=== PATIENT | male | born 1960 | race Caucasian/White ===

== ENCOUNTER 2016-12-09 19:07 | Emergency (ER) | payer MEDICARE, MEDICAID ==
[2016-12-09] MEDS ORDERED: Sodium Chloride 0.9% 10 ML Syringe FLUSH PRN (19:30)
[2016-12-09] MEDS ORDERED: Sodium Chloride 0.9% 500 ML IV SCH (19:30)
[2016-12-09] MEDS ORDERED: Sodium Chloride 0.9% 2.5 ML Syringe FLUSH PRN (19:30)
[2016-12-09] MEDS ORDERED: Ibuprofen 800 MG Tab PO ONE (19:30)
[2016-12-09] MEDS ORDERED: Albuterol/Ipratropium 3.0-0.5 MG/3 ML Neb Soln NEB ONE (19:33)
--- NOTE | 2016-12-09 19:33 | EDM.PDOC ---
ED HISTORY OF PRESENT ILLNESS - General Chief Complaint: Respiratory Problem Stated Complaint: COUGH Time Seen by Provider: 12/09/16 19:24 - History of Present Illness INITIAL COMMENTS - FREE TEXT/NARRATIVE: HISTORY AND PHYSICAL: History of present illness: The patient is a 56 y/o male with a history of diabetes using both oral and insulin and presents with a five-day history of dry hacking cough nonproductive of any phlegm. Patient follows at [facility] but did not see his provider for these issues but he did get his influenza shot this year. The patient denies any cardiac or pulmonary history and has been eating and drinking normally. According to the patient and at bedside he coughs more at night and sometimes will cough so hard that he can throw up. He does not throw up when he is not coughing and has no abdominal complaints. The patient denies any chest pain and only feels short of breath when he is coughing. Patient denies any leg pain or swelling and has no CHF history. Patient states compliance with his medications. He has not used any [id number] medications. He is noted to have a fever here in triage but denies that he feels hot. His palpitations. Review of systems: As per history of present illness and below otherwise all systems reviewed and negative. Past medical history: As per history of present illness and as reviewed below otherwise noncontributory. Surgical history: As per history of present illness and as reviewed below otherwise noncontributory. Social history: No reported history of drug or alcohol abuse. Family history: As per history of present illness and as reviewed below otherwise noncontributory. Physical exam: General: Well-developed well-nourished man speaking clearly and easily without breathlessness and vital signs of the note by me. HEENT: Atraumatic, normocephalic, pupils reactive, negative for conjunctival pallor or scleral icterus, mucous membranes moist, throat clear, neck supple, nontender, trachea midline. No cervical adenopathy or nuchal rigidity Lungs: Clear to auscultation, breath sounds equal bilaterally, chest nontender. No work or breathing or sensory muscle use no wheezing stridor Heart: S1S2, regular rhythm and slightly tachycardic rate of my evaluation, negative for clicks, rubs, or JVD. Abdomen: Soft, nondistended, nontender. Negative for masses or hepatosplenomegaly. Negative for costovertebral tenderness. Pelvis: Stable nontender. Genitourinary: Deferred. Rectal: Deferred. Extremities: Atraumatic, negative for cords or calf pain. Neurovascular unremarkable. No pedal edema or leg asymmetry Neuro: Awake, alert, oriented. Cranial nerves II through XII unremarkable. Cerebellum unremarkable. Motor and sensory unremarkable throughout. Exam nonfocal. Diagnostics: EKG chest x-ray CBC CMP lactic acid influenza swab BNP blood culture x2 Therapeutics: Gentle IV fluids duo neb Rocephin I discussed with the patient and at bedside the testing results and care plan to drop to blood cultures and give Rocephin in the ER and antibiotics for home. I will also give him a spacer and albuterol as he feels that that did help open up his airways and help with the cough. I will advise hydration and close followup with family DrDulce Maria at [facility], . I have advised on reasons to return Impression: Persistent cough, early right lower lobe pneumonia Definitive disposition and diagnosis as appropriate pending reevaluation and review of above. - Related Data Allergies/ADRs: Allergies Allergy/AdvReac Type Severity Reaction Status Date / Time acetaminophen [From Tylenol] Allergy Facial Verified 12/09/16 19:17 Swelling Penicillins Allergy Facial Verified 12/09/16 19:17 Swelling Home Meds: Home Meds Hydrochlorothiazide 25 mg PO DAILY 12/09/16 [History] Insulin Aspart [Novolog] 60 unit SQ BID 12/09/16 [History] metFORMIN [Glucophage] 500 mg PO QID 12/09/16 [History] Past Medical History HEENT History: Reports: None Cardiovascular History: Reports: Hypertension Respiratory History: Reports: None Gastrointestinal History: Reports: None Genitourinary History: Reports: None Psychiatric History: Reports: None Endocrine/Metabolic History: Reports: Diabetes, type II Oncologic (Cancer) History: Reports: None - Infectious Disease History Infectious Disease History: Reports: Chicken pox Social & Family History - Family History Family Medical History: Noncontributory - Tobacco Use Smoking Status *Q: Never Smoker - Recreational Drug Use Recreational Drug Use: No ED ROS GENERAL - Review of Systems Review Of Systems: ROS reveals no pertinent complaints other than HPI. ED EXAM, GENERAL - Physical Exam Exam: See Below (See dictation) Course - Vital Signs Last Recorded V/S: Last Vital Signs Temp 38.2 C H 12/09/16 19:20 Pulse 114 H 12/09/16 19:20 Resp 18 12/09/16 19:20 BP 152/91 H 12/09/16 19:20 Pulse Ox 95 12/09/16 19:20 - Orders/Labs/Meds Orders: Active Orders 24 hr Category Date Time Status EKG Documentation Completion [RC] STAT Care 12/09/16 19:28 Active RT Aerosol Therapy [RC] ASDIRECTED Care 12/09/16 19:33 Active Chest 2V [CR] Stat Exams 12/09/16 19:29 Taken CULTURE BLOOD [BC] Stat Lab 12/09/16 20:45 Ordered CULTURE BLOOD [BC] Stat Lab 12/09/16 20:45 Ordered Sodium Chloride 0.9% [Normal Saline] 500 ml Med 12/09/16 19:30 Active IV STAT Sodium Chloride 0.9% [Saline Flush] Med 12/09/16 19:30 Active 10 ml FLUSH ASDIRECTED PRN Sodium Chloride 0.9% [Saline Flush] Med 12/09/16 19:30 Active 2.5 ml FLUSH ASDIRECTED PRN cefTRIAXone [Rocephin in Dextrose,Iso-Osm 1 GM/50 ML] 1 Med 12/09/16 20:45 Ordered gm Premix Bag 1 bag IV ONETIME Blood Culture x2 Reflex Set [OM.PC] Stat Oth 12/09/16 20:45 Ordered Saline Lock Insert [OM.PC] Stat Oth 12/09/16 19:29 Ordered Medication Orders Sodium Chloride (Normal Saline) 500 mls @ 999 mls/hr IV STAT [facility] Last Admin: 12/09/16 20:01 Dose: 999 mls/hr Ceftriaxone Sodium/Dextrose 1 (gm/ Premix) 50 mls @ 100 mls/hr IV ONETIME ONE Stop: 12/09/16 21:14 Sodium Chloride (Saline Flush) 10 ml FLUSH ASDIRECTED PRN PRN Reason: Keep Vein Open Sodium Chloride (Saline Flush) 2.5 ml FLUSH ASDIRECTED PRN PRN Reason: Keep Vein Open Labs: Laboratory Tests 12/09/16 12/09/16 12/09/16 Range/Units 19:45 19:45 19:45 WBC 5.60 (4.0-11.0) K/uL RBC 4.58 (4.50-5.90) M/uL Hgb 13.6 (13.0-17.0) g/dL Hct 42.1 (38.0-50.0) % MCV 91.9 (80.0-98.0) fL MCH 29.7 (27.0-32.0) pg MCHC 32.3 (31.0-37.0) g/dL RDW Std Deviation 45.9 (28.0-62.0) fl RDW Coeff of Mariangel 14 (11.0-15.0) % Plt Count 148 L (150-400) K/uL MPV 11.40 (7.40-12.00) fL Add Manual Diff YES Neutrophils % (Manual) 55 (48.0-80.0) % Band Neutrophils % 3 % Lymphocytes % (Manual) 22 (16.0-40.0) % Monocytes % (Manual) 16 H (0.0-15.0) % Eosinophils % (Manual) 4 (0.0-7.0) % Nucleated RBC % 0.0 /100WBC Absolute Seg Neuts 3.1 Band Neutrophils # 0.2 Lymphocytes # (Manual) 1.2 Monocytes # (Manual) 0.9 Eosinophils # (Manual) 0.2 Nucleated RBCs # 0 K/uL Lactate 2.1 H (0.20-2.00) mmol/L Sodium 138 (136-146) mmol/L Potassium 4.7 (3.5-5.1) mmol/L Chloride 102 (98-110) mmol/L Carbon Dioxide 25 (21-31) mmol/L BUN 12 (6.0-23.0) mg/dL Creatinine 0.9 (0.6-1.5) mg/dL Est Cr Clr Drug Dosing 100.59 mL/min Estimated GFR (MDRD) > 60.0 ml/min Glucose 157 H (60-110) mg/dL Calcium 9.3 (8.8-10.8) mg/dL Total Bilirubin 0.7 (0.1-1.5) mg/dL AST 32 (5-40) IU/L ALT 36 (8-54) IU/L Alkaline Phosphatase 56 (40-150) B-Natriuretic Peptide (<100) PG/ML Total Protein 8.3 H (6.0-8.0) g/dL Albumin 4.0 (3.5-5.0) g/dL Globulin 4.3 H (2.0-3.5) g/dL Albumin/Globulin Ratio 0.9 L (1.3-2.8) 12/09/16 Range/Units 19:45 WBC (4.0-11.0) K/uL RBC (4.50-5.90) M/uL Hgb (13.0-17.0) g/dL Hct (38.0-50.0) % MCV (80.0-98.0) fL MCH (27.0-32.0) pg MCHC (31.0-37.0) g/dL RDW Std Deviation (28.0-62.0) fl RDW Coeff of Mariangel (11.0-15.0) % Plt Count (150-400) K/uL MPV (7.40-12.00) fL Add Manual Diff Neutrophils % (Manual) (48.0-80.0) % Band Neutrophils % % Lymphocytes % (Manual) (16.0-40.0) % Monocytes % (Manual) (0.0-15.0) % Eosinophils % (Manual) (0.0-7.0) % Nucleated RBC % /100WBC Absolute Seg Neuts Band Neutrophils # Lymphocytes # (Manual) Monocytes # (Manual) Eosinophils # (Manual) Nucleated RBCs # K/uL Lactate (0.20-2.00) mmol/L Sodium (136-146) mmol/L Potassium (3.5-5.1) mmol/L Chloride (98-110) mmol/L Carbon Dioxide (21-31) mmol/L BUN (6.0-23.0) mg/dL Creatinine (0.6-1.5) mg/dL Est Cr Clr Drug Dosing mL/min Estimated GFR (MDRD) ml/min Glucose (60-110) mg/dL Calcium (8.8-10.8) mg/dL Total Bilirubin (0.1-1.5) mg/dL AST (5-40) IU/L ALT (8-54) IU/L Alkaline Phosphatase (40-150) B-Natriuretic Peptide < 15 (<100) PG/ML Total Protein (6.0-8.0) g/dL Albumin (3.5-5.0) g/dL Globulin (2.0-3.5) g/dL Albumin/Globulin Ratio (1.3-2.8) Meds: Medications Generic Name Dose Route Start Last Admin Trade Name Freq PRN Reason Stop Dose Admin Sodium Chloride 500 mls @ 999 mls/hr 12/09/16 19:30 12/09/16 20:01 Normal Saline IV 999 mls/hr STAT TATYANA Administration Ceftriaxone Sodium/Dextrose 1 50 mls @ 100 mls/hr 12/09/16 20:45 gm/ Premix IV 12/09/16 21:14 ONETIME ONE Sodium Chloride 10 ml 12/09/16 19:30 Saline Flush FLUSH ASDIRECTED PRN Keep Vein Open Sodium Chloride 2.5 ml 12/09/16 19:30 Saline Flush FLUSH ASDIRECTED PRN Keep Vein Open Discontinued Medications Generic Name Dose Route Start Last Admin Trade Name Freq PRN Reason Stop Dose Admin Albuterol/Ipratropium 3 ml 12/09/16 19:33 12/09/16 19:41 Duoneb 3.0-0.5 Mg/3 Ml NEB 12/09/16 19:34 3 ml ONETIME ONE Administration Ibuprofen 800 mg 12/09/16 19:30 12/09/16 20:00 Motrin PO 12/09/16 19:31 800 mg ONETIME ONE Administration Departure - Departure Time of Disposition: 20:48 Disposition: Home, Self-Care 01 Condition: good Clinical Impression: Pneumonia Qualifiers: Pneumonia type: due to unspecified organism Laterality: right Lung location: lower lobe of lung Qualified Code(s): J18.1 - Lobar pneumonia, unspecified organism Forms: ED Department Discharge Additional Instructions: The following information is given to patients seen in the emergency department who are being discharged to home. This information is to outline your options for follow-up care. We provide all patients seen in our emergency department with a follow-up referral. The need for follow-up, as well as the timing and circumstances, are variable depending upon the specifics of your emergency department visit. If you don't have a primary care physician on staff, we will provide you with a referral. We always advise you to contact your personal physician following an emergency department visit to inform them of the circumstance of the visit and for follow-up with them and/or the need for any referrals to a consulting specialist. The emergency department will also refer you to a specialist when appropriate. This referral assures that you have the opportunity for followup care with a specialist. All of these measure are taken in an effort to provide you with optimal care, which includes your followup. Under all circumstances we always encourage you to contact your private physician who remains a resource for coordinating your care. When calling for followup care, please make the office aware that this follow-up is from your recent emergency room visit. If for any reason you are refused follow-up, please contact the [facility] emergency department at and ask to speak to the emergency department charge nurse. [facility] Primary care- Internal Medicine and Family [facility] [address] [place] [id number] [place] [address] Please call and schedule a followup appointment early next week with or one of our providers at the clinic. Push hydration rest and use over-the- counter Tylenol or ibuprofen for fevers. Take antibiotics until they are finished. Use the inhaler you have been prescribed today with a spacer as needed every 6 hours for cough or trouble with your breathing. Return to ER as needed and as discussed - My Orders Last 24 Hours: My Active Orders 12/09/16 19:28 EKG Documentation Completion [RC] STAT 12/09/16 19:29 Chest 2V [CR] Stat Saline Lock Insert [OM.PC] Stat 12/09/16 19:30 Sodium Chloride 0.9% [Normal Saline] 500 ml IV STAT Sodium Chloride 0.9% [Saline Flush] 10 ml FLUSH ASDIRECTED PRN Sodium Chloride 0.9% [Saline Flush] 2.5 ml FLUSH ASDIRECTED PRN 12/09/16 19:33 RT Aerosol Therapy [RC] ASDIRECTED 12/09/16 20:45 CULTURE BLOOD [BC] Stat CULTURE BLOOD [BC] Stat cefTRIAXone [Rocephin in Dextrose,Iso-Osm 1 GM/50 ML] 1 gm Premix Bag 1 bag IV ONETIME Blood Culture x2 Reflex Set [OM.PC] Stat - Assessment/Plan Last 24 Hours: My Active Orders 12/09/16 19:28 EKG Documentation Completion [RC] STAT 12/09/16 19:29 Chest 2V [CR] Stat Saline Lock Insert [OM.PC] Stat 12/09/16 19:30 Sodium Chloride 0.9% [Normal Saline] 500 ml IV STAT Sodium Chloride 0.9% [Saline Flush] 10 ml FLUSH ASDIRECTED PRN Sodium Chloride 0.9% [Saline Flush] 2.5 ml FLUSH ASDIRECTED PRN 12/09/16 19:33 RT Aerosol Therapy [RC] ASDIRECTED 12/09/16 20:45 CULTURE BLOOD [BC] Stat CULTURE BLOOD [BC] Stat cefTRIAXone [Rocephin in Dextrose,Iso-Osm 1 GM/50 ML] 1 gm Premix Bag 1 bag IV ONETIME Blood Culture x2 Reflex Set [OM.PC] Stat
[2016-12-09 20:34] LABS: CHLORIDE,CL 102 mmol/L (98-110); SODIUM,NA 138 mmol/L (136-146)
[2016-12-09] MEDS ORDERED: cefTRIAXone 1 GM in Premix Bag 1 BAG IV ONE (20:45)
[2016-12-10 03:11] VITALS: BP 140/81
--- NOTE | 2016-12-12 13:22 | CR ---
EXAM DATE: 12/09/16 PATIENT'S AGE: 56 Patient: KELSI DIAZ Facility: [place], [place] Site . Site : [id number] Study: XRay Chest [id number]/17/2017 8:20:38 PM Ordering Physician: Shaina Benitez Final Report: INDICATION: Cough for 5 days. COMPARISON: 06/10/2014. FINDINGS/IMPRESSION: Question of subtle new minimal infiltrate at the right lung base, possibly representing pneumonia. Lungs otherwise appear clear. Upper normal heart size, stable. Unremarkable pulmonary vasculature. No pleural effusions. Spinal degenerative changes, healed left rib fractures, and healed left clavicle fracture. Dictated by Rylan Manzano MD @ 12/09/2016 8:37:13 PM Dictated by: Rylan Manzano MD @ 12/09/2016 20:38:39 (Electronic Signature) Report Signed by Proxy and Original Signed Document filed in the Medical Record. [email or web address]
== END 2016-12-09 22:01 | disposition home or self-care (01) ==
LOC: MW.ED 19:07
DX: J18.1 Lobar pneumonia, unspecified organism (principal); I10 Essential (primary) hypertension; E11.9 Type 2 diabetes mellitus without complications; Z88.6 Allergy status to analgesic agent; Z88.0 Allergy status to penicillin; Z79.899 Other long term (current) drug therapy
CPT/HCPCS: 36415; 71020; 80053; 83605; 83880; 85025; 87040; 93005; 94664; 96361; 96365; 99284; A9270; J0696; J7040

== ENCOUNTER 2019-03-09 11:57 | Inpatient (IN) | payer MEDICARE, MEDICAID ==
[2019-03-09] MEDS ORDERED: Sodium Chloride 0.9% 10 ML Syringe FLUSH PRN (11:59)
[2019-03-09] MEDS ORDERED: Sodium Chloride 0.9% 2.5 ML Syringe FLUSH PRN (11:59)
[2019-03-09] MEDS ORDERED: Sodium Chloride 0.9% 1,000 ML IV ONE (11:59)
--- NOTE | 2019-03-09 12:05 | EDM.PDOC ---
ED HPI GENERAL MEDICAL PROBLEM - General Chief Complaint: Neurological Problem Stated Complaint: AMB Time Seen by Provider: 03/09/19 11:58 Source of Information: Reports: EMS History Limitations: Reports: No Limitations - History of Present Illness INITIAL COMMENTS - FREE TEXT/NARRATIVE: History of present illness: []Patient was driving erratically and police was notified and followed him home. He is confused unable to give any history. Patient has been admitted here for similar confusion in the past. [facility] so[facility] his [facility] and abrasion on his face and left hand. He is able to say his name and denies any pain. Patient's family requested a dementia workup. She had a similar episode in January this year and was admitted to this hospital and eloped undressed but was stopped in the parking lot by EMS as they were coming in. Review of systems: As per history of present illness and below otherwise all systems reviewed and negative. Past medical history: As per history of present illness and as reviewed below otherwise noncontributory. Surgical history: As per history of present illness and as reviewed below otherwise noncontributory. Social history: No reported history of drug or alcohol abuse. Family history: As per history of present illness and as reviewed below otherwise noncontributory. Physical exam: General: Well developed, well nourished in NAD HEENT: Abrasion right cheek,, normocephalic, pupils reactive, negative for conjunctival pallor or scleral icterus, mucous membranes moist, throat clear, neck supple, nontender, trachea midline. Lungs: Clear to auscultation, breath sounds equal bilaterally, chest nontender. Heart: S1S2, regular, negative for clicks, rubs, or JVD. Abdomen: NABS, Soft, nondistended, nontender. Negative for masses or hepatosplenomegaly. Negative for costovertebral tenderness. Pelvis: Stable nontender. Genitourinary: Deferred. Rectal: Deferred. Extremities:Abrasion left dorsal hand, negative for cords or calf pain. Neurovascular unremarkable. Neuro: Awake, alert, oriented 2 Cranial nerves II through XII unremarkable. Cerebellum unremarkable. Motor and sensory unremarkable throughout. Exam nonfocal. Skin:warm and dry Diagnostics: CT head, C-spine, CBC, chemistry, UA, EKG Therapeutics: IV hydration ED Course: Stable Impression: Altered mental status, abrasion on face and left hand Prescriptions: None Plan: Admit to Dr. Monsalve Definitive disposition and diagnosis as appropriate pending reevaluation and review of above. - Related Data Allergies Allergy/AdvReac Type Severity Reaction Status Date / Time acetaminophen [From Tylenol] Allergy Facial Verified 03/09/19 12:03 Swelling Penicillins Allergy Facial Verified 03/09/19 12:03 Swelling Home Meds: Home Meds Hydrochlorothiazide 25 mg PO DAILY 12/09/16 [History] Insulin Aspart [Novolog] 60 unit SQ BID 12/09/16 [History] metFORMIN [Glucophage] 500 mg PO QID 12/09/16 [History] Past Medical History HEENT History: Reports: None Cardiovascular History: Reports: Hypertension Respiratory History: Reports: None Gastrointestinal History: Reports: None Genitourinary History: Reports: None Psychiatric History: Reports: None Endocrine/Metabolic History: Reports: Diabetes, Type II Oncologic (Cancer) History: Reports: None - Infectious Disease History Infectious Disease History: Reports: Chicken Pox Social & Family History - Family History Family Medical History: Noncontributory ED ROS GENERAL - Review of Systems Review Of Systems: ROS reveals no pertinent complaints other than HPI. ED EXAM, GENERAL - Physical Exam Exam: See Below (History of present illness) Course - Vital Signs Last Recorded V/S: Last Vital Signs Temp 97.6 F 03/09/19 12:04 Pulse 117 H 03/09/19 12:04 Resp 18 03/09/19 12:04 BP 188/117 H 03/09/19 12:04 Pulse Ox 98 03/09/19 12:04 - Orders/Labs/Meds Orders: Active Orders 24 hr Category Date Time Status Patient Status [ADT] Stat ADT 03/09/19 13:32 Active EKG Documentation Completion [RC] STAT Care 03/09/19 11:58 Active Cervical Spine wo Cont [CT] Stat Exams 03/09/19 11:59 Taken Head wo Cont [CT] Stat Exams 03/09/19 11:58 Taken CULTURE URINE [RM] Routine Lab 03/09/19 13:25 Received Levofloxacin/Dextrose 5%-Water [Levaquin in D5W 500 MG/ Med 03/09/19 13:33 Active 100 ML] 500 mg Premix Bag 1 bag IV ONETIME Sodium Chloride 0.9% [Saline Flush] Med 03/09/19 11:59 Active 10 ml FLUSH ASDIRECTED PRN Sodium Chloride 0.9% [Saline Flush] Med 03/09/19 11:59 Active 2.5 ml FLUSH ASDIRECTED PRN Saline Lock Insert [OM.PC] Stat Oth 03/09/19 11:58 Ordered Medication Orders Docusate Sodium (Colace) 100 mg PO BID PRN PRN Reason: Constipation Heparin Sodium (Porcine) (Heparin Sodium) 5,000 units SUBCUT Q8H [facility] Levofloxacin/Dextrose 500 mg/ (Premix) 100 mls @ 100 mls/hr IV ONETIME ONE Stop: 03/09/19 14:32 Last Admin: 03/09/19 13:47 Dose: 100 mls/hr Sodium Chloride (Normal Saline) 1,000 mls @ 75 mls/hr IV ASDIRECTED [facility] Ibuprofen (Motrin) 400 mg PO Q6H PRN PRN Reason: Pain (mild 1-3) Insulin Aspart (Novolog) 0 unit SUBCUT ACBREAKFASTANDBED TATYANA; Protocol Ondansetron HCl (Zofran Odt) 4 mg PO Q6H PRN PRN Reason: nausea, able to take PO Oxycodone HCl (Oxycodone) 5 mg PO Q4H PRN PRN Reason: Pain (moderate 4-6) Sodium Chloride (Saline Flush) 10 ml FLUSH ASDIRECTED PRN PRN Reason: Keep Vein Open Last Admin: 03/09/19 12:12 Dose: 10 ml Sodium Chloride (Saline Flush) 2.5 ml FLUSH ASDIRECTED PRN PRN Reason: Keep Vein Open Last Admin: 03/09/19 12:12 Dose: 2.5 ml Temazepam (Restoril) 15 mg PO BEDTIME PRN PRN Reason: Sleep Labs: Laboratory Tests 03/09/19 03/09/19 03/09/19 Range/Units 12:05 12:05 13:20 WBC 10.01 (4.0-11.0) K/uL RBC 4.45 L (4.50-5.90) M/uL Hgb 13.6 (13.0-17.0) g/dL Hct 40.7 (38.0-50.0) % MCV 91.5 (80.0-98.0) fL MCH 30.6 (27.0-32.0) pg MCHC 33.4 (31.0-37.0) g/dL RDW Std Deviation 45.1 (28.0-62.0) fl RDW Coeff of Mariangel 14 (11.0-15.0) % Plt Count 194 (150-400) K/uL MPV 10.50 (7.40-12.00) fL Neut % (Auto) 77.9 (48.0-80.0) % Lymph % (Auto) 14.0 L (16.0-40.0) % [place] % (Auto) 6.8 (0.0-15.0) % Eos % (Auto) 1.0 (0.0-7.0) % Baso % (Auto) 0.3 (0.0-1.5) % Neut # (Auto) 7.8 H (1.4-5.7) K/uL Lymph # (Auto) 1.4 (0.6-2.4) K/uL [place] # (Auto) 0.7 (0.0-0.8) K/uL Eos # (Auto) 0.1 (0.0-0.7) K/uL Baso # (Auto) 0.0 (0.0-0.1) K/uL Nucleated RBC % 0.0 /100WBC Nucleated RBCs # 0 K/uL Sodium 135 L (136-148) mmol/L Potassium 3.4 L (3.5-5.1) mmol/L Chloride 100 (98-107) mmol/L Carbon Dioxide 25.9 (21.0-32.0) mmol/L BUN 16 (7.0-18.0) mg/dL Creatinine 0.9 (0.8-1.3) mg/dL Est Cr Clr Drug Dosing 83.65 mL/min Estimated GFR (MDRD) > 60.0 ml/min Glucose 239 H (74-106) mg/dL Calcium 8.9 (8.5-10.1) mg/dL Total Bilirubin 0.7 (0.2-1.0) mg/dL AST 33 (15-37) IU/L ALT 53 (14-63) IU/L Alkaline Phosphatase 63 (46-116) U/L Total Protein 7.7 (6.4-8.2) g/dL Albumin 3.6 (3.4-5.0) g/dL Globulin 4.1 H (2.6-4.0) g/dL Albumin/Globulin Ratio 0.9 (0.9-1.6) Urine Color YELLOW Urine Appearance HAZY Urine pH 6.0 (5.0-8.0) Ur Specific [place] 1.015 (1.001-1.035) Urine Protein NEGATIVE (NEGATIVE) mg/dL Urine Glucose (UA) NEGATIVE (NEGATIVE) mg/dL Urine Ketones NEGATIVE (NEGATIVE) mg/dL Urine Occult Blood MODERATE H (NEGATIVE) Urine Nitrite POSITIVE H (NEGATIVE) Urine Bilirubin NEGATIVE (NEGATIVE) Urine Urobilinogen 0.2 (<2.0) EU/dL Ur Leukocyte Esterase SMALL H (NEGATIVE) Urine RBC 6-8 (0-2/HPF) Urine WBC 10-15 (0-5/HPF) Ur Epithelial Cells RARE (NONE-FEW) Urine Bacteria 2+ H (NEGATIVE) Meds: Medications Generic Name Dose Route Start Last Admin Trade Name Freq PRN Reason Stop Dose Admin Docusate Sodium 100 mg 03/09/19 13:56 Colace PO BID PRN Constipation Heparin Sodium (Porcine) 5,000 units 03/09/19 14:00 Heparin Sodium SUBCUT Q8H [facility] Levofloxacin/Dextrose 500 mg/ 100 mls @ 100 mls/hr 03/09/19 13:33 03/09/19 13 :47 Premix IV 03/09/19 14:32 100 mls/hr ONETIME ONE Administration Sodium Chloride 1,000 mls @ 75 mls/hr 03/09/19 14:00 Normal Saline IV ASDIRECTED [facility] Ibuprofen 400 mg 03/09/19 13:56 Motrin PO Q6H PRN Pain (mild 1-3) Insulin Aspart 0 unit 03/09/19 21:00 Novolog SUBCUT ACBREAKFASTANDBED [facility] Protocol Ondansetron HCl 4 mg 03/09/19 13:56 Zofran Odt PO Q6H PRN nausea, able to take PO Oxycodone HCl 5 mg 03/09/19 13:56 Oxycodone PO Q4H PRN Pain (moderate 4-6) Sodium Chloride 10 ml 03/09/19 11:59 03/09/19 12:12 Saline Flush FLUSH 10 ml ASDIRECTED PRN Administration Keep Vein Open Sodium Chloride 2.5 ml 03/09/19 11:59 03/09/19 12:12 Saline Flush FLUSH 2.5 ml ASDIRECTED PRN Administration Keep Vein Open Temazepam 15 mg 03/09/19 13:56 Restoril PO BEDTIME PRN Sleep Discontinued Medications Generic Name Dose Route Start Last Admin Trade Name Freq PRN Reason Stop Dose Admin Sodium Chloride 1,000 mls @ 999 mls/hr 03/09/19 11:59 03/09/19 12:11 Normal Saline IV 03/09/19 12:59 999 mls/hr .Bolus ONE Administration Departure - Departure Time of Disposition: 14:22 Disposition: Refer to Observation Condition: Good Clinical Impression: Altered mental status Qualifiers: Altered mental status type: unspecified Qualified Code(s): R41.82 - Altered mental status, unspecified - Discharge Information *PRESCRIPTION DRUG MONITORING PROGRAM REVIEWED*: No *COPY OF PRESCRIPTION DRUG MONITORING REPORT IN PATIENT MARTIN: No - My Orders Last 24 Hours: My Active Orders 03/09/19 11:58 EKG Documentation Completion [RC] STAT Head wo Cont [CT] Stat Saline Lock Insert [OM.PC] Stat 03/09/19 11:59 Cervical Spine wo Cont [CT] Stat Sodium Chloride 0.9% [Saline Flush] 10 ml FLUSH ASDIRECTED PRN Sodium Chloride 0.9% [Saline Flush] 2.5 ml FLUSH ASDIRECTED PRN 03/09/19 13:25 CULTURE URINE [RM] Routine 03/09/19 13:32 Patient Status [ADT] Stat 03/09/19 13:33 Levofloxacin/Dextrose 5%-Water [Levaquin in D5W 500 MG/100 ML] 500 mg Premix Bag 1 bag IV ONETIME - Assessment/Plan Last 24 Hours: My Active Orders 03/09/19 11:58 EKG Documentation Completion [RC] STAT Head wo Cont [CT] Stat Saline Lock Insert [OM.PC] Stat 03/09/19 11:59 Cervical Spine wo Cont [CT] Stat Sodium Chloride 0.9% [Saline Flush] 10 ml FLUSH ASDIRECTED PRN Sodium Chloride 0.9% [Saline Flush] 2.5 ml FLUSH ASDIRECTED PRN 03/09/19 13:25 CULTURE URINE [RM] Routine 03/09/19 13:32 Patient Status [ADT] Stat 03/09/19 13:33 Levofloxacin/Dextrose 5%-Water [Levaquin in D5W 500 MG/100 ML] 500 mg Premix Bag 1 bag IV ONETIME
[2019-03-09 12:41] LABS: CHLORIDE,CL 100 mmol/L (98-107); SODIUM,NA 135 mmol/L (136-148)
[2019-03-09] MEDS ORDERED: Levofloxacin/Dextrose 5%-Water 500 MG in Premix Bag 1 BAG IV ONE (13:33)
[2019-03-09] MEDS ORDERED: oxyCODONE 5 MG Tab PO PRN (13:56)
[2019-03-09] MEDS ORDERED: Docusate Sodium 100 MG Cap PO PRN (13:56)
[2019-03-09] MEDS ORDERED: Ibuprofen 400 MG Tab PO PRN (13:56)
[2019-03-09] MEDS ORDERED: Ondansetron 4 MG Tab.DIS PO PRN (13:56)
--- NOTE | 2019-03-09 13:59 | PCM.HP ---
H&P History of Present Illness - General Date of Service: 03/09/19 Admit Problem/Dx: Admission Diagnosis/Problem Admission Diagnosis/Problem Altered mental status Source of Information: Patient, Family, Old Records History Limitations: Reports: Altered Mental Status - History of Present Illness Initial Comments - Free Text/Narative: The patient is a 58-year-old gentleman who had been presented to the emergency department by his family out of concern for his altered mental status, bizarre behavior and not taking any of his medications. The patient was previously admitted in January 2019. The patient does have a history of trying to escape at times from his previous hospitalization. The patient's family says that they cannot take care of him anymore at home. Further, the patient's family says that he has been warding urine in jars under his bed as well as not being able to take care of his medications to adequately take care of himself. The patient himself is alert and mostly oriented although he is somewhat vague in his answers and does not know how he got here. A review of records and indicate the patient had been driving erratically and had been picked up by the police department. The patient has admitted to his family that he would like to go to [facility]. Onset of Symptoms: Reports: Unknown/Unsure Duration of Symptoms: Reports: Week(s): Location: Reports: Generalized Severity: Mild Improves with: Reports: None Worsens with: Reports: None Associated Symptoms: Reports: No Other Symptoms - Related Data Allergies/Adverse Reactions: Allergies Allergy/AdvReac Type Severity Reaction Status Date / Time acetaminophen [From Tylenol] Allergy Facial Verified 03/09/19 12:03 Swelling Penicillins Allergy Facial Verified 03/09/19 12:03 Swelling Home Medications: Home Meds Hydrochlorothiazide 25 mg PO DAILY 12/09/16 [History] Insulin Aspart [Novolog] 60 unit SQ BID 12/09/16 [History] metFORMIN [Glucophage] 500 mg PO QID 12/09/16 [History] Past Medical History HEENT History: Reports: None Cardiovascular History: Reports: Hypertension Respiratory History: Reports: None Gastrointestinal History: Reports: None Genitourinary History: Reports: None Psychiatric History: Reports: None Endocrine/Metabolic History: Reports: Diabetes, Type II Oncologic (Cancer) History: Reports: None - Infectious Disease History Infectious Disease History: Reports: Chicken Pox Social & Family History - Family History Family Medical History: Noncontributory - Tobacco Use Smoking Status *Q: Unknown Ever Smoked - Living Situation & Occupation Living situation: Reports: Single, with Family Occupation: Disabled H&P Review of Systems - Review of Systems: Review Of Systems: Unable To Obtain Exam - Exam Exam: See Below - Vital Signs Vital Signs: Last Vital Signs Temp 36.4 C 03/09/19 12:04 Pulse 117 H 03/09/19 12:04 Resp 18 03/09/19 12:04 BP 188/117 H 03/09/19 12:04 Pulse Ox 98 03/09/19 12:04 Weight: 108.862 kg - Exam Quality Assessment: No: Supplemental Oxygen General: Alert, Cooperative. No: Oriented HEENT: Conjunctiva Clear, EACs Clear, EOMI, Mucosa Moist & [place], PERRLA Neck: Supple, Trachea Midline Lungs: Clear to Auscultation, Normal Respiratory Effort Cardiovascular: Regular Rate, Regular Rhythm GI/Abdominal Exam: Normal Bowel Sounds, Soft, No Distention Back Exam: Normal Inspection, Full Range of Motion Extremities: Normal Inspection, No Pedal Edema Skin: Warm, Dry, Intact Neurological: Cranial Nerves Intact, Normal Gait Neuro Extensive - Mental Status: Alert, Disorientation to Place, Slow Response to Commands. No: Normal Cognition Neuro Extensive - Motor, Sensory, Reflexes: Normal Gait Psychiatric: Alert, Depressed, Agitated - Patient Data Lab Results Last 24 hrs: Laboratory Results - last 24 hr 03/09/19 03/09/19 03/09/19 Range/Units 12:05 12:05 13:20 WBC 10.01 (4.0-11.0) K/uL RBC 4.45 L (4.50-5.90) M/uL Hgb 13.6 (13.0-17.0) g/dL Hct 40.7 (38.0-50.0) % MCV 91.5 (80.0-98.0) fL MCH 30.6 (27.0-32.0) pg MCHC 33.4 (31.0-37.0) g/dL RDW Std Deviation 45.1 (28.0-62.0) fl RDW Coeff of Mariangel 14 (11.0-15.0) % Plt Count 194 (150-400) K/uL MPV 10.50 (7.40-12.00) fL Neut % (Auto) 77.9 (48.0-80.0) % Lymph % (Auto) 14.0 L (16.0-40.0) % [place] % (Auto) 6.8 (0.0-15.0) % Eos % (Auto) 1.0 (0.0-7.0) % Baso % (Auto) 0.3 (0.0-1.5) % Neut # (Auto) 7.8 H (1.4-5.7) K/uL Lymph # (Auto) 1.4 (0.6-2.4) K/uL [place] # (Auto) 0.7 (0.0-0.8) K/uL Eos # (Auto) 0.1 (0.0-0.7) K/uL Baso # (Auto) 0.0 (0.0-0.1) K/uL Nucleated RBC % 0.0 /100WBC Nucleated RBCs # 0 K/uL Sodium 135 L (136-148) mmol/L Potassium 3.4 L (3.5-5.1) mmol/L Chloride 100 (98-107) mmol/L Carbon Dioxide 25.9 (21.0-32.0) mmol/L BUN 16 (7.0-18.0) mg/dL Creatinine 0.9 (0.8-1.3) mg/dL Est Cr Clr Drug Dosing 83.65 mL/min Estimated GFR (MDRD) > 60.0 ml/min Glucose 239 H (74-106) mg/dL Calcium 8.9 (8.5-10.1) mg/dL Total Bilirubin 0.7 (0.2-1.0) mg/dL AST 33 (15-37) IU/L ALT 53 (14-63) IU/L Alkaline Phosphatase 63 (46-116) U/L Total Protein 7.7 (6.4-8.2) g/dL Albumin 3.6 (3.4-5.0) g/dL Globulin 4.1 H (2.6-4.0) g/dL Albumin/Globulin Ratio 0.9 (0.9-1.6) Urine Color YELLOW Urine Appearance HAZY Urine pH 6.0 (5.0-8.0) Ur Specific [place] 1.015 (1.001-1.035) Urine Protein NEGATIVE (NEGATIVE) mg/dL Urine Glucose (UA) NEGATIVE (NEGATIVE) mg/dL Urine Ketones NEGATIVE (NEGATIVE) mg/dL Urine Occult Blood MODERATE H (NEGATIVE) Urine Nitrite POSITIVE H (NEGATIVE) Urine Bilirubin NEGATIVE (NEGATIVE) Urine Urobilinogen 0.2 (<2.0) EU/dL Ur Leukocyte Esterase SMALL H (NEGATIVE) Urine RBC 6-8 (0-2/HPF) Urine WBC 10-15 (0-5/HPF) Ur Epithelial Cells RARE (NONE-FEW) Urine Bacteria 2+ H (NEGATIVE) Result Diagrams: 03/09/19 12:05 03/09/19 12:05 - Problem List (1) Altered mental status SNOMED Code(s): 060355585 ICD Code: R41.82 - ALTERED MENTAL STATUS, UNSPECIFIED Status: Acute Priority: High Current Visit: Yes Qualifiers: Altered mental status type: unspecified Qualified Code(s): R41.82 - Altered mental status, unspecified (2) Delayed emotional development SNOMED Code(s): 559463421 ICD Code: F88 - OTHER DISORDERS OF PSYCHOLOGICAL DEVELOPMENT Status: Chronic Priority: High Current Visit: Yes (3) Diabetes mellitus type 2 in obese SNOMED Code(s): 24541050 ICD Code: E11.69 - TYPE 2 DIABETES MELLITUS WITH OTHER SPECIFIED COMPLICATION ; E66.9 - OBESITY, UNSPECIFIED Status: Chronic Priority: High Current Visit: Yes (4) Noncompliance SNOMED Code(s): 5223128 ICD Code: Z91.19 - PATIENT'S NONCOMPLIANCE W OTH MEDICAL TREATMENT AND REGIMEN Status: Chronic Priority: Medium Current Visit: Yes (5) Total self-care deficit SNOMED Code(s): 04055079 ICD Code: R41.89 - OTH SYMPTOMS AND SIGNS W COGNITIVE FUNCTIONS AND AWARENESS Status: Chronic Priority: High Current Visit: Yes Problem List Initiated/Reviewed/Updated: Yes Orders Last 24hrs: Active Orders 24 hr Category Date Time Status Patient Status [ADT] Stat ADT 03/09/19 13:32 Active Diabetes Education [RC] Click to Edit Care 03/09/19 13:57 Active EKG Documentation Completion [RC] STAT Care 03/09/19 11:58 Active Oxygen Therapy [RC] PRN Care 03/09/19 13:56 Active Up With Assistance [RC] ASDIRECTED Care 03/09/19 13:56 Active VTE/DVT Education [RC] PER UNIT ROUTINE Care 03/09/19 13:56 Active Vital Signs [RC] Q4H Care 03/09/19 13:56 Active [place] [employer] Diet [DIET] Diet 03/09/19 Dinner Active Cervical Spine wo Cont [CT] Stat Exams 03/09/19 11:59 Taken Head wo Cont [CT] Stat Exams 03/09/19 11:58 Taken CULTURE URINE [RM] Routine Lab 03/09/19 13:25 Received Docusate Sodium [Colace] Med 03/09/19 13:56 Active 100 mg PO BID PRN Heparin Sodium Med 03/09/19 14:00 Active 5,000 units SUBCUT Q8H Ibuprofen [Motrin] Med 03/09/19 13:56 Active 400 mg PO Q6H PRN Insulin Aspart [NovoLOG] Med 03/09/19 21:00 Active See Protocol SUBCUT ACBREAKFASTANDBED Levofloxacin/Dextrose 5%-Water [Levaquin in D5W 500 MG/ Med 03/09/19 13:33 Active 100 ML] 500 mg Premix Bag 1 bag IV ONETIME Ondansetron [Zofran ODT] Med 03/09/19 13:56 Active 4 mg PO Q6H PRN Sodium Chloride 0.9% [Normal Saline] 1,000 ml Med 03/09/19 14:00 Active IV ASDIRECTED Sodium Chloride 0.9% [Saline Flush] Med 03/09/19 11:59 Active 10 ml FLUSH ASDIRECTED PRN Sodium Chloride 0.9% [Saline Flush] Med 03/09/19 11:59 Active 2.5 ml FLUSH ASDIRECTED PRN Temazepam [Restoril] Med 03/09/19 13:56 Active 15 mg PO BEDTIME PRN oxyCODONE Med 03/09/19 13:56 Active 5 mg PO Q4H PRN Glucose Management Sub Q Reflex [OM.PC] Click To Edit Oth 03/09/19 13:56 Ordered Saline Lock Insert [OM.PC] Stat Oth 03/09/19 11:58 Ordered Resuscitation Status Routine Resus Stat 03/09/19 13:56 Ordered Medication Orders Docusate Sodium (Colace) 100 mg PO BID PRN PRN Reason: Constipation Heparin Sodium (Porcine) (Heparin Sodium) 5,000 units SUBCUT Q8H [facility] Levofloxacin/Dextrose 500 mg/ (Premix) 100 mls @ 100 mls/hr IV ONETIME ONE Stop: 03/09/19 14:32 Last Admin: 03/09/19 13:47 Dose: 100 mls/hr Sodium Chloride (Normal Saline) 1,000 mls @ 75 mls/hr IV ASDIRECTED [facility]NA Ibuprofen (Motrin) 400 mg PO Q6H PRN PRN Reason: Pain (mild 1-3) Insulin Aspart (Novolog) 0 unit SUBCUT ACBREAKFASTANDBED TATYANA; Protocol Ondansetron HCl (Zofran Odt) 4 mg PO Q6H PRN PRN Reason: nausea, able to take PO Oxycodone HCl (Oxycodone) 5 mg PO Q4H PRN PRN Reason: Pain (moderate 4-6) Sodium Chloride (Saline Flush) 10 ml FLUSH ASDIRECTED PRN PRN Reason: Keep Vein Open Last Admin: 03/09/19 12:12 Dose: 10 ml Sodium Chloride (Saline Flush) 2.5 ml FLUSH ASDIRECTED PRN PRN Reason: Keep Vein Open Last Admin: 03/09/19 12:12 Dose: 2.5 ml Temazepam (Restoril) 15 mg PO BEDTIME PRN PRN Reason: Sleep Assessment/Plan Comment:: the patient is a 58-year-old gentleman who has some developmental delay and has been lately, over the past 6 months, exhibiting rather bizarre symptoms. The patient has not been able to take care of himself according to the family and has been noncompliant with his medications especially with regards to his diabetes. The patient will be admitted to inpatient due to the intensity of service and the fact that the patient may require one-to-one setter secondary to his history of previously trying to escape from hospitalization. The patient apparently hasn't been mean or angry he has just been wanting to escape. The patient will be kept on fluids. Is no evidence of infection although this be monitored by repeat laboratory studies. I've ordered Haldol 5 mg by mouth as necessary for his agitation. The patient will also be kept on appropriate ADA diet. I've also ordered insulin sliding scale area the patient has been noncompliant with his antihypertensive medications and he'll be monitored with regards to his vital signs and his medication will be adjusted as necessary. The patient should be appropriate for discharge to [facility] after formal evaluation.
[2019-03-09] MEDS ORDERED: Haloperidol 5 MG Tab PO ONE (15:03)
[2019-03-09] MEDS: Heparin Sodium 5,000 Units/ML Vial SUBCUT SCH ×2 (15:10→22:04)
--- NOTE | 2019-03-09 15:45 | CT ---
HISTORY: Pain. TECHNIQUE: Noncontrast CT of the cervical spine. COMPARISON: No prior. 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 There is no acute cervical fracture. No cervical malalignment. Degenerative disc and joint disease present within the cervical spine. - At C2-C3, no canal or foraminal stenosis. At C3-C4, no canal or foraminal stenosis. At C4-C5, no canal or foraminal stenosis. At C5-C6, no canal or foraminal stenosis. At C6-C7, no canal or foraminal stenosis. At C7-T1, no canal or foraminal stenosis. IMPRESSION: 1. No acute cervical fracture or cervical malalignment. 2. Degenerative changes. 3. 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 Dictated by Geremias Dutton MD @ 03/09/2019 1:14:12 PM Please note that all CT scans at this facility use dose modulation, iterative reconstruction, and/or weight-based dosing when appropriate to reduce radiation dose to as low as reasonably achievable. Dictated by: Geremias Dutton MD @ 03/09/2019 13:14:15 (Electronically Signed)
--- NOTE | 2019-03-09 15:45 | CT ---
HISTORY: Pain. TECHNIQUE: Noncontrast head CT. COMPARISON: No prior. FINDINGS: There is no acute intracranial hemorrhage or acute ischemic infarct. No mass effect or midline shift. No hydrocephalus. No extra-axial collection or hematoma. No acute loss of giles-white differentiation. The mastoid air cells are clear. Paranasal sinuses are clear. No acute skull fracture. IMPRESSION: No acute intracranial injury or disease. Dictated by Geremias Dutton MD @ 03/09/2019 1:10:24 PM Please note that all CT scans at this facility use dose modulation, iterative reconstruction, and/or weight-based dosing when appropriate to reduce radiation dose to as low as reasonably achievable. Dictated by: Geremias Dutton MD @ 03/09/2019 13:10:30 (Electronically Signed)
[2019-03-09] MEDS: Insulin Aspart 100 Units/ML 3 ML Pen SUBCUT SCH ×2 (15:48→17:57)
[2019-03-09] MEDS ORDERED: Insulin Aspart 100 Units/ML 3 ML Pen SUBCUT SCH (21:00)
[2019-03-10] MEDS: Sodium Chloride 0.9% 1,000 ML IV SCH ×2 (04:08→17:52)
[2019-03-10] MEDS: Heparin Sodium 5,000 Units/ML Vial SUBCUT SCH ×3 (05:17→21:36)
--- NOTE | 2019-03-10 08:54 | PCM.PN ---
<Tristen Godwin - Last Filed: 03/10/19 08:55> - General Info Date of Service: 03/10/19 Subjective Update: 58 y/o with history of developmental delay admitted for AMS and found to have a UTI. Alert and oriented x3. Denies any pain. Received 1 dose of haldol overnight for agitation. - Patient Data Vitals - Most Recent: Last Vital Signs Temp 36.0 C 03/10/19 08:00 Pulse 67 03/10/19 08:00 Resp 16 03/10/19 08:00 BP 136/82 03/10/19 08:00 Pulse Ox 97 03/10/19 08:00 Weight - Most Recent: 108.862 kg I&O - Last 24 Hours: Intake & Output 03/09/19 03/10/19 03/10/19 22:59 06:59 14:59 Intake Total 300 1599 Output Total 150 Balance 150 1599 Lab Results Last 24 Hours: Laboratory Results - last 24 hr 03/09/19 03/09/19 03/09/19 Range/Units 12:05 12:05 13:20 WBC 10.01 (4.0-11.0) K/uL RBC 4.45 L (4.50-5.90) M/uL Hgb 13.6 (13.0-17.0) g/dL Hct 40.7 (38.0-50.0) % MCV 91.5 (80.0-98.0) fL MCH 30.6 (27.0-32.0) pg MCHC 33.4 (31.0-37.0) g/dL RDW Std Deviation 45.1 (28.0-62.0) fl RDW Coeff of Mariangel 14 (11.0-15.0) % Plt Count 194 (150-400) K/uL MPV 10.50 (7.40-12.00) fL Neut % (Auto) 77.9 (48.0-80.0) % Lymph % (Auto) 14.0 L (16.0-40.0) % Colbert % (Auto) 6.8 (0.0-15.0) % Eos % (Auto) 1.0 (0.0-7.0) % Baso % (Auto) 0.3 (0.0-1.5) % Neut # (Auto) 7.8 H (1.4-5.7) K/uL Lymph # (Auto) 1.4 (0.6-2.4) K/uL Colbert # (Auto) 0.7 (0.0-0.8) K/uL Eos # (Auto) 0.1 (0.0-0.7) K/uL Baso # (Auto) 0.0 (0.0-0.1) K/uL Nucleated RBC % 0.0 /100WBC Nucleated RBCs # 0 K/uL Sodium 135 L (136-148) mmol/L Potassium 3.4 L (3.5-5.1) mmol/L Chloride 100 (98-107) mmol/L Carbon Dioxide 25.9 (21.0-32.0) mmol/L BUN 16 (7.0-18.0) mg/dL Creatinine 0.9 (0.8-1.3) mg/dL Est Cr Clr Drug Dosing 83.65 mL/min Estimated GFR (MDRD) > 60.0 ml/min Glucose 239 H (74-106) mg/dL POC Glucose (60-110) mg/dL Calcium 8.9 (8.5-10.1) mg/dL Total Bilirubin 0.7 (0.2-1.0) mg/dL AST 33 (15-37) IU/L ALT 53 (14-63) IU/L Alkaline Phosphatase 63 (46-116) U/L Total Protein 7.7 (6.4-8.2) g/dL Albumin 3.6 (3.4-5.0) g/dL Globulin 4.1 H (2.6-4.0) g/dL Albumin/Globulin Ratio 0.9 (0.9-1.6) Urine Color YELLOW Urine Appearance HAZY Urine pH 6.0 (5.0-8.0) Ur Specific [place] 1.015 (1.001-1.035) Urine Protein NEGATIVE (NEGATIVE) mg/dL Urine Glucose (UA) NEGATIVE (NEGATIVE) mg/dL Urine Ketones NEGATIVE (NEGATIVE) mg/dL Urine Occult Blood MODERATE H (NEGATIVE) Urine Nitrite POSITIVE H (NEGATIVE) Urine Bilirubin NEGATIVE (NEGATIVE) Urine Urobilinogen 0.2 (<2.0) EU/dL Ur Leukocyte Esterase SMALL H (NEGATIVE) Urine RBC 6-8 (0-2/HPF) Urine WBC 10-15 (0-5/HPF) Ur Epithelial Cells RARE (NONE-FEW) Urine Bacteria 2+ H (NEGATIVE) 03/09/19 03/09/19 03/10/19 Range/Units 15:19 22:49 06:30 WBC (4.0-11.0) K/uL RBC (4.50-5.90) M/uL Hgb (13.0-17.0) g/dL Hct (38.0-50.0) % MCV (80.0-98.0) fL MCH (27.0-32.0) pg MCHC (31.0-37.0) g/dL RDW Std Deviation (28.0-62.0) fl RDW Coeff of Mariangel (11.0-15.0) % Plt Count (150-400) K/uL MPV (7.40-12.00) fL Neut % (Auto) (48.0-80.0) % Lymph % (Auto) (16.0-40.0) % Colbert % (Auto) (0.0-15.0) % Eos % (Auto) (0.0-7.0) % Baso % (Auto) (0.0-1.5) % Neut # (Auto) (1.4-5.7) K/uL Lymph # (Auto) (0.6-2.4) K/uL Colbert # (Auto) (0.0-0.8) K/uL Eos # (Auto) (0.0-0.7) K/uL Baso # (Auto) (0.0-0.1) K/uL Nucleated RBC % /100WBC Nucleated RBCs # K/uL Sodium (136-148) mmol/L Potassium (3.5-5.1) mmol/L Chloride (98-107) mmol/L Carbon Dioxide (21.0-32.0) mmol/L BUN (7.0-18.0) mg/dL Creatinine (0.8-1.3) mg/dL Est Cr Clr Drug Dosing mL/min Estimated GFR (MDRD) ml/min Glucose (74-106) mg/dL POC Glucose 302 H 290 H 185 H (60-110) mg/dL Calcium (8.5-10.1) mg/dL Total Bilirubin (0.2-1.0) mg/dL AST (15-37) IU/L ALT (14-63) IU/L Alkaline Phosphatase (46-116) U/L Total Protein (6.4-8.2) g/dL Albumin (3.4-5.0) g/dL Globulin (2.6-4.0) g/dL Albumin/Globulin Ratio (0.9-1.6) Urine Color Urine Appearance Urine pH (5.0-8.0) Ur Specific [place] (1.001-1.035) Urine Protein (NEGATIVE) mg/dL Urine Glucose (UA) (NEGATIVE) mg/dL Urine Ketones (NEGATIVE) mg/dL Urine Occult Blood (NEGATIVE) Urine Nitrite (NEGATIVE) Urine Bilirubin (NEGATIVE) Urine Urobilinogen (<2.0) EU/dL Ur Leukocyte Esterase (NEGATIVE) Urine RBC (0-2/HPF) Urine WBC (0-5/HPF) Ur Epithelial Cells (NONE-FEW) Urine Bacteria (NEGATIVE) 03/10/19 Range/Units 08:35 WBC 5.23 (4.0-11.0) K/uL RBC 3.85 L (4.50-5.90) M/uL Hgb 11.6 L (13.0-17.0) g/dL Hct 36.3 L (38.0-50.0) % MCV 94.3 (80.0-98.0) fL MCH 30.1 (27.0-32.0) pg MCHC 32.0 (31.0-37.0) g/dL RDW Std Deviation 47.8 (28.0-62.0) fl RDW Coeff of Mariangel 14 (11.0-15.0) % Plt Count 163 (150-400) K/uL MPV 10.30 (7.40-12.00) fL Neut % (Auto) 64.7 (48.0-80.0) % Lymph % (Auto) 22.8 (16.0-40.0) % Colbert % (Auto) 9.4 (0.0-15.0) % Eos % (Auto) 2.7 (0.0-7.0) % Baso % (Auto) 0.4 (0.0-1.5) % Neut # (Auto) 3.4 (1.4-5.7) K/uL Lymph # (Auto) 1.2 (0.6-2.4) K/uL Colbert # (Auto) 0.5 (0.0-0.8) K/uL Eos # (Auto) 0.1 (0.0-0.7) K/uL Baso # (Auto) 0.0 (0.0-0.1) K/uL Nucleated RBC % 0.0 /100WBC Nucleated RBCs # 0 K/uL Sodium (136-148) mmol/L Potassium (3.5-5.1) mmol/L Chloride (98-107) mmol/L Carbon Dioxide (21.0-32.0) mmol/L BUN (7.0-18.0) mg/dL Creatinine (0.8-1.3) mg/dL Est Cr Clr Drug Dosing mL/min Estimated GFR (MDRD) ml/min Glucose (74-106) mg/dL POC Glucose (60-110) mg/dL Calcium (8.5-10.1) mg/dL Total Bilirubin (0.2-1.0) mg/dL AST (15-37) IU/L ALT (14-63) IU/L Alkaline Phosphatase (46-116) U/L Total Protein (6.4-8.2) g/dL Albumin (3.4-5.0) g/dL Globulin (2.6-4.0) g/dL Albumin/Globulin Ratio (0.9-1.6) Urine Color Urine Appearance Urine pH (5.0-8.0) Ur Specific [place] (1.001-1.035) Urine Protein (NEGATIVE) mg/dL Urine Glucose (UA) (NEGATIVE) mg/dL Urine Ketones (NEGATIVE) mg/dL Urine Occult Blood (NEGATIVE) Urine Nitrite (NEGATIVE) Urine Bilirubin (NEGATIVE) Urine Urobilinogen (<2.0) EU/dL Ur Leukocyte Esterase (NEGATIVE) Urine RBC (0-2/HPF) Urine WBC (0-5/HPF) Ur Epithelial Cells (NONE-FEW) Urine Bacteria (NEGATIVE) Med Orders - Current: Current Medications Docusate Sodium (Colace) 100 mg PO BID PRN PRN Reason: Constipation Heparin Sodium (Porcine) (Heparin Sodium) 5,000 units SUBCUT Q8H [facility] Last Admin: 03/10/19 05:17 Dose: 5,000 units Sodium Chloride (Normal Saline) 1,000 mls @ 75 mls/hr IV ASDIRECTED [facility] Last Admin: 03/10/19 04:08 Dose: 75 mls/hr Ibuprofen (Motrin) 400 mg PO Q6H PRN PRN Reason: Pain (mild 1-3) Insulin Aspart (Novolog) 0 unit SUBCUT TIDAC [facility]; Protocol Last Admin: 03/09/19 17:57 Dose: Not Given Ondansetron HCl (Zofran Odt) 4 mg PO Q6H PRN PRN Reason: nausea, able to take PO Oxycodone HCl (Oxycodone) 5 mg PO Q4H PRN PRN Reason: Pain (moderate 4-6) Sodium Chloride (Saline Flush) 10 ml FLUSH ASDIRECTED PRN PRN Reason: Keep Vein Open Last Admin: 03/09/19 12:12 Dose: 10 ml Sodium Chloride (Saline Flush) 2.5 ml FLUSH ASDIRECTED PRN PRN Reason: Keep Vein Open Last Admin: 03/09/19 12:12 Dose: 2.5 ml Temazepam (Restoril) 15 mg PO BEDTIME PRN PRN Reason: Sleep Discontinued Medications Haloperidol (Haldol) 5 mg PO ONETIME ONE Stop: 03/09/19 15:04 Last Admin: 03/09/19 15:11 Dose: 5 mg Sodium Chloride (Normal Saline) 1,000 mls @ 999 mls/hr IV .Bolus ONE Stop: 03/09/19 12:59 Last Admin: 03/09/19 12:11 Dose: 999 mls/hr Levofloxacin/Dextrose 500 mg/ (Premix) 100 mls @ 100 mls/hr IV ONETIME ONE Stop: 03/09/19 14:32 Last Admin: 03/09/19 13:47 Dose: 100 mls/hr Insulin Aspart (Novolog) 0 unit SUBCUT ACBREAKFASTANDBED [facility]; Protocol - Exam General: Alert, Oriented, Cooperative, No Acute Distress Lungs: Clear to Auscultation, Normal Respiratory Effort, Wheezing. No: Crackles Cardiovascular: Regular Rate, Regular Rhythm GI/Abdominal Exam: Normal Bowel Sounds, Soft, Non-Tender Extremities: Normal Inspection, No Pedal Edema - Problem List Review Problem List Initiated/Reviewed/Updated: Yes - Plan Plan:: A: 1. UTI 2. self care deficit 3. PMH developmental delay P: 1. UTI- pending urine culture. ordered ceftriaxone daily. 2. Self care deficit- pending placement Dispo: pending placement <Karlos Monsalve - Last Filed: 03/10/19 14:24> - General Info Admission Dx/Problem (Free Text): I have seen and examined to patient independently of medical surgical tech, Tristen Palma MD. I have discussed the case for care of this patient with him. I have reviewed and approve of the plan of care as outlined by medical surgical tech. Please see orders. - Patient Data Vitals - Most Recent: Last Vital Signs Temp 36.3 C 03/10/19 12:00 Pulse 75 03/10/19 12:00 Resp 18 03/10/19 12:00 BP 140/74 03/10/19 12:00 Pulse Ox 96 03/10/19 14:00 I&O - Last 24 Hours: Intake & Output 03/09/19 03/10/19 03/10/19 22:59 06:59 14:59 Intake Total 300 1599 50 Output Total 150 Balance 150 1599 50 Lab Results Last 24 Hours: Laboratory Results - last 24 hr 03/09/19 03/09/19 03/10/19 Range/Units 15:19 22:49 06:30 WBC (4.0-11.0) K/uL RBC (4.50-5.90) M/uL Hgb (13.0-17.0) g/dL Hct (38.0-50.0) % MCV (80.0-98.0) fL MCH (27.0-32.0) pg MCHC (31.0-37.0) g/dL RDW Std Deviation (28.0-62.0) fl RDW Coeff of Mariangel (11.0-15.0) % Plt Count (150-400) K/uL MPV (7.40-12.00) fL Neut % (Auto) (48.0-80.0) % Lymph % (Auto) (16.0-40.0) % [place] % (Auto) (0.0-15.0) % Eos % (Auto) (0.0-7.0) % Baso % (Auto) (0.0-1.5) % Neut # (Auto) (1.4-5.7) K/uL Lymph # (Auto) (0.6-2.4) K/uL Colbert # (Auto) (0.0-0.8) K/uL Eos # (Auto) (0.0-0.7) K/uL Baso # (Auto) (0.0-0.1) K/uL Nucleated RBC % /100WBC Nucleated RBCs # K/uL Sodium (136-148) mmol/L Potassium (3.5-5.1) mmol/L Chloride (98-107) mmol/L Carbon Dioxide (21.0-32.0) mmol/L BUN (7.0-18.0) mg/dL Creatinine (0.8-1.3) mg/dL Est Cr Clr Drug Dosing mL/min Estimated GFR (MDRD) ml/min Glucose (74-106) mg/dL POC Glucose 302 H 290 H 185 H (60-110) mg/dL Calcium (8.5-10.1) mg/dL Total Bilirubin (0.2-1.0) mg/dL AST (15-37) IU/L ALT (14-63) IU/L Alkaline Phosphatase (46-116) U/L Total Protein (6.4-8.2) g/dL Albumin (3.4-5.0) g/dL Globulin (2.6-4.0) g/dL Albumin/Globulin Ratio (0.9-1.6) Triglycerides (0-200) mg/dL Cholesterol (50-200) mg/dL LDL Cholesterol, Calc (60-180) mg/dL VLDL Cholesterol (5-55) mg/dL HDL Cholesterol (40-60) mg/dL Cholesterol/HDL Ratio (3.3-6.0) 03/10/19 03/10/19 03/10/19 Range/Units 08:35 08:35 08:35 WBC 5.23 (4.0-11.0) K/uL RBC 3.85 L (4.50-5.90) M/uL Hgb 11.6 L (13.0-17.0) g/dL Hct 36.3 L (38.0-50.0) % MCV 94.3 (80.0-98.0) fL MCH 30.1 (27.0-32.0) pg MCHC 32.0 (31.0-37.0) g/dL RDW Std Deviation 47.8 (28.0-62.0) fl RDW Coeff of Mariangel 14 (11.0-15.0) % Plt Count 163 (150-400) K/uL MPV 10.30 (7.40-12.00) fL Neut % (Auto) 64.7 (48.0-80.0) % Lymph % (Auto) 22.8 (16.0-40.0) % [place]bert % (Auto) 9.4 (0.0-15.0) % Eos % (Auto) 2.7 (0.0-7.0) % Baso % (Auto) 0.4 (0.0-1.5) % Neut # (Auto) 3.4 (1.4-5.7) K/uL Lymph # (Auto) 1.2 (0.6-2.4) K/uL [place]bert # (Auto) 0.5 (0.0-0.8) K/uL Eos # (Auto) 0.1 (0.0-0.7) K/uL Baso # (Auto) 0.0 (0.0-0.1) K/uL Nucleated RBC % 0.0 /100WBC Nucleated RBCs # 0 K/uL Sodium 138 (136-148) mmol/L Potassium 4.0 (3.5-5.1) mmol/L Chloride 105 (98-107) mmol/L Carbon Dioxide 28.7 (21.0-32.0) mmol/L BUN 11 (7.0-18.0) mg/dL Creatinine 0.8 (0.8-1.3) mg/dL Est Cr Clr Drug Dosing 94.10 mL/min Estimated GFR (MDRD) > 60.0 ml/min Glucose 198 H (74-106) mg/dL POC Glucose (60-110) mg/dL Calcium 8.1 L (8.5-10.1) mg/dL Total Bilirubin 0.4 (0.2-1.0) mg/dL AST 22 (15-37) IU/L ALT 41 (14-63) IU/L Alkaline Phosphatase 51 (46-116) U/L Total Protein 5.9 L (6.4-8.2) g/dL Albumin 2.9 L (3.4-5.0) g/dL Globulin 3.0 (2.6-4.0) g/dL Albumin/Globulin Ratio 1.0 (0.9-1.6) Triglycerides 136 (0-200) mg/dL Cholesterol 160 (50-200) mg/dL LDL Cholesterol, Calc 85 (60-180) mg/dL VLDL Cholesterol 27 (5-55) mg/dL HDL Cholesterol 48 (40-60) mg/dL Cholesterol/HDL Ratio 3.3 (3.3-6.0) 03/10/19 Range/Units 12:42 WBC (4.0-11.0) K/uL RBC (4.50-5.90) M/uL Hgb (13.0-17.0) g/dL Hct (38.0-50.0) % MCV (80.0-98.0) fL MCH (27.0-32.0) pg MCHC (31.0-37.0) g/dL RDW Std Deviation (28.0-62.0) fl RDW Coeff of [place]angel (11.0-15.0) % Plt Count (150-400) K/uL MPV (7.40-12.00) fL Neut % (Auto) (48.0-80.0) % Lymph % (Auto) (16.0-40.0) % [place] % (Auto) (0.0-15.0) % Eos % (Auto) (0.0-7.0) % Baso % (Auto) (0.0-1.5) % Neut # (Auto) (1.4-5.7) K/uL Lymph # (Auto) (0.6-2.4) K/uL [place] # (Auto) (0.0-0.8) K/uL Eos # (Auto) (0.0-0.7) K/uL Baso # (Auto) (0.0-0.1) K/uL Nucleated RBC % /100WBC Nucleated RBCs # K/uL Sodium (136-148) mmol/L Potassium (3.5-5.1) mmol/L Chloride (98-107) mmol/L Carbon Dioxide (21.0-32.0) mmol/L BUN (7.0-18.0) mg/dL Creatinine (0.8-1.3) mg/dL Est Cr Clr Drug Dosing mL/min Estimated GFR (MDRD) ml/min Glucose (74-106) mg/dL POC Glucose 217 H (60-110) mg/dL Calcium (8.5-10.1) mg/dL Total Bilirubin (0.2-1.0) mg/dL AST (15-37) IU/L ALT (14-63) IU/L Alkaline Phosphatase (46-116) U/L Total Protein (6.4-8.2) g/dL Albumin (3.4-5.0) g/dL Globulin (2.6-4.0) g/dL Albumin/Globulin Ratio (0.9-1.6) Triglycerides (0-200) mg/dL Cholesterol (50-200) mg/dL LDL Cholesterol, Calc (60-180) mg/dL VLDL Cholesterol (5-55) mg/dL HDL Cholesterol (40-60) mg/dL Cholesterol/HDL Ratio (3.3-6.0) Med Orders - Current: Current Medications Docusate Sodium (Colace) 100 mg PO BID PRN PRN Reason: Constipation Heparin Sodium (Porcine) (Heparin Sodium) 5,000 units SUBCUT Q8H [facility] Last Admin: 03/10/19 05:17 Dose: 5,000 units Sodium Chloride (Normal Saline) 1,000 mls @ 75 mls/hr IV ASDIRECTED [facility] Last Admin: 03/10/19 04:08 Dose: 75 mls/hr Ceftriaxone Sodium/Dextrose 1 (gm/ Premix) 50 mls @ 100 mls/hr IV Q24H [facility] Last Admin: 03/10/19 09:09 Dose: 100 mls/hr Ibuprofen (Motrin) 400 mg PO Q6H PRN PRN Reason: Pain (mild 1-3) Insulin Aspart (Novolog) 0 unit SUBCUT TIDAC [facility]; Protocol Last Admin: 03/10/19 09:31 Dose: Not Given Ondansetron HCl (Zofran Odt) 4 mg PO Q6H PRN PRN Reason: nausea, able to take PO Oxycodone HCl (Oxycodone) 5 mg PO Q4H PRN PRN Reason: Pain (moderate 4-6) Sodium Chloride (Saline Flush) 10 ml FLUSH ASDIRECTED PRN PRN Reason: Keep Vein Open Last Admin: 03/09/19 12:12 Dose: 10 ml Sodium Chloride (Saline Flush) 2.5 ml FLUSH ASDIRECTED PRN PRN Reason: Keep Vein Open Last Admin: 03/09/19 12:12 Dose: 2.5 ml Temazepam (Restoril) 15 mg PO BEDTIME PRN PRN Reason: Sleep Discontinued Medications Haloperidol (Haldol) 5 mg PO ONETIME ONE Stop: 03/09/19 15:04 Last Admin: 03/09/19 15:11 Dose: 5 mg Sodium Chloride (Normal Saline) 1,000 mls @ 999 mls/hr IV .Bolus ONE Stop: 03/09/19 12:59 Last Admin: 03/09/19 12:11 Dose: 999 mls/hr Levofloxacin/Dextrose 500 mg/ (Premix) 100 mls @ 100 mls/hr IV ONETIME ONE Stop: 03/09/19 14:32 Last Admin: 03/09/19 13:47 Dose: 100 mls/hr Insulin Aspart (Novolog) 0 unit SUBCUT ACBREAKFASTANDBED [facility]; Protocol - Problem List & Annotations (1) Altered mental status SNOMED Code(s): 728054593 Code(s): R41.82 - ALTERED MENTAL STATUS, UNSPECIFIED Status: Acute Priority: High Current Visit: Yes Qualifiers: Altered mental status type: unspecified Qualified Code(s): R41.82 - Altered mental status, unspecified (2) Delayed emotional development SNOMED Code(s): 659306345 Code(s): F88 - OTHER DISORDERS OF PSYCHOLOGICAL DEVELOPMENT Status: Chronic Priority: High Current Visit: Yes (3) Diabetes mellitus type 2 in obese SNOMED Code(s): 21844011 Code(s): E11.69 - TYPE 2 DIABETES MELLITUS WITH OTHER SPECIFIED COMPLICATION ; E66.9 - OBESITY, UNSPECIFIED Status: Chronic Priority: High Current Visit: Yes (4) Noncompliance SNOMED Code(s): 4283357 Code(s): Z91.19 - PATIENT'S NONCOMPLIANCE W OTH MEDICAL TREATMENT AND REGIMEN Status: Chronic Priority: Medium Current Visit: Yes (5) Total self-care deficit SNOMED Code(s): 94633369 Code(s): R41.89 - OTH SYMPTOMS AND SIGNS W COGNITIVE FUNCTIONS AND AWARENESS Status: Chronic Priority: High Current Visit: Yes - My Orders Last 24 Hours: My Active Orders 03/09/19 13:56 Oxygen Therapy [RC] PRN Up With Assistance [RC] ASDIRECTED VTE/DVT Education [RC] PER UNIT ROUTINE Vital Signs [RC] Q4H Docusate Sodium [Colace] 100 mg PO BID PRN Ibuprofen [Motrin] 400 mg PO Q6H PRN Ondansetron [Zofran ODT] 4 mg PO Q6H PRN Temazepam [Restoril] 15 mg PO BEDTIME PRN oxyCODONE 5 mg PO Q4H PRN Glucose Management Sub Q Reflex [OM.PC] Click To Edit Resuscitation Status Routine 03/09/19 13:57 Diabetes Education [RC] Click to Edit 03/09/19 14:00 Heparin Sodium 5,000 units SUBCUT Q8H Sodium Chloride 0.9% [Normal Saline] 1,000 ml IV ASDIRECTED 03/09/19 14:52 Admission Status [Patient Status] [ADT] Routine 03/09/19 15:34 Blood Glucose Check, Bedside [RC] WITHMEALSANDBED Oxygen Therapy [RC] PRN VTE/DVT Education [RC] PER UNIT ROUTINE Vital Signs [RC] Q4H 03/09/19 15:38 Diabetes Education [RC] Click to Edit Oxygen Therapy [RC] PRN VTE/DVT Education [RC] PER UNIT ROUTINE Vital Signs [RC] Q4H Glucose Management Sub Q Reflex [OM.PC] Click To Edit 03/09/19 17:00 Insulin Aspart [NovoLOG] See Protocol SUBCUT TIDAC 03/09/19 Dinner [employer] Diet [DIET]
[2019-03-10] MEDS: cefTRIAXone 1 GM in Premix Bag 1 BAG IV SCH (09:09)
[2019-03-10 09:15] LABS: CHLORIDE,CL 105 mmol/L (98-107); SODIUM,NA 138 mmol/L (136-148)
[2019-03-10] MEDS: Insulin Aspart 100 Units/ML 3 ML Pen SUBCUT SCH ×3 (09:31→17:49)
[2019-03-11] MEDS: Heparin Sodium 5,000 Units/ML Vial SUBCUT SCH ×3 (06:03→21:55)
[2019-03-11 06:38] LABS: CHLORIDE,CL 104 mmol/L (98-107); SODIUM,NA 137 mmol/L (136-148)
[2019-03-11] MEDS: Sodium Chloride 0.9% 1,000 ML IV SCH (06:41)
[2019-03-11] MEDS: Insulin Aspart 100 Units/ML 3 ML Pen SUBCUT SCH ×3 (07:34→17:33)
--- NOTE | 2019-03-11 07:57 | PCM.PN ---
<Jaye Cutler M - Last Filed: 03/11/19 08:54> - General Info Date of Service: 03/11/19 Admission Dx/Problem (Free Text): AMS, UTI Subjective Update: Denies any concerns today. No pain. Eating and drinking good. No chest pain or SOB. Functional Status: Reports: Pain Controlled, Tolerating Diet, Ambulating, Urinating - Review of Systems General: Reports: No Symptoms. Denies: Fever, Weakness, Fatigue HEENT: Reports: No Symptoms. Denies: Headaches, Sore Throat, Visual Changes Pulmonary: Reports: No Symptoms. Denies: Shortness of Breath, Cough, Sputum Cardiovascular: Reports: No Symptoms Gastrointestinal: Reports: No Symptoms. Denies: Abdominal Pain, Nausea, Vomiting Genitourinary: Reports: No Symptoms. Denies: Dysuria, Frequency Musculoskeletal: Reports: No Symptoms Skin: Reports: No Symptoms Neurological: Reports: No Symptoms Psychiatric: Reports: No Symptoms - Patient Data Vitals - Most Recent: Last Vital Signs Temp 97.6 F 03/11/19 07:45 Pulse 78 03/11/19 07:45 Resp 16 03/11/19 07:45 BP 171/87 H 03/11/19 07:45 Pulse Ox 93 L 03/11/19 07:45 Weight - Most Recent: 108.862 kg I&O - Last 24 Hours: Intake & Output 03/10/19 03/11/19 03/11/19 22:59 06:59 14:59 Intake Total 2489 1959 Output Total 0 200 Balance 2489 1759 Lab Results Last 24 Hours: Laboratory Results - last 24 hr 03/10/19 03/10/19 03/10/19 Range/Units 08:35 08:35 08:35 WBC 5.23 (4.0-11.0) K/uL RBC 3.85 L (4.50-5.90) M/uL Hgb 11.6 L (13.0-17.0) g/dL Hct 36.3 L (38.0-50.0) % MCV 94.3 (80.0-98.0) fL MCH 30.1 (27.0-32.0) pg MCHC 32.0 (31.0-37.0) g/dL RDW Std Deviation 47.8 (28.0-62.0) fl RDW Coeff of Mariangel 14 (11.0-15.0) % Plt Count 163 (150-400) K/uL MPV 10.30 (7.40-12.00) fL Neut % (Auto) 64.7 (48.0-80.0) % Lymph % (Auto) 22.8 (16.0-40.0) % Walton % (Auto) 9.4 (0.0-15.0) % Eos % (Auto) 2.7 (0.0-7.0) % Baso % (Auto) 0.4 (0.0-1.5) % Neut # (Auto) 3.4 (1.4-5.7) K/uL Lymph # (Auto) 1.2 (0.6-2.4) K/uL Walton # (Auto) 0.5 (0.0-0.8) K/uL Eos # (Auto) 0.1 (0.0-0.7) K/uL Baso # (Auto) 0.0 (0.0-0.1) K/uL Nucleated RBC % 0.0 /100WBC Nucleated RBCs # 0 K/uL Sodium 138 (136-148) mmol/L Potassium 4.0 (3.5-5.1) mmol/L Chloride 105 (98-107) mmol/L Carbon Dioxide 28.7 (21.0-32.0) mmol/L BUN 11 (7.0-18.0) mg/dL Creatinine 0.8 (0.8-1.3) mg/dL Est Cr Clr Drug Dosing 94.10 mL/min Estimated GFR (MDRD) > 60.0 ml/min Glucose 198 H (74-106) mg/dL POC Glucose (60-110) mg/dL Calcium 8.1 L (8.5-10.1) mg/dL Total Bilirubin 0.4 (0.2-1.0) mg/dL AST 22 (15-37) IU/L ALT 41 (14-63) IU/L Alkaline Phosphatase 51 (46-116) U/L Total Protein 5.9 L (6.4-8.2) g/dL Albumin 2.9 L (3.4-5.0) g/dL Globulin 3.0 (2.6-4.0) g/dL Albumin/Globulin Ratio 1.0 (0.9-1.6) Triglycerides 136 (0-200) mg/dL Cholesterol 160 (50-200) mg/dL LDL Cholesterol, Calc 85 (60-180) mg/dL VLDL Cholesterol 27 (5-55) mg/dL HDL Cholesterol 48 (40-60) mg/dL Cholesterol/HDL Ratio 3.3 (3.3-6.0) 03/10/19 03/10/19 03/11/19 Range/Units 12:42 16:42 05:51 WBC (4.0-11.0) K/uL RBC (4.50-5.90) M/uL Hgb (13.0-17.0) g/dL Hct (38.0-50.0) % MCV (80.0-98.0) fL MCH (27.0-32.0) pg MCHC (31.0-37.0) g/dL RDW Std Deviation (28.0-62.0) fl RDW Coeff of Mariangel (11.0-15.0) % Plt Count (150-400) K/uL MPV (7.40-12.00) fL Neut % (Auto) (48.0-80.0) % Lymph % (Auto) (16.0-40.0) % Walton % (Auto) (0.0-15.0) % Eos % (Auto) (0.0-7.0) % Baso % (Auto) (0.0-1.5) % Neut # (Auto) (1.4-5.7) K/uL Lymph # (Auto) (0.6-2.4) K/uL Walton # (Auto) (0.0-0.8) K/uL Eos # (Auto) (0.0-0.7) K/uL Baso # (Auto) (0.0-0.1) K/uL Nucleated RBC % /100WBC Nucleated RBCs # K/uL Sodium 137 (136-148) mmol/L Potassium 4.1 (3.5-5.1) mmol/L Chloride 104 (98-107) mmol/L Carbon Dioxide 29.6 (21.0-32.0) mmol/L BUN 15 (7.0-18.0) mg/dL Creatinine 0.8 (0.8-1.3) mg/dL Est Cr Clr Drug Dosing 94.10 mL/min Estimated GFR (MDRD) > 60.0 ml/min Glucose 183 H (74-106) mg/dL POC Glucose 217 H 256 H (60-110) mg/dL Calcium 8.6 (8.5-10.1) mg/dL Total Bilirubin (0.2-1.0) mg/dL AST (15-37) IU/L ALT (14-63) IU/L Alkaline Phosphatase (46-116) U/L Total Protein (6.4-8.2) g/dL Albumin (3.4-5.0) g/dL Globulin (2.6-4.0) g/dL Albumin/Globulin Ratio (0.9-1.6) Triglycerides (0-200) mg/dL Cholesterol (50-200) mg/dL LDL Cholesterol, Calc (60-180) mg/dL VLDL Cholesterol (5-55) mg/dL HDL Cholesterol (40-60) mg/dL Cholesterol/HDL Ratio (3.3-6.0) 03/11/19 Range/Units 06:05 WBC (4.0-11.0) K/uL RBC (4.50-5.90) M/uL Hgb (13.0-17.0) g/dL Hct (38.0-50.0) % MCV (80.0-98.0) fL MCH (27.0-32.0) pg MCHC (31.0-37.0) g/dL RDW Std Deviation (28.0-62.0) fl RDW Coeff of Mariangel (11.0-15.0) % Plt Count (150-400) K/uL MPV (7.40-12.00) fL Neut % (Auto) (48.0-80.0) % Lymph % (Auto) (16.0-40.0) % Walton % (Auto) (0.0-15.0) % Eos % (Auto) (0.0-7.0) % Baso % (Auto) (0.0-1.5) % Neut # (Auto) (1.4-5.7) K/uL Lymph # (Auto) (0.6-2.4) K/uL Walton # (Auto) (0.0-0.8) K/uL Eos # (Auto) (0.0-0.7) K/uL Baso # (Auto) (0.0-0.1) K/uL Nucleated RBC % /100WBC Nucleated RBCs # K/uL Sodium (136-148) mmol/L Potassium (3.5-5.1) mmol/L Chloride (98-107) mmol/L Carbon Dioxide (21.0-32.0) mmol/L BUN (7.0-18.0) mg/dL Creatinine (0.8-1.3) mg/dL Est Cr Clr Drug Dosing mL/min Estimated GFR (MDRD) ml/min Glucose (74-106) mg/dL POC Glucose 174 H (60-110) mg/dL Calcium (8.5-10.1) mg/dL Total Bilirubin (0.2-1.0) mg/dL AST (15-37) IU/L ALT (14-63) IU/L Alkaline Phosphatase (46-116) U/L Total Protein (6.4-8.2) g/dL Albumin (3.4-5.0) g/dL Globulin (2.6-4.0) g/dL Albumin/Globulin Ratio (0.9-1.6) Triglycerides (0-200) mg/dL Cholesterol (50-200) mg/dL LDL Cholesterol, Calc (60-180) mg/dL VLDL Cholesterol (5-55) mg/dL HDL Cholesterol (40-60) mg/dL Cholesterol/HDL Ratio (3.3-6.0) Med Orders - Current: Current Medications Docusate Sodium (Colace) 100 mg PO BID PRN PRN Reason: Constipation Heparin Sodium (Porcine) (Heparin Sodium) 5,000 units SUBCUT Q8H [facility] Last Admin: 03/11/19 06:03 Dose: 5,000 units Ceftriaxone Sodium/Dextrose 1 (gm/ Premix) 50 mls @ 100 mls/hr IV Q24H [facility] Last Admin: 03/10/19 09:09 Dose: 100 mls/hr Ibuprofen (Motrin) 400 mg PO Q6H PRN PRN Reason: Pain (mild 1-3) Insulin Aspart (Novolog) 0 unit SUBCUT TIDAC [facility]YANA; Protocol Last Admin: 03/11/19 07:34 Dose: 3 units Ondansetron HCl (Zofran Odt) 4 mg PO Q6H PRN PRN Reason: nausea, able to take PO Sodium Chloride (Saline Flush) 10 ml FLUSH ASDIRECTED PRN PRN Reason: Keep Vein Open Last Admin: 03/09/19 12:12 Dose: 10 ml Sodium Chloride (Saline Flush) 2.5 ml FLUSH ASDIRECTED PRN PRN Reason: Keep Vein Open Last Admin: 03/09/19 12:12 Dose: 2.5 ml Temazepam (Restoril) 15 mg PO BEDTIME PRN PRN Reason: Sleep Discontinued Medications Haloperidol (Haldol) 5 mg PO ONETIME ONE Stop: 03/09/19 15:04 Last Admin: 03/09/19 15:11 Dose: 5 mg Sodium Chloride (Normal Saline) 1,000 mls @ 999 mls/hr IV .Bolus ONE Stop: 03/09/19 12:59 Last Admin: 03/09/19 12:11 Dose: 999 mls/hr Levofloxacin/Dextrose 500 mg/ (Premix) 100 mls @ 100 mls/hr IV ONETIME ONE Stop: 03/09/19 14:32 Last Admin: 03/09/19 13:47 Dose: 100 mls/hr Sodium Chloride (Normal Saline) 1,000 mls @ 75 mls/hr IV ASDIRECTED TATYANA Last Admin: 03/11/19 06:41 Dose: 75 mls/hr Insulin Aspart (Novolog) 0 unit SUBCUT ACBREAKFASTANDBED TATYANA; Protocol Oxycodone HCl (Oxycodone) 5 mg PO Q4H PRN PRN Reason: Pain (moderate 4-6) - Exam General: Alert, Oriented, Cooperative, No Acute Distress Lungs: Clear to Auscultation, Normal Respiratory Effort Cardiovascular: Regular Rate, Regular Rhythm GI/Abdominal Exam: Normal Bowel Sounds, Soft, Non-Tender, No Organomegaly Extremities: Normal Inspection, Normal Range of Motion, Non-Tender, No Pedal Edema Neurological: No New Focal Deficit Psy/Mental Status: Alert, Normal Affect, Normal Mood - Problem List & Annotations (1) UTI (urinary tract infection) SNOMED Code(s): 11114805 Code(s): N39.0 - URINARY TRACT INFECTION, SITE NOT SPECIFIED Status: Acute Current Visit: Yes Qualifiers: Urinary tract infection type: acute cystitis Hematuria presence: without hematuria Qualified Code(s): N30.00 - Acute cystitis without hematuria (2) Delayed emotional development SNOMED Code(s): 540337351 Code(s): F88 - OTHER DISORDERS OF PSYCHOLOGICAL DEVELOPMENT Status: Chronic Priority: High Current Visit: Yes (3) Diabetes mellitus type 2 in obese SNOMED Code(s): 34399266 Code(s): E11.69 - TYPE 2 DIABETES MELLITUS WITH OTHER SPECIFIED COMPLICATION ; E66.9 - OBESITY, UNSPECIFIED Status: Chronic Priority: High Current Visit: Yes - Problem List Review Problem List Initiated/Reviewed/Updated: Yes - Plan Plan:: This 58 year old male admitted with AMS and UTI 1. UTI: UC returned with E coli, resistant to Ampicillin, continue therapy with Rocephin for now. Voiding well, no concerns. No Leukocytosis. 2. AMS: Resolved once UTI was treated. 3. DM Type 2: Novolog SSI. Holding Metformin and Victozia. BS stable. 4. PMH developmental delays: Hasn't been good with taking medications at home. Family considering placement. VTE prophylaxis: Heparin. Dispo: Pending possible placement. <Karlos Monsalve - Last Filed: 03/11/19 11:56> - General Info Admission Dx/Problem (Free Text): I have seen and examined to patient independently of Jaye Cutler CNP. I have discussed the case for care of this patient with her. I have reviewed and approve of the plan of care as outlined by her. Please see orders. - Patient Data Vitals - Most Recent: Last Vital Signs Temp 36.4 C 03/11/19 07:45 Pulse 78 03/11/19 07:45 Resp 16 03/11/19 07:45 BP 171/87 H 03/11/19 07:45 Pulse Ox 93 L 03/11/19 07:45 I&O - Last 24 Hours: Intake & Output 03/10/19 03/11/19 03/11/19 22:59 06:59 14:59 Intake Total 2489 1959 410 Output Total 0 200 Balance 2489 8909 410 Lab Results Last 24 Hours: Laboratory Results - last 24 hr 03/10/19 03/10/19 03/11/19 Range/Units 12:42 16:42 05:51 Sodium 137 (136-148) mmol/L Potassium 4.1 (3.5-5.1) mmol/L Chloride 104 (98-107) mmol/L Carbon Dioxide 29.6 (21.0-32.0) mmol/L BUN 15 (7.0-18.0) mg/dL Creatinine 0.8 (0.8-1.3) mg/dL Est Cr Clr Drug Dosing 94.10 mL/min Estimated GFR (MDRD) > 60.0 ml/min Glucose 183 H (74-106) mg/dL POC Glucose 217 H 256 H (60-110) mg/dL Calcium 8.6 (8.5-10.1) mg/dL 03/11/19 Range/Units 06:05 Sodium (136-148) mmol/L Potassium (3.5-5.1) mmol/L Chloride (98-107) mmol/L Carbon Dioxide (21.0-32.0) mmol/L BUN (7.0-18.0) mg/dL Creatinine (0.8-1.3) mg/dL Est Cr Clr Drug Dosing mL/min Estimated GFR (MDRD) ml/min Glucose (74-106) mg/dL POC Glucose 174 H (60-110) mg/dL Calcium (8.5-10.1) mg/dL Altaf Results Last 24 Hours: Microbiology 03/09/19 13:25 Urine Culture - Final Urine, Clean Catch Escherichia Coli Med Orders - Current: Current Medications Docusate Sodium (Colace) 100 mg PO BID PRN PRN Reason: Constipation Heparin Sodium (Porcine) (Heparin Sodium) 5,000 units SUBCUT Q8H [facility] Last Admin: 03/11/19 06:03 Dose: 5,000 units Ceftriaxone Sodium/Dextrose 1 (gm/ Premix) 50 mls @ 100 mls/hr IV Q24H [facility] Last Admin: 03/11/19 09:03 Dose: 100 mls/hr Ibuprofen (Motrin) 400 mg PO Q6H PRN PRN Reason: Pain (mild 1-3) Insulin Aspart (Novolog) 0 unit SUBCUT TIDAC [facility]; Protocol Last Admin: 03/11/19 07:34 Dose: 3 units Ondansetron HCl (Zofran Odt) 4 mg PO Q6H PRN PRN Reason: nausea, able to take PO Sodium Chloride (Saline Flush) 10 ml FLUSH ASDIRECTED PRN PRN Reason: Keep Vein Open Last Admin: 03/09/19 12:12 Dose: 10 ml Sodium Chloride (Saline Flush) 2.5 ml FLUSH ASDIRECTED PRN PRN Reason: Keep Vein Open Last Admin: 03/09/19 12:12 Dose: 2.5 ml Temazepam (Restoril) 15 mg PO BEDTIME PRN PRN Reason: Sleep Discontinued Medications Haloperidol (Haldol) 5 mg PO ONETIME ONE Stop: 03/09/19 15:04 Last Admin: 03/09/19 15:11 Dose: 5 mg Sodium Chloride (Normal Saline) 1,000 mls @ 999 mls/hr IV .Bolus ONE Stop: 03/09/19 12:59 Last Admin: 03/09/19 12:11 Dose: 999 mls/hr Levofloxacin/Dextrose 500 mg/ (Premix) 100 mls @ 100 mls/hr IV ONETIME ONE Stop: 03/09/19 14:32 Last Admin: 03/09/19 13:47 Dose: 100 mls/hr Sodium Chloride (Normal Saline) 1,000 mls @ 75 mls/hr IV ASDIRECTED TATYANA Last Admin: 03/11/19 06:41 Dose: 75 mls/hr Insulin Aspart (Novolog) 0 unit SUBCUT ACBREAKFASTANDBED [facility]; Protocol Oxycodone HCl (Oxycodone) 5 mg PO Q4H PRN PRN Reason: Pain (moderate 4-6) - Problem List & Annotations (1) Altered mental status SNOMED Code(s): 908578096 Code(s): R41.82 - ALTERED MENTAL STATUS, UNSPECIFIED Status: Acute Priority: High Current Visit: Yes Qualifiers: Altered mental status type: unspecified Qualified Code(s): R41.82 - Altered mental status, unspecified (2) Delayed emotional development SNOMED Code(s): 117067225 Code(s): F88 - OTHER DISORDERS OF PSYCHOLOGICAL DEVELOPMENT Status: Chronic Priority: High Current Visit: Yes (3) Diabetes mellitus type 2 in obese SNOMED Code(s): 60359364 Code(s): E11.69 - TYPE 2 DIABETES MELLITUS WITH OTHER SPECIFIED COMPLICATION ; E66.9 - OBESITY, UNSPECIFIED Status: Chronic Priority: High Current Visit: Yes (4) Noncompliance SNOMED Code(s): 5220551 Code(s): Z91.19 - PATIENT'S NONCOMPLIANCE W OTH MEDICAL TREATMENT AND REGIMEN Status: Chronic Priority: Medium Current Visit: Yes (5) Total self-care deficit SNOMED Code(s): 52553731 Code(s): R41.89 - OTH SYMPTOMS AND SIGNS W COGNITIVE FUNCTIONS AND AWARENESS Status: Chronic Priority: High Current Visit: Yes
[2019-03-11] MEDS: cefTRIAXone 1 GM in Premix Bag 1 BAG IV SCH (09:03)
[2019-03-11] MEDS ORDERED: Haloperidol 5 MG Tab PO PRN (23:06)
[2019-03-12] MEDS: Heparin Sodium 5,000 Units/ML Vial SUBCUT SCH ×3 (06:01→21:28)
[2019-03-12 06:17] LABS: CHLORIDE,CL 95 mmol/L (98-107); SODIUM,NA 131 mmol/L (136-148)
[2019-03-12] MEDS: Insulin Aspart 100 Units/ML 3 ML Pen SUBCUT SCH ×3 (07:57→16:30)
--- NOTE | 2019-03-12 08:10 | PCM.PN ---
<Jaye Cutler M - Last Filed: 03/12/19 09:33> - General Info Date of Service: 03/12/19 Admission Dx/Problem (Free Text): AMS, UTI Subjective Update: Alert this morning, not as talkative today. No complaints. No pain, no chest pain. Functional Status: Reports: Pain Controlled, Tolerating Diet, Ambulating, Urinating - Review of Systems General: Reports: No Symptoms. Denies: Weakness Pulmonary: Reports: No Symptoms. Denies: Shortness of Breath Cardiovascular: Reports: No Symptoms. Denies: Chest Pain Gastrointestinal: Reports: No Symptoms. Denies: Abdominal Pain, Nausea, Vomiting Genitourinary: Reports: No Symptoms Neurological: Reports: Confusion Psychiatric: Reports: No Symptoms - Patient Data Vitals - Most Recent: Last Vital Signs Temp 97.1 F 03/12/19 07:40 Pulse 129 H 03/12/19 07:40 Resp 16 03/12/19 07:40 BP 189/127 H 03/12/19 07:40 Pulse Ox 95 03/12/19 07:40 Weight - Most Recent: 108.862 kg I&O - Last 24 Hours: Intake & Output 03/11/19 03/12/19 03/12/19 22:59 06:59 14:59 Intake Total 1274 840 120 Output Total 0 Balance 1274 840 120 Lab Results Last 24 Hours: Laboratory Results - last 24 hr 03/11/19 03/11/19 03/11/19 Range/Units 12:12 16:30 21:15 WBC (4.0-11.0) K/uL RBC (4.50-5.90) M/uL Hgb (13.0-17.0) g/dL Hct (38.0-50.0) % MCV (80.0-98.0) fL MCH (27.0-32.0) pg MCHC (31.0-37.0) g/dL RDW Std Deviation (28.0-62.0) fl RDW Coeff of Mariangel (11.0-15.0) % Plt Count (150-400) K/uL MPV (7.40-12.00) fL Neut % (Auto) (48.0-80.0) % Lymph % (Auto) (16.0-40.0) % [place] % (Auto) (0.0-15.0) % Eos % (Auto) (0.0-7.0) % Baso % (Auto) (0.0-1.5) % Neut # (Auto) (1.4-5.7) K/uL Lymph # (Auto) (0.6-2.4) K/uL [place] # (Auto) (0.0-0.8) K/uL Eos # (Auto) (0.0-0.7) K/uL Baso # (Auto) (0.0-0.1) K/uL Nucleated RBC % /100WBC Nucleated RBCs # K/uL Sodium (136-148) mmol/L Potassium (3.5-5.1) mmol/L Chloride (98-107) mmol/L Carbon Dioxide (21.0-32.0) mmol/L BUN (7.0-18.0) mg/dL Creatinine (0.8-1.3) mg/dL Est Cr Clr Drug Dosing mL/min Estimated GFR (MDRD) ml/min Glucose (74-106) mg/dL POC Glucose 159 H 217 H 114 H (60-110) mg/dL Calcium (8.5-10.1) mg/dL 03/12/19 03/12/19 03/12/19 Range/Units 04:54 04:54 06:03 WBC 6.74 (4.0-11.0) K/uL RBC 4.60 (4.50-5.90) M/uL Hgb 14.0 (13.0-17.0) g/dL Hct 42.0 (38.0-50.0) % MCV 91.3 (80.0-98.0) fL MCH 30.4 (27.0-32.0) pg MCHC 33.3 (31.0-37.0) g/dL RDW Std Deviation 44.4 (28.0-62.0) fl RDW Coeff of Mariangel 13 (11.0-15.0) % Plt Count 214 (150-400) K/uL MPV 11.00 (7.40-12.00) fL Neut % (Auto) 76.7 (48.0-80.0) % Lymph % (Auto) 14.7 L (16.0-40.0) % [place] % (Auto) 7.4 (0.0-15.0) % Eos % (Auto) 0.9 (0.0-7.0) % Baso % (Auto) 0.3 (0.0-1.5) % Neut # (Auto) 5.2 (1.4-5.7) K/uL Lymph # (Auto) 1.0 (0.6-2.4) K/uL [place] # (Auto) 0.5 (0.0-0.8) K/uL Eos # (Auto) 0.1 (0.0-0.7) K/uL Baso # (Auto) 0.0 (0.0-0.1) K/uL Nucleated RBC % 0.0 /100WBC Nucleated RBCs # 0 K/uL Sodium 131 L (136-148) mmol/L Potassium 3.5 (3.5-5.1) mmol/L Chloride 95 L (98-107) mmol/L Carbon Dioxide 24.6 (21.0-32.0) mmol/L BUN 13 (7.0-18.0) mg/dL Creatinine 0.8 (0.8-1.3) mg/dL Est Cr Clr Drug Dosing 94.10 mL/min Estimated GFR (MDRD) > 60.0 ml/min Glucose 229 H (74-106) mg/dL POC Glucose 205 H (60-110) mg/dL Calcium 9.4 (8.5-10.1) mg/dL Al[place]f Results Last 24 Hours: Microbiology 03/09/19 13:25 Urine Culture - Final Urine, Clean Catch Escherichia Coli Med Orders - Current: Current Medications Docusate Sodium (Colace) 100 mg PO BID PRN PRN Reason: Constipation Heparin Sodium (Porcine) (Heparin Sodium) 5,000 units SUBCUT Q8H [facility] Last Admin: 03/12/19 06:01 Dose: 5,000 units Ceftriaxone Sodium/Dextrose 1 (gm/ Premix) 50 mls @ 100 mls/hr IV Q24H [facility] Last Admin: 03/11/19 09:03 Dose: 100 mls/hr Ibuprofen (Motrin) 400 mg PO Q6H PRN PRN Reason: Pain (mild 1-3) Insulin Aspart (Novolog) 0 unit SUBCUT TIDAC [facility]; Protocol Last Admin: 03/12/19 07:57 Dose: 6 units Losartan Potassium (Cozaar) 100 mg PO DAILY [facility] Ondansetron HCl (Zofran Odt) 4 mg PO Q6H PRN PRN Reason: nausea, able to take PO Sodium Chloride (Saline Flush) 10 ml FLUSH ASDIRECTED PRN PRN Reason: Keep Vein Open Last Admin: 03/09/19 12:12 Dose: 10 ml Sodium Chloride (Saline Flush) 2.5 ml FLUSH ASDIRECTED PRN PRN Reason: Keep Vein Open Last Admin: 03/09/19 12:12 Dose: 2.5 ml Temazepam (Restoril) 15 mg PO BEDTIME PRN PRN Reason: Sleep Discontinued Medications Haloperidol (Haldol) 5 mg PO ONETIME ONE Stop: 03/09/19 15:04 Last Admin: 03/09/19 15:11 Dose: 5 mg Haloperidol (Haldol) 5 mg PO Q6H PRN PRN Reason: Agitation Last Admin: 03/11/19 23:38 Dose: 5 mg Sodium Chloride (Normal Saline) 1,000 mls @ 999 mls/hr IV .Bolus ONE Stop: 03/09/19 12:59 Last Admin: 03/09/19 12:11 Dose: 999 mls/hr Levofloxacin/Dextrose 500 mg/ (Premix) 100 mls @ 100 mls/hr IV ONETIME ONE Stop: 03/09/19 14:32 Last Admin: 03/09/19 13:47 Dose: 100 mls/hr Sodium Chloride (Normal Saline) 1,000 mls @ 75 mls/hr IV ASDIRECTED [facility] Last Admin: 03/11/19 06:41 Dose: 75 mls/hr Insulin Aspart (Novolog) 0 unit SUBCUT ACBREAKFASTANDBED [facility]; Protocol Oxycodone HCl (Oxycodone) 5 mg PO Q4H PRN PRN Reason: Pain (moderate 4-6) - Exam General: Alert, Cooperative, No Acute Distress. No: Oriented Lungs: Clear to Auscultation, Normal Respiratory Effort Cardiovascular: Regular Rate, Regular Rhythm GI/Abdominal Exam: Normal Bowel Sounds, Soft, Non-Tender Extremities: Normal Inspection, Normal Range of Motion, Non-Tender, Pedal Edema (+2 pitting edema to BLE) Wound/Incisions: Other (abrasion to L elbow, scabbing intact, no s/s infection) Neurological: No New Focal Deficit Psy/Mental Status: Alert, Anxious (at times becomes anxious with staff) - Problem List & Annotations (1) UTI (urinary tract infection) SNOMED Code(s): 89990350 Code(s): N39.0 - URINARY TRACT INFECTION, SITE NOT SPECIFIED Status: Acute Current Visit: Yes Qualifiers: Urinary tract infection type: acute cystitis Hematuria presence: without hematuria Qualified Code(s): N30.00 - Acute cystitis without hematuria (2) Delayed emotional development SNOMED Code(s): 836170767 Code(s): F88 - OTHER DISORDERS OF PSYCHOLOGICAL DEVELOPMENT Status: Chronic Priority: High Current Visit: Yes (3) Diabetes mellitus type 2 in obese SNOMED Code(s): 29865409 Code(s): E11.69 - TYPE 2 DIABETES MELLITUS WITH OTHER SPECIFIED COMPLICATION ; E66.9 - OBESITY, UNSPECIFIED Status: Chronic Priority: High Current Visit: Yes - Problem List Review Problem List Initiated/Reviewed/Updated: Yes - My Orders Last 24 Hours: My Active Orders 03/13/19 05:11 BMP [BASIC METABOLIC PANEL,BMP] [CHEM] AM CBC WITH AUTO DIFF [HEME] AM - Plan Plan:: This 58 year old male admitted with AMS and UTI 1. UTI: IV out, will not restart. Change Rocephin to Cefdinir. Voiding well, no concerns. No Leukocytosis. 2. AMS: Alert this morning, did receive Haldol last night, so seems more withdrawn today, not as talkative. Will monitor. Haldol discontinued. 3. DM Type 2: Novolog SSI. Holding Metformin and Victozia. BS stable. 4. PMH developmental delays: Hasn't been good with taking medications at home. Family considering placement in [place] [facility] prophylaxis: Heparin. Dispo: Pending placement. <Karlos Monsalve - Last Filed: 03/12/19 12:36> - General Info Admission Dx/Problem (Free Text): I have seen and examined to patient independently of Jaye Cutler CNP. I have discussed the case for care of this patient with her. I have reviewed and approve of the plan of care as outlined by her. Please see orders. Awaiting placement. - Patient Data Vitals - Most Recent: Last Vital Signs Temp 36.1 C 03/12/19 11:40 Pulse 113 H 03/12/19 11:40 Resp 20 03/12/19 11:40 BP 155/99 H 03/12/19 11:40 Pulse Ox 95 03/12/19 11:40 I&O - Last 24 Hours: Intake & Output 03/11/19 03/12/19 03/12/19 22:59 06:59 14:59 Intake Total 1274 840 360 Output Total 0 Balance 1274 840 360 Lab Results Last 24 Hours: Laboratory Results - last 24 hr 03/11/19 03/11/19 03/12/19 Range/Units 16:30 21:15 04:54 WBC 6.74 (4.0-11.0) K/uL RBC 4.60 (4.50-5.90) M/uL Hgb 14.0 (13.0-17.0) g/dL Hct 42.0 (38.0-50.0) % MCV 91.3 (80.0-98.0) fL MCH 30.4 (27.0-32.0) pg MCHC 33.3 (31.0-37.0) g/dL RDW Std Deviation 44.4 (28.0-62.0) fl RDW Coeff of Mariangel 13 (11.0-15.0) % Plt Count 214 (150-400) K/uL MPV 11.00 (7.40-12.00) fL Neut % (Auto) 76.7 (48.0-80.0) % Lymph % (Auto) 14.7 L (16.0-40.0) % [place] % (Auto) 7.4 (0.0-15.0) % Eos % (Auto) 0.9 (0.0-7.0) % Baso % (Auto) 0.3 (0.0-1.5) % Neut # (Auto) 5.2 (1.4-5.7) K/uL Lymph # (Auto) 1.0 (0.6-2.4) K/uL [place] # (Auto) 0.5 (0.0-0.8) K/uL Eos # (Auto) 0.1 (0.0-0.7) K/uL Baso # (Auto) 0.0 (0.0-0.1) K/uL Nucleated RBC % 0.0 /100WBC Nucleated RBCs # 0 K/uL Sodium (136-148) mmol/L Potassium (3.5-5.1) mmol/L Chloride (98-107) mmol/L Carbon Dioxide (21.0-32.0) mmol/L BUN (7.0-18.0) mg/dL Creatinine (0.8-1.3) mg/dL Est Cr Clr Drug Dosing mL/min Estimated GFR (MDRD) ml/min Glucose (74-106) mg/dL POC Glucose 217 H 114 H (60-110) mg/dL Calcium (8.5-10.1) mg/dL 03/12/19 03/12/19 03/12/19 Range/Units 04:54 06:03 11:29 WBC (4.0-11.0) K/uL RBC (4.50-5.90) M/uL Hgb (13.0-17.0) g/dL Hct (38.0-50.0) % MCV (80.0-98.0) fL MCH (27.0-32.0) pg MCHC (31.0-37.0) g/dL RDW Std Deviation (28.0-62.0) fl RDW Coeff of Mariangel (11.0-15.0) % Plt Count (150-400) K/uL MPV (7.40-12.00) fL Neut % (Auto) (48.0-80.0) % Lymph % (Auto) (16.0-40.0) % [place] % (Auto) (0.0-15.0) % Eos % (Auto) (0.0-7.0) % Baso % (Auto) (0.0-1.5) % Neut # (Auto) (1.4-5.7) K/uL Lymph # (Auto) (0.6-2.4) K/uL [place] # (Auto) (0.0-0.8) K/uL Eos # (Auto) (0.0-0.7) K/uL Baso # (Auto) (0.0-0.1) K/uL Nucleated RBC % /100WBC Nucleated RBCs # K/uL Sodium 131 L (136-148) mmol/L Potassium 3.5 (3.5-5.1) mmol/L Chloride 95 L (98-107) mmol/L Carbon Dioxide 24.6 (21.0-32.0) mmol/L BUN 13 (7.0-18.0) mg/dL Creatinine 0.8 (0.8-1.3) mg/dL Est Cr Clr Drug Dosing 94.10 mL/min Estimated GFR (MDRD) > 60.0 ml/min Glucose 229 H (74-106) mg/dL POC Glucose 205 H 219 H (60-110) mg/dL Calcium 9.4 (8.5-10.1) mg/dL [place]f Results Last 24 Hours: Microbiology 03/09/19 13:25 Urine Culture - Final Urine, Clean Catch Escherichia Coli Med Orders - Current: Current Medications Cefdinir (Omnicef) 300 mg PO BID [facility] Last Admin: 03/12/19 08:38 Dose: 300 mg Docusate Sodium (Colace) 100 mg PO BID PRN PRN Reason: Constipation Heparin Sodium (Porcine) (Heparin Sodium) 5,000 units SUBCUT Q8H [facility] Last Admin: 03/12/19 06:01 Dose: 5,000 units Ibuprofen (Motrin) 400 mg PO Q6H PRN PRN Reason: Pain (mild 1-3) Indapamide (Indapamide) 2.5 mg PO DAILY [facility] Last Admin: 03/12/19 08:38 Dose: 2.5 mg Insulin Aspart (Novolog) 0 unit SUBCUT TIDAC [facility]; Protocol Last Admin: 03/12/19 11:45 Dose: 6 units Losartan Potassium (Cozaar) 100 mg PO DAILY [facility] Last Admin: 03/12/19 08:37 Dose: 100 mg Ondansetron HCl (Zofran Odt) 4 mg PO Q6H PRN PRN Reason: nausea, able to take PO Sodium Chloride (Saline Flush) 10 ml FLUSH ASDIRECTED PRN PRN Reason: Keep Vein Open Last Admin: 03/09/19 12:12 Dose: 10 ml Sodium Chloride (Saline Flush) 2.5 ml FLUSH ASDIRECTED PRN PRN Reason: Keep Vein Open Last Admin: 03/09/19 12:12 Dose: 2.5 ml Temazepam (Restoril) 15 mg PO BEDTIME PRN PRN Reason: Sleep Discontinued Medications Haloperidol (Haldol) 5 mg PO ONETIME ONE Stop: 03/09/19 15:04 Last Admin: 03/09/19 15:11 Dose: 5 mg Haloperidol (Haldol) 5 mg PO Q6H PRN PRN Reason: Agitation Last Admin: 03/11/19 23:38 Dose: 5 mg Sodium Chloride (Normal Saline) 1,000 mls @ 999 mls/hr IV .Bolus ONE Stop: 03/09/19 12:59 Last Admin: 03/09/19 12:11 Dose: 999 mls/hr Levofloxacin/Dextrose 500 mg/ (Premix) 100 mls @ 100 mls/hr IV ONETIME ONE Stop: 03/09/19 14:32 Last Admin: 03/09/19 13:47 Dose: 100 mls/hr Sodium Chloride (Normal Saline) 1,000 mls @ 75 mls/hr IV ASDIRECTED [facility] Last Admin: 03/11/19 06:41 Dose: 75 mls/hr Ceftriaxone Sodium/Dextrose 1 (gm/ Premix) 50 mls @ 100 mls/hr IV Q24H [facility] Last Admin: 03/11/19 09:03 Dose: 100 mls/hr Insulin Aspart (Novolog) 0 unit SUBCUT ACBREAKFASTANDBED [facility]; Protocol Oxycodone HCl (Oxycodone) 5 mg PO Q4H PRN PRN Reason: Pain (moderate 4-6) - Problem List & Annotations (1) Altered mental status SNOMED Code(s): 409222884 Code(s): R41.82 - ALTERED MENTAL STATUS, UNSPECIFIED Status: Acute Priority: High Current Visit: Yes Qualifiers: Altered mental status type: unspecified Qualified Code(s): R41.82 - Altered mental status, unspecified (2) Delayed emotional development SNOMED Code(s): 839370463 Code(s): F88 - OTHER DISORDERS OF PSYCHOLOGICAL DEVELOPMENT Status: Chronic Priority: High Current Visit: Yes (3) Diabetes mellitus type 2 in obese SNOMED Code(s): 32345107 Code(s): E11.69 - TYPE 2 DIABETES MELLITUS WITH OTHER SPECIFIED COMPLICATION ; E66.9 - OBESITY, UNSPECIFIED Status: Chronic Priority: High Current Visit: Yes (4) Noncompliance SNOMED Code(s): 2959132 Code(s): Z91.19 - PATIENT'S NONCOMPLIANCE W OTH MEDICAL TREATMENT AND REGIMEN Status: Chronic Priority: Medium Current Visit: Yes (5) Total self-care deficit SNOMED Code(s): 43214061 Code(s): R41.89 - OTH SYMPTOMS AND SIGNS W COGNITIVE FUNCTIONS AND AWARENESS Status: Chronic Priority: High Current Visit: Yes - My Orders Last 24 Hours: My Active Orders 03/12/19 07:36 Communication Order [RC] PER UNIT ROUTINE
[2019-03-12] MEDS: Losartan 50 MG Tab PO SCH (08:37)
[2019-03-12] MEDS: Cefdinir 300 MG Cap PO SCH ×2 (08:38→21:29)
[2019-03-12] MEDS: Temazepam 15 MG Cap PO PRN (21:29)
[2019-03-13] MEDS: Heparin Sodium 5,000 Units/ML Vial SUBCUT SCH ×3 (05:49→21:19)
[2019-03-13 06:01] LABS: CHLORIDE,CL 96 mmol/L (98-107); SODIUM,NA 134 mmol/L (136-148)
[2019-03-13] MEDS: Insulin Aspart 100 Units/ML 3 ML Pen SUBCUT SCH ×3 (07:46→16:22)
--- NOTE | 2019-03-13 08:23 | PCM.PN ---
<Jaye Cutler M - Last Filed: 03/13/19 09:45> - General Info Date of Service: 03/13/19 Admission Dx/Problem (Free Text): AMS, UTI Subjective Update: Doing well this morning. He is alert and talkative. No complaints of pain. No chest pain or SOB. Functional Status: Reports: Pain Controlled, Tolerating Diet, Ambulating, Urinating - Review of Systems General: Reports: No Symptoms. Denies: Weakness, Fatigue, Malaise Pulmonary: Reports: No Symptoms. Denies: Shortness of Breath Cardiovascular: Reports: No Symptoms. Denies: Chest Pain, Dyspnea on Exertion, Edema Gastrointestinal: Reports: No Symptoms. Denies: Abdominal Pain, Nausea, Vomiting Genitourinary: Reports: No Symptoms Musculoskeletal: Reports: No Symptoms Skin: Reports: No Symptoms Neurological: Reports: No Symptoms Psychiatric: Reports: No Symptoms. Denies: Confusion - Patient Data Vitals - Most Recent: Last Vital Signs Temp 98.2 F 03/13/19 07:30 Pulse 110 H 03/13/19 07:30 Resp 16 03/13/19 07:30 BP 154/99 H 03/13/19 07:30 Pulse Ox 95 03/13/19 07:30 Weight - Most Recent: 108.862 kg I&O - Last 24 Hours: Intake & Output 03/12/19 03/13/19 03/13/19 22:59 06:59 14:59 Intake Total 960 400 Output Total 0 Balance 960 400 Lab Results Last 24 Hours: Laboratory Results - last 24 hr 03/10/19 03/12/19 03/12/19 Range/Units 08:35 11:29 16:04 WBC (4.0-11.0) K/uL RBC (4.50-5.90) M/uL Hgb (13.0-17.0) g/dL Hct (38.0-50.0) % MCV (80.0-98.0) fL MCH (27.0-32.0) pg MCHC (31.0-37.0) g/dL RDW Std Deviation (28.0-62.0) fl RDW Coeff of Mariangel (11.0-15.0) % Plt Count (150-400) K/uL MPV (7.40-12.00) fL Neut % (Auto) (48.0-80.0) % Lymph % (Auto) (16.0-40.0) % Reeves % (Auto) (0.0-15.0) % Eos % (Auto) (0.0-7.0) % Baso % (Auto) (0.0-1.5) % Neut # (Auto) (1.4-5.7) K/uL Lymph # (Auto) (0.6-2.4) K/uL Reeves # (Auto) (0.0-0.8) K/uL Eos # (Auto) (0.0-0.7) K/uL Baso # (Auto) (0.0-0.1) K/uL Nucleated RBC % /100WBC Nucleated RBCs # K/uL Sodium (136-148) mmol/L Potassium (3.5-5.1) mmol/L Chloride (98-107) mmol/L Carbon Dioxide (21.0-32.0) mmol/L BUN (7.0-18.0) mg/dL Creatinine (0.8-1.3) mg/dL Est Cr Clr Drug Dosing mL/min Estimated GFR (MDRD) ml/min Glucose (74-106) mg/dL POC Glucose 219 H 232 H (60-110) mg/dL Hemoglobin A1c 8.0 H (4.5-6.2) % Calcium (8.5-10.1) mg/dL 03/12/19 03/13/19 03/13/19 Range/Units 21:34 04:26 04:26 WBC 6.81 (4.0-11.0) K/uL RBC 4.64 (4.50-5.90) M/uL Hgb 14.0 (13.0-17.0) g/dL Hct 43.2 (38.0-50.0) % MCV 93.1 (80.0-98.0) fL MCH 30.2 (27.0-32.0) pg MCHC 32.4 (31.0-37.0) g/dL RDW Std Deviation 47.2 (28.0-62.0) fl RDW Coeff of Mariangel 14 (11.0-15.0) % Plt Count 245 (150-400) K/uL MPV 10.60 (7.40-12.00) fL Neut % (Auto) 62.4 (48.0-80.0) % Lymph % (Auto) 26.4 (16.0-40.0) % Reeves % (Auto) 9.0 (0.0-15.0) % Eos % (Auto) 1.8 (0.0-7.0) % Baso % (Auto) 0.4 (0.0-1.5) % Neut # (Auto) 4.3 (1.4-5.7) K/uL Lymph # (Auto) 1.8 (0.6-2.4) K/uL Reeves # (Auto) 0.6 (0.0-0.8) K/uL Eos # (Auto) 0.1 (0.0-0.7) K/uL Baso # (Auto) 0.0 (0.0-0.1) K/uL Nucleated RBC % 0.0 /100WBC Nucleated RBCs # 0 K/uL Sodium 134 L (136-148) mmol/L Potassium 3.7 (3.5-5.1) mmol/L Chloride 96 L (98-107) mmol/L Carbon Dioxide 28.2 (21.0-32.0) mmol/L BUN 17 (7.0-18.0) mg/dL Creatinine 0.9 (0.8-1.3) mg/dL Est Cr Clr Drug Dosing 83.65 mL/min Estimated GFR (MDRD) > 60.0 ml/min Glucose 192 H (74-106) mg/dL POC Glucose 183 H (60-110) mg/dL Hemoglobin A1c (4.5-6.2) % Calcium 9.5 (8.5-10.1) mg/dL 03/13/19 Range/Units 05:55 WBC (4.0-11.0) K/uL RBC (4.50-5.90) M/uL Hgb (13.0-17.0) g/dL Hct (38.0-50.0) % MCV (80.0-98.0) fL MCH (27.0-32.0) pg MCHC (31.0-37.0) g/dL RDW Std Deviation (28.0-62.0) fl RDW Coeff of Mariangel (11.0-15.0) % Plt Count (150-400) K/uL MPV (7.40-12.00) fL Neut % (Auto) (48.0-80.0) % Lymph % (Auto) (16.0-40.0) % Reeves % (Auto) (0.0-15.0) % Eos % (Auto) (0.0-7.0) % Baso % (Auto) (0.0-1.5) % Neut # (Auto) (1.4-5.7) K/uL Lymph # (Auto) (0.6-2.4) K/uL Reeves # (Auto) (0.0-0.8) K/uL Eos # (Auto) (0.0-0.7) K/uL Baso # (Auto) (0.0-0.1) K/uL Nucleated RBC % /100WBC Nucleated RBCs # K/uL Sodium (136-148) mmol/L Potassium (3.5-5.1) mmol/L Chloride (98-107) mmol/L Carbon Dioxide (21.0-32.0) mmol/L BUN (7.0-18.0) mg/dL Creatinine (0.8-1.3) mg/dL Est Cr Clr Drug Dosing mL/min Estimated GFR (MDRD) ml/min Glucose (74-106) mg/dL POC Glucose 203 H (60-110) mg/dL Hemoglobin A1c (4.5-6.2) % Calcium (8.5-10.1) mg/dL Med Orders - Current: Current Medications Cefdinir (Omnicef) 300 mg PO BID [facility] Last Admin: 03/12/19 21:29 Dose: 300 mg Docusate Sodium (Colace) 100 mg PO BID PRN PRN Reason: Constipation Heparin Sodium (Porcine) (Heparin Sodium) 5,000 units SUBCUT Q8H [facility] Last Admin: 03/13/19 05:49 Dose: 5,000 units Ibuprofen (Motrin) 400 mg PO Q6H PRN PRN Reason: Pain (mild 1-3) Indapamide (Indapamide) 2.5 mg PO DAILY [facility] Last Admin: 03/12/19 08:38 Dose: 2.5 mg Insulin Aspart (Novolog) 0 unit SUBCUT TIDAC [facility]; Protocol Last Admin: 03/13/19 07:46 Dose: 6 units Losartan Potassium (Cozaar) 100 mg PO DAILY [facility] Last Admin: 03/12/19 08:37 Dose: 100 mg Ondansetron HCl (Zofran Odt) 4 mg PO Q6H PRN PRN Reason: nausea, able to take PO Sodium Chloride (Saline Flush) 10 ml FLUSH ASDIRECTED PRN PRN Reason: Keep Vein Open Last Admin: 03/09/19 12:12 Dose: 10 ml Sodium Chloride (Saline Flush) 2.5 ml FLUSH ASDIRECTED PRN PRN Reason: Keep Vein Open Last Admin: 03/09/19 12:12 Dose: 2.5 ml Temazepam (Restoril) 15 mg PO BEDTIME PRN PRN Reason: Sleep Last Admin: 03/12/19 21:29 Dose: 15 mg Discontinued Medications Haloperidol (Haldol) 5 mg PO ONETIME ONE Stop: 03/09/19 15:04 Last Admin: 03/09/19 15:11 Dose: 5 mg Haloperidol (Haldol) 5 mg PO Q6H PRN PRN Reason: Agitation Last Admin: 03/11/19 23:38 Dose: 5 mg Sodium Chloride (Normal Saline) 1,000 mls @ 999 mls/hr IV .Bolus ONE Stop: 03/09/19 12:59 Last Admin: 03/09/19 12:11 Dose: 999 mls/hr Levofloxacin/Dextrose 500 mg/ (Premix) 100 mls @ 100 mls/hr IV ONETIME ONE Stop: 03/09/19 14:32 Last Admin: 03/09/19 13:47 Dose: 100 mls/hr Sodium Chloride (Normal Saline) 1,000 mls @ 75 mls/hr IV ASDIRECTED [facility] Last Admin: 03/11/19 06:41 Dose: 75 mls/hr Ceftriaxone Sodium/Dextrose 1 (gm/ Premix) 50 mls @ 100 mls/hr IV Q24H [facility] Last Admin: 03/11/19 09:03 Dose: 100 mls/hr Insulin Aspart (Novolog) 0 unit SUBCUT ACBREAKFASTANDBED [facility]; Protocol Oxycodone HCl (Oxycodone) 5 mg PO Q4H PRN PRN Reason: Pain (moderate 4-6) - Exam General: Alert, Oriented, Cooperative, No Acute Distress Lungs: Clear to Auscultation, Normal Respiratory Effort Cardiovascular: Regular Rate, Regular Rhythm GI/Abdominal Exam: Normal Bowel Sounds, Soft, Non-Tender, No Mass Extremities: Normal Inspection, Normal Range of Motion, Non-Tender, Pedal Edema (+2 non pitting edema BLE) Neurological: No New Focal Deficit Psy/Mental Status: Alert, Normal Affect, Normal Mood - Problem List & Annotations (1) UTI (urinary tract infection) SNOMED Code(s): 70517761 Code(s): N39.0 - URINARY TRACT INFECTION, SITE NOT SPECIFIED Status: Acute Current Visit: Yes Qualifiers: Urinary tract infection type: acute cystitis Hematuria presence: without hematuria Qualified Code(s): N30.00 - Acute cystitis without hematuria (2) Delayed emotional development SNOMED Code(s): 609963518 Code(s): F88 - OTHER DISORDERS OF PSYCHOLOGICAL DEVELOPMENT Status: Chronic Priority: High Current Visit: Yes (3) Diabetes mellitus type 2 in obese SNOMED Code(s): 10561326 Code(s): E11.69 - TYPE 2 DIABETES MELLITUS WITH OTHER SPECIFIED COMPLICATION ; E66.9 - OBESITY, UNSPECIFIED Status: Chronic Priority: High Current Visit: Yes - Problem List Review Problem List Initiated/Reviewed/Updated: Yes - My Orders Last 24 Hours: My Active Orders 03/12/19 09:00 Cefdinir [Omnicef] 300 mg PO BID Indapamide 2.5 mg PO DAILY - Plan Plan:: This 58 year old male admitted with AMS and UTI 1. UTI: Continue Cefdinir. Voiding well, no concerns. No Leukocytosis. 2. AMS: Resolved. Very alert this morning, oriented x 3. No longer needing sitter this morning. 3. DM Type 2: Novolog SSI. Holding Metformin and Victozia. BS stable. 4. PMH developmental delays: Hasn't been good with taking medications at home. Family considering placement in [place] VTE prophylaxis: Heparin. Dispo: Pending placement. <Karlos Monsalve - Last Filed: 03/13/19 10:21> - General Info Admission Dx/Problem (Free Text): I have seen and examined to patient independently of Jaye Cutler CNP. I have discussed the case for care of this patient with her. I have reviewed and approve of the plan of care as outlined by her. Please see orders. Awaiting placement. Pending placement. - Patient Data Vitals - Most Recent: Last Vital Signs Temp 36.8 C 03/13/19 07:30 Pulse 110 H 03/13/19 07:30 Resp 16 03/13/19 07:30 BP 154/99 H 03/13/19 09:24 Pulse Ox 95 03/13/19 07:30 I&O - Last 24 Hours: Intake & Output 03/12/19 03/13/19 03/13/19 22:59 06:59 14:59 Intake Total 960 400 360 Output Total 0 Balance 960 400 360 Lab Results Last 24 Hours: Laboratory Results - last 24 hr 03/10/19 03/12/19 03/12/19 Range/Units 08:35 11:29 16:04 WBC (4.0-11.0) K/uL RBC (4.50-5.90) M/uL Hgb (13.0-17.0) g/dL Hct (38.0-50.0) % MCV (80.0-98.0) fL MCH (27.0-32.0) pg MCHC (31.0-37.0) g/dL RDW Std Deviation (28.0-62.0) fl RDW Coeff of Mariangel (11.0-15.0) % Plt Count (150-400) K/uL MPV (7.40-12.00) fL Neut % (Auto) (48.0-80.0) % Lymph % (Auto) (16.0-40.0) % Reeves % (Auto) (0.0-15.0) % Eos % (Auto) (0.0-7.0) % Baso % (Auto) (0.0-1.5) % Neut # (Auto) (1.4-5.7) K/uL Lymph # (Auto) (0.6-2.4) K/uL Reeves # (Auto) (0.0-0.8) K/uL Eos # (Auto) (0.0-0.7) K/uL Baso # (Auto) (0.0-0.1) K/uL Nucleated RBC % /100WBC Nucleated RBCs # K/uL Sodium (136-148) mmol/L Potassium (3.5-5.1) mmol/L Chloride (98-107) mmol/L Carbon Dioxide (21.0-32.0) mmol/L BUN (7.0-18.0) mg/dL Creatinine (0.8-1.3) mg/dL Est Cr Clr Drug Dosing mL/min Estimated GFR (MDRD) ml/min Glucose (74-106) mg/dL POC Glucose 219 H 232 H (60-110) mg/dL Hemoglobin A1c 8.0 H (4.5-6.2) % Calcium (8.5-10.1) mg/dL 03/12/19 03/13/19 03/13/19 Range/Units 21:34 04:26 04:26 WBC 6.81 (4.0-11.0) K/uL RBC 4.64 (4.50-5.90) M/uL Hgb 14.0 (13.0-17.0) g/dL Hct 43.2 (38.0-50.0) % MCV 93.1 (80.0-98.0) fL MCH 30.2 (27.0-32.0) pg MCHC 32.4 (31.0-37.0) g/dL RDW Std Deviation 47.2 (28.0-62.0) fl RDW Coeff of Mariangel 14 (11.0-15.0) % Plt Count 245 (150-400) K/uL MPV 10.60 (7.40-12.00) fL Neut % (Auto) 62.4 (48.0-80.0) % Lymph % (Auto) 26.4 (16.0-40.0) % Reeves % (Auto) 9.0 (0.0-15.0) % Eos % (Auto) 1.8 (0.0-7.0) % Baso % (Auto) 0.4 (0.0-1.5) % Neut # (Auto) 4.3 (1.4-5.7) K/uL Lymph # (Auto) 1.8 (0.6-2.4) K/uL Reeves # (Auto) 0.6 (0.0-0.8) K/uL Eos # (Auto) 0.1 (0.0-0.7) K/uL Baso # (Auto) 0.0 (0.0-0.1) K/uL Nucleated RBC % 0.0 /100WBC Nucleated RBCs # 0 K/uL Sodium 134 L (136-148) mmol/L Potassium 3.7 (3.5-5.1) mmol/L Chloride 96 L (98-107) mmol/L Carbon Dioxide 28.2 (21.0-32.0) mmol/L BUN 17 (7.0-18.0) mg/dL Creatinine 0.9 (0.8-1.3) mg/dL Est Cr Clr Drug Dosing 83.65 mL/min Estimated GFR (MDRD) > 60.0 ml/min Glucose 192 H (74-106) mg/dL POC Glucose 183 H (60-110) mg/dL Hemoglobin A1c (4.5-6.2) % Calcium 9.5 (8.5-10.1) mg/dL 03/13/19 Range/Units 05:55 WBC (4.0-11.0) K/uL RBC (4.50-5.90) M/uL Hgb (13.0-17.0) g/dL Hct (38.0-50.0) % MCV (80.0-98.0) fL MCH (27.0-32.0) pg MCHC (31.0-37.0) g/dL RDW Std Deviation (28.0-62.0) fl RDW Coeff of Mariangel (11.0-15.0) % Plt Count (150-400) K/uL MPV (7.40-12.00) fL Neut % (Auto) (48.0-80.0) % Lymph % (Auto) (16.0-40.0) % Reeves % (Auto) (0.0-15.0) % Eos % (Auto) (0.0-7.0) % Baso % (Auto) (0.0-1.5) % Neut # (Auto) (1.4-5.7) K/uL Lymph # (Auto) (0.6-2.4) K/uL Reeves # (Auto) (0.0-0.8) K/uL Eos # (Auto) (0.0-0.7) K/uL Baso # (Auto) (0.0-0.1) K/uL Nucleated RBC % /100WBC Nucleated RBCs # K/uL Sodium (136-148) mmol/L Potassium (3.5-5.1) mmol/L Chloride (98-107) mmol/L Carbon Dioxide (21.0-32.0) mmol/L BUN (7.0-18.0) mg/dL Creatinine (0.8-1.3) mg/dL Est Cr Clr Drug Dosing mL/min Estimated GFR (MDRD) ml/min Glucose (74-106) mg/dL POC Glucose 203 H (60-110) mg/dL Hemoglobin A1c (4.5-6.2) % Calcium (8.5-10.1) mg/dL Med Orders - Current: Current Medications Cefdinir (Omnicef) 300 mg PO BID [facility] Last Admin: 03/13/19 09:25 Dose: 300 mg Docusate Sodium (Colace) 100 mg PO BID PRN PRN Reason: Constipation Heparin Sodium (Porcine) (Heparin Sodium) 5,000 units SUBCUT Q8H [facility] Last Admin: 03/13/19 05:49 Dose: 5,000 units Ibuprofen (Motrin) 400 mg PO Q6H PRN PRN Reason: Pain (mild 1-3) Indapamide (Indapamide) 2.5 mg PO DAILY [facility] Last Admin: 03/13/19 09:23 Dose: 2.5 mg Insulin Aspart (Novolog) 0 unit SUBCUT TIDAC [facility]; Protocol Last Admin: 03/13/19 07:46 Dose: 6 units Losartan Potassium (Cozaar) 100 mg PO DAILY [facility] Last Admin: 03/13/19 09:24 Dose: 100 mg Ondansetron HCl (Zofran Odt) 4 mg PO Q6H PRN PRN Reason: nausea, able to take PO Sodium Chloride (Saline Flush) 10 ml FLUSH ASDIRECTED PRN PRN Reason: Keep Vein Open Last Admin: 03/09/19 12:12 Dose: 10 ml Sodium Chloride (Saline Flush) 2.5 ml FLUSH ASDIRECTED PRN PRN Reason: Keep Vein Open Last Admin: 03/09/19 12:12 Dose: 2.5 ml Temazepam (Restoril) 15 mg PO BEDTIME PRN PRN Reason: Sleep Last Admin: 03/12/19 21:29 Dose: 15 mg Discontinued Medications Haloperidol (Haldol) 5 mg PO ONETIME ONE Stop: 03/09/19 15:04 Last Admin: 03/09/19 15:11 Dose: 5 mg Haloperidol (Haldol) 5 mg PO Q6H PRN PRN Reason: Agitation Last Admin: 03/11/19 23:38 Dose: 5 mg Sodium Chloride (Normal Saline) 1,000 mls @ 999 mls/hr IV .Bolus ONE Stop: 03/09/19 12:59 Last Admin: 03/09/19 12:11 Dose: 999 mls/hr Levofloxacin/Dextrose 500 mg/ (Premix) 100 mls @ 100 mls/hr IV ONETIME ONE Stop: 03/09/19 14:32 Last Admin: 03/09/19 13:47 Dose: 100 mls/hr Sodium Chloride (Normal Saline) 1,000 mls @ 75 mls/hr IV ASDIRECTED [facility] Last Admin: 03/11/19 06:41 Dose: 75 mls/hr Ceftriaxone Sodium/Dextrose 1 (gm/ Premix) 50 mls @ 100 mls/hr IV Q24H [facility] Last Admin: 03/11/19 09:03 Dose: 100 mls/hr Insulin Aspart (Novolog) 0 unit SUBCUT ACBREAKFASTANDBED [facility]; Protocol Oxycodone HCl (Oxycodone) 5 mg PO Q4H PRN PRN Reason: Pain (moderate 4-6) - Problem List & Annotations (1) Altered mental status SNOMED Code(s): 464802026 Code(s): R41.82 - ALTERED MENTAL STATUS, UNSPECIFIED Status: Acute Priority: High Current Visit: Yes Qualifiers: Altered mental status type: unspecified Qualified Code(s): R41.82 - Altered mental status, unspecified (2) Delayed emotional development SNOMED Code(s): 504927868 Code(s): F88 - OTHER DISORDERS OF PSYCHOLOGICAL DEVELOPMENT Status: Chronic Priority: High Current Visit: Yes (3) Diabetes mellitus type 2 in obese SNOMED Code(s): 16142254 Code(s): E11.69 - TYPE 2 DIABETES MELLITUS WITH OTHER SPECIFIED COMPLICATION ; E66.9 - OBESITY, UNSPECIFIED Status: Chronic Priority: High Current Visit: Yes (4) Noncompliance SNOMED Code(s): 9825793 Code(s): Z91.19 - PATIENT'S NONCOMPLIANCE W OTH MEDICAL TREATMENT AND REGIMEN Status: Chronic Priority: Medium Current Visit: Yes (5) Total self-care deficit SNOMED Code(s): 64402076 Code(s): R41.89 - OTH SYMPTOMS AND SIGNS W COGNITIVE FUNCTIONS AND AWARENESS Status: Chronic Priority: High Current Visit: Yes
[2019-03-13] MEDS: Losartan 50 MG Tab PO SCH (09:24)
[2019-03-13] MEDS: Cefdinir 300 MG Cap PO SCH ×2 (09:25→21:06)
[2019-03-13] MEDS: Temazepam 15 MG Cap PO PRN (21:06)
[2019-03-14] MEDS: Heparin Sodium 5,000 Units/ML Vial SUBCUT SCH ×3 (05:25→22:05)
[2019-03-14 06:19] LABS: CHLORIDE,CL 95 mmol/L (98-107); SODIUM,NA 131 mmol/L (136-148)
[2019-03-14] MEDS: Insulin Aspart 100 Units/ML 3 ML Pen SUBCUT SCH ×3 (07:50→17:16)
--- NOTE | 2019-03-14 09:30 | PCM.PN ---
<Jaye Cutelr M - Last Filed: 03/14/19 09:49> - General Info Date of Service: 03/14/19 Admission Dx/Problem (Free Text): UTI Subjective Update: Feeling good this morning. No pain. No chest pain or SOB. Reports peeing and having BMs well. Functional Status: Reports: Pain Controlled, Tolerating Diet, Ambulating, Urinating - Review of Systems General: Reports: No Symptoms. Denies: Weakness, Malaise HEENT: Reports: No Symptoms. Denies: Headaches, Sore Throat Pulmonary: Reports: No Symptoms. Denies: Shortness of Breath Cardiovascular: Reports: No Symptoms. Denies: Chest Pain Gastrointestinal: Reports: No Symptoms. Denies: Abdominal Pain, Nausea, Vomiting Genitourinary: Reports: No Symptoms Musculoskeletal: Reports: No Symptoms Skin: Reports: No Symptoms Neurological: Reports: No Symptoms Psychiatric: Reports: No Symptoms - Patient Data Vitals - Most Recent: Last Vital Signs Temp 97.6 F 03/14/19 07:29 Pulse 99 03/14/19 07:29 Resp 18 03/14/19 07:29 BP 135/96 H 03/14/19 07:29 Pulse Ox 94 L 03/14/19 07:29 Weight - Most Recent: 108.862 kg I&O - Last 24 Hours: Intake & Output 03/13/19 03/14/19 03/14/19 22:59 06:59 14:59 Intake Total 1250 1300 Output Total 0 Balance 1250 1300 Lab Results Last 24 Hours: Laboratory Results - last 24 hr 03/13/19 03/13/19 03/14/19 Range/Units 12:22 16:03 05:30 WBC 7.04 (4.0-11.0) K/uL RBC 4.53 (4.50-5.90) M/uL Hgb 13.7 (13.0-17.0) g/dL Hct 41.9 (38.0-50.0) % MCV 92.5 (80.0-98.0) fL MCH 30.2 (27.0-32.0) pg MCHC 32.7 (31.0-37.0) g/dL RDW Std Deviation 46.5 (28.0-62.0) fl RDW Coeff of Mariangel 14 (11.0-15.0) % Plt Count 233 (150-400) K/uL MPV 10.30 (7.40-12.00) fL Neut % (Auto) 63.7 (48.0-80.0) % Lymph % (Auto) 22.4 (16.0-40.0) % [place] % (Auto) 11.2 (0.0-15.0) % Eos % (Auto) 1.8 (0.0-7.0) % Baso % (Auto) 0.9 (0.0-1.5) % Neut # (Auto) 4.5 (1.4-5.7) K/uL Lymph # (Auto) 1.6 (0.6-2.4) K/uL [place] # (Auto) 0.8 (0.0-0.8) K/uL Eos # (Auto) 0.1 (0.0-0.7) K/uL Baso # (Auto) 0.1 (0.0-0.1) K/uL Nucleated RBC % 0.0 /100WBC Nucleated RBCs # 0 K/uL Sodium (136-148) mmol/L Potassium (3.5-5.1) mmol/L Chloride (98-107) mmol/L Carbon Dioxide (21.0-32.0) mmol/L BUN (7.0-18.0) mg/dL Creatinine (0.8-1.3) mg/dL Est Cr Clr Drug Dosing mL/min Estimated GFR (MDRD) ml/min Glucose (74-106) mg/dL POC Glucose 200 H 175 H (60-110) mg/dL Calcium (8.5-10.1) mg/dL 03/14/19 03/14/19 Range/Units 05:30 06:28 WBC (4.0-11.0) K/uL RBC (4.50-5.90) M/uL Hgb (13.0-17.0) g/dL Hct (38.0-50.0) % MCV (80.0-98.0) fL MCH (27.0-32.0) pg MCHC (31.0-37.0) g/dL RDW Std Deviation (28.0-62.0) fl RDW Coeff of Mariangel (11.0-15.0) % Plt Count (150-400) K/uL MPV (7.40-12.00) fL Neut % (Auto) (48.0-80.0) % Lymph % (Auto) (16.0-40.0) % [place] % (Auto) (0.0-15.0) % Eos % (Auto) (0.0-7.0) % Baso % (Auto) (0.0-1.5) % Neut # (Auto) (1.4-5.7) K/uL Lymph # (Auto) (0.6-2.4) K/uL [place] # (Auto) (0.0-0.8) K/uL Eos # (Auto) (0.0-0.7) K/uL Baso # (Auto) (0.0-0.1) K/uL Nucleated RBC % /100WBC Nucleated RBCs # K/uL Sodium 131 L (136-148) mmol/L Potassium 3.6 (3.5-5.1) mmol/L Chloride 95 L (98-107) mmol/L Carbon Dioxide 28.3 (21.0-32.0) mmol/L BUN 19 H (7.0-18.0) mg/dL Creatinine 0.9 (0.8-1.3) mg/dL Est Cr Clr Drug Dosing 83.65 mL/min Estimated GFR (MDRD) > 60.0 ml/min Glucose 200 H (74-106) mg/dL POC Glucose 196 H (60-110) mg/dL Calcium 9.2 (8.5-10.1) mg/dL Med Orders - Current: Current Medications Cefdinir (Omnicef) 300 mg PO BID [facility] Last Admin: 03/13/19 21:06 Dose: 300 mg Docusate Sodium (Colace) 100 mg PO BID PRN PRN Reason: Constipation Heparin Sodium (Porcine) (Heparin Sodium) 5,000 units SUBCUT Q8H [facility] Last Admin: 03/14/19 05:25 Dose: 5,000 units Ibuprofen (Motrin) 400 mg PO Q6H PRN PRN Reason: Pain (mild 1-3) Indapamide (Indapamide) 2.5 mg PO DAILY [facility] Last Admin: 03/13/19 09:23 Dose: 2.5 mg Insulin Aspart (Novolog) 0 unit SUBCUT TIDAC [facility]; Protocol Last Admin: 03/14/19 07:50 Dose: 3 units Losartan Potassium (Cozaar) 100 mg PO DAILY [facility] Last Admin: 03/13/19 09:24 Dose: 100 mg Ondansetron HCl (Zofran Odt) 4 mg PO Q6H PRN PRN Reason: nausea, able to take PO Sodium Chloride (Saline Flush) 10 ml FLUSH ASDIRECTED PRN PRN Reason: Keep Vein Open Last Admin: 03/09/19 12:12 Dose: 10 ml Sodium Chloride (Saline Flush) 2.5 ml FLUSH ASDIRECTED PRN PRN Reason: Keep Vein Open Last Admin: 03/09/19 12:12 Dose: 2.5 ml Temazepam (Restoril) 15 mg PO BEDTIME PRN PRN Reason: Sleep Last Admin: 03/13/19 21:06 Dose: 15 mg Discontinued Medications Haloperidol (Haldol) 5 mg PO ONETIME ONE Stop: 03/09/19 15:04 Last Admin: 03/09/19 15:11 Dose: 5 mg Haloperidol (Haldol) 5 mg PO Q6H PRN PRN Reason: Agitation Last Admin: 03/11/19 23:38 Dose: 5 mg Sodium Chloride (Normal Saline) 1,000 mls @ 999 mls/hr IV .Bolus ONE Stop: 03/09/19 12:59 Last Admin: 03/09/19 12:11 Dose: 999 mls/hr Levofloxacin/Dextrose 500 mg/ (Premix) 100 mls @ 100 mls/hr IV ONETIME ONE Stop: 03/09/19 14:32 Last Admin: 03/09/19 13:47 Dose: 100 mls/hr Sodium Chloride (Normal Saline) 1,000 mls @ 75 mls/hr IV ASDIRECTED [facility] Last Admin: 03/11/19 06:41 Dose: 75 mls/hr Ceftriaxone Sodium/Dextrose 1 (gm/ Premix) 50 mls @ 100 mls/hr IV Q24H [facility] Last Admin: 03/11/19 09:03 Dose: 100 mls/hr Insulin Aspart (Novolog) 0 unit SUBCUT ACBREAKFASTANDBED [facility]; Protocol Oxycodone HCl (Oxycodone) 5 mg PO Q4H PRN PRN Reason: Pain (moderate 4-6) - Exam General: Alert, Oriented, Cooperative Lungs: Clear to Auscultation, Normal Respiratory Effort Cardiovascular: Regular Rate, Regular Rhythm GI/Abdominal Exam: Normal Bowel Sounds, Soft, Non-Tender, No Organomegaly Extremities: Normal Inspection, Normal Range of Motion, Non-Tender, No Pedal Edema Neurological: No New Focal Deficit Psy/Mental Status: Alert, Normal Affect, Normal Mood - Problem List & Annotations (1) UTI (urinary tract infection) SNOMED Code(s): 25896950 Code(s): N39.0 - URINARY TRACT INFECTION, SITE NOT SPECIFIED Status: Acute Current Visit: Yes Qualifiers: Urinary tract infection type: acute cystitis Hematuria presence: without hematuria Qualified Code(s): N30.00 - Acute cystitis without hematuria (2) Delayed emotional development SNOMED Code(s): 599985331 Code(s): F88 - OTHER DISORDERS OF PSYCHOLOGICAL DEVELOPMENT Status: Chronic Priority: High Current Visit: Yes (3) Diabetes mellitus type 2 in obese SNOMED Code(s): 99106708 Code(s): E11.69 - TYPE 2 DIABETES MELLITUS WITH OTHER SPECIFIED COMPLICATION ; E66.9 - OBESITY, UNSPECIFIED Status: Chronic Priority: High Current Visit: Yes - Problem List Review Problem List Initiated/Reviewed/Updated: Yes - Plan Plan:: This 58 year old male admitted with AMS and UTI 1. UTI: Continue Cefdinir. Voiding well, no concerns. No Leukocytosis. 2. DM Type 2: Novolog SSI. Holding Metformin and Victozia. BS stable. 3. PMH developmental delays: Hasn't been good with taking medications at home. Family considering placement in [place] VTE prophylaxis: Heparin. Dispo: Pending placement and further screening for SNF placement. <Karlos Monsalve - Last Filed: 03/14/19 12:15> - General Info Admission Dx/Problem (Free Text): I have seen and examined to patient independently of Jaye Cutler CNP. I have discussed the case for care of this patient with her. I have reviewed and approve of the plan of care as outlined by her. Please see orders. Awaiting placement. - Patient Data Vitals - Most Recent: Last Vital Signs Temp 36.4 C 03/14/19 07:29 Pulse 107 H 03/14/19 07:30 Resp 16 03/14/19 07:30 BP 148/74 H 03/14/19 09:42 Pulse Ox 98 03/14/19 07:30 I&O - Last 24 Hours: Intake & Output 03/13/19 03/14/19 03/14/19 22:59 06:59 14:59 Intake Total 1250 1300 Output Total 0 Balance 1250 1300 Lab Results Last 24 Hours: Laboratory Results - last 24 hr 03/13/19 03/13/19 03/14/19 Range/Units 12:22 16:03 05:30 WBC 7.04 (4.0-11.0) K/uL RBC 4.53 (4.50-5.90) M/uL Hgb 13.7 (13.0-17.0) g/dL Hct 41.9 (38.0-50.0) % MCV 92.5 (80.0-98.0) fL MCH 30.2 (27.0-32.0) pg MCHC 32.7 (31.0-37.0) g/dL RDW Std Deviation 46.5 (28.0-62.0) fl RDW Coeff of Mariangel 14 (11.0-15.0) % Plt Count 233 (150-400) K/uL MPV 10.30 (7.40-12.00) fL Neut % (Auto) 63.7 (48.0-80.0) % Lymph % (Auto) 22.4 (16.0-40.0) % [place] % (Auto) 11.2 (0.0-15.0) % Eos % (Auto) 1.8 (0.0-7.0) % Baso % (Auto) 0.9 (0.0-1.5) % Neut # (Auto) 4.5 (1.4-5.7) K/uL Lymph # (Auto) 1.6 (0.6-2.4) K/uL [place] # (Auto) 0.8 (0.0-0.8) K/uL Eos # (Auto) 0.1 (0.0-0.7) K/uL Baso # (Auto) 0.1 (0.0-0.1) K/uL Nucleated RBC % 0.0 /100WBC Nucleated RBCs # 0 K/uL Sodium (136-148) mmol/L Potassium (3.5-5.1) mmol/L Chloride (98-107) mmol/L Carbon Dioxide (21.0-32.0) mmol/L BUN (7.0-18.0) mg/dL Creatinine (0.8-1.3) mg/dL Est Cr Clr Drug Dosing mL/min Estimated GFR (MDRD) ml/min Glucose (74-106) mg/dL POC Glucose 200 H 175 H (60-110) mg/dL Calcium (8.5-10.1) mg/dL 03/14/19 03/14/19 03/14/19 Range/Units 05:30 06:28 12:06 WBC (4.0-11.0) K/uL RBC (4.50-5.90) M/uL Hgb (13.0-17.0) g/dL Hct (38.0-50.0) % MCV (80.0-98.0) fL MCH (27.0-32.0) pg MCHC (31.0-37.0) g/dL RDW Std Deviation (28.0-62.0) fl RDW Coeff of Mariangel (11.0-15.0) % Plt Count (150-400) K/uL MPV (7.40-12.00) fL Neut % (Auto) (48.0-80.0) % Lymph % (Auto) (16.0-40.0) % [place] % (Auto) (0.0-15.0) % Eos % (Auto) (0.0-7.0) % Baso % (Auto) (0.0-1.5) % Neut # (Auto) (1.4-5.7) K/uL Lymph # (Auto) (0.6-2.4) K/uL [place] # (Auto) (0.0-0.8) K/uL Eos # (Auto) (0.0-0.7) K/uL Baso # (Auto) (0.0-0.1) K/uL Nucleated RBC % /100WBC Nucleated RBCs # K/uL Sodium 131 L (136-148) mmol/L Potassium 3.6 (3.5-5.1) mmol/L Chloride 95 L (98-107) mmol/L Carbon Dioxide 28.3 (21.0-32.0) mmol/L BUN 19 H (7.0-18.0) mg/dL Creatinine 0.9 (0.8-1.3) mg/dL Est Cr Clr Drug Dosing 83.65 mL/min Estimated GFR (MDRD) > 60.0 ml/min Glucose 200 H (74-106) mg/dL POC Glucose 196 H 235 H (60-110) mg/dL Calcium 9.2 (8.5-10.1) mg/dL Med Orders - Current: Current Medications Cefdinir (Omnicef) 300 mg PO BID [facility] Last Admin: 03/14/19 09:42 Dose: 300 mg Docusate Sodium (Colace) 100 mg PO BID PRN PRN Reason: Constipation Heparin Sodium (Porcine) (Heparin Sodium) 5,000 units SUBCUT Q8H [facility] Last Admin: 03/14/19 05:25 Dose: 5,000 units Ibuprofen (Motrin) 400 mg PO Q6H PRN PRN Reason: Pain (mild 1-3) Indapamide (Indapamide) 2.5 mg PO DAILY [facility] Last Admin: 03/14/19 09:41 Dose: 2.5 mg Insulin Aspart (Novolog) 0 unit SUBCUT TIDAC [facility]; Protocol Last Admin: 03/14/19 12:09 Dose: 6 units Losartan Potassium (Cozaar) 100 mg PO DAILY [facility] Last Admin: 03/14/19 09:42 Dose: 100 mg Ondansetron HCl (Zofran Odt) 4 mg PO Q6H PRN PRN Reason: nausea, able to take PO Sodium Chloride (Saline Flush) 10 ml FLUSH ASDIRECTED PRN PRN Reason: Keep Vein Open Last Admin: 03/09/19 12:12 Dose: 10 ml Sodium Chloride (Saline Flush) 2.5 ml FLUSH ASDIRECTED PRN PRN Reason: Keep Vein Open Last Admin: 03/09/19 12:12 Dose: 2.5 ml Temazepam (Restoril) 15 mg PO BEDTIME PRN PRN Reason: Sleep Last Admin: 03/13/19 21:06 Dose: 15 mg Discontinued Medications Haloperidol (Haldol) 5 mg PO ONETIME ONE Stop: 03/09/19 15:04 Last Admin: 03/09/19 15:11 Dose: 5 mg Haloperidol (Haldol) 5 mg PO Q6H PRN PRN Reason: Agitation Last Admin: 03/11/19 23:38 Dose: 5 mg Sodium Chloride (Normal Saline) 1,000 mls @ 999 mls/hr IV .Bolus ONE Stop: 03/09/19 12:59 Last Admin: 03/09/19 12:11 Dose: 999 mls/hr Levofloxacin/Dextrose 500 mg/ (Premix) 100 mls @ 100 mls/hr IV ONETIME ONE Stop: 03/09/19 14:32 Last Admin: 03/09/19 13:47 Dose: 100 mls/hr Sodium Chloride (Normal Saline) 1,000 mls @ 75 mls/hr IV ASDIRECTED [facility] Last Admin: 03/11/19 06:41 Dose: 75 mls/hr Ceftriaxone Sodium/Dextrose 1 (gm/ Premix) 50 mls @ 100 mls/hr IV Q24H [facility] Last Admin: 03/11/19 09:03 Dose: 100 mls/hr Insulin Aspart (Novolog) 0 unit SUBCUT ACBREAKFASTANDBED [facility]; Protocol Oxycodone HCl (Oxycodone) 5 mg PO Q4H PRN PRN Reason: Pain (moderate 4-6) - Problem List & Annotations (1) Altered mental status SNOMED Code(s): 980684350 Code(s): R41.82 - ALTERED MENTAL STATUS, UNSPECIFIED Status: Acute Priority: High Current Visit: Yes Qualifiers: Altered mental status type: unspecified Qualified Code(s): R41.82 - Altered mental status, unspecified (2) Delayed emotional development SNOMED Code(s): 585062360 Code(s): F88 - OTHER DISORDERS OF PSYCHOLOGICAL DEVELOPMENT Status: Chronic Priority: High Current Visit: Yes (3) Diabetes mellitus type 2 in obese SNOMED Code(s): 57752234 Code(s): E11.69 - TYPE 2 DIABETES MELLITUS WITH OTHER SPECIFIED COMPLICATION ; E66.9 - OBESITY, UNSPECIFIED Status: Chronic Priority: High Current Visit: Yes (4) Noncompliance SNOMED Code(s): 6318998 Code(s): Z91.19 - PATIENT'S NONCOMPLIANCE W OTH MEDICAL TREATMENT AND REGIMEN Status: Chronic Priority: Medium Current Visit: Yes (5) Total self-care deficit SNOMED Code(s): 29449205 Code(s): R41.89 - OTH SYMPTOMS AND SIGNS W COGNITIVE FUNCTIONS AND AWARENESS Status: Chronic Priority: High Current Visit: Yes
[2019-03-14] MEDS: Cefdinir 300 MG Cap PO SCH ×2 (09:42→20:48)
[2019-03-14] MEDS: Losartan 50 MG Tab PO SCH (09:42)
[2019-03-15] MEDS: Heparin Sodium 5,000 Units/ML Vial SUBCUT SCH ×3 (06:26→21:51)
--- NOTE | 2019-03-15 07:57 | PCM.PN ---
<Jaye Cutler M - Last Filed: 03/15/19 09:14> - General Info Date of Service: 03/15/19 Admission Dx/Problem (Free Text): UTI Subjective Update: Doing well this morning, no complaints. Up ambulating in room per self. Functional Status: Reports: Pain Controlled, Tolerating Diet, Ambulating, Urinating - Review of Systems General: Reports: No Symptoms. Denies: Weakness, Malaise HEENT: Reports: No Symptoms. Denies: Headaches, Sore Throat Pulmonary: Reports: No Symptoms. Denies: Shortness of Breath Cardiovascular: Reports: No Symptoms. Denies: Chest Pain Gastrointestinal: Reports: No Symptoms. Denies: Abdominal Pain, Nausea, Vomiting Genitourinary: Reports: No Symptoms. Denies: Dysuria, Frequency, Burning Musculoskeletal: Reports: No Symptoms Skin: Reports: No Symptoms Neurological: Reports: No Symptoms Psychiatric: Reports: No Symptoms - Patient Data Vitals - Most Recent: Last Vital Signs Temp 96.1 F 03/15/19 07:42 Pulse 112 H 03/15/19 07:42 Resp 16 03/15/19 07:42 BP 144/107 H 03/15/19 07:42 Pulse Ox 97 03/15/19 07:42 Weight - Most Recent: 108.862 kg I&O - Last 24 Hours: Intake & Output 03/14/19 03/15/19 03/15/19 22:59 06:59 14:59 Intake Total 640 2160 Balance 640 2160 Lab Results Last 24 Hours: Laboratory Results - last 24 hr 03/14/19 03/14/19 03/14/19 Range/Units 12:06 17:04 21:58 POC Glucose 235 H 177 H 199 H (60-110) mg/dL 03/15/19 Range/Units 06:53 POC Glucose 203 H (60-110) mg/dL Med Orders - Current: Current Medications Cefdinir (Omnicef) 300 mg PO BID [facility] Last Admin: 03/14/19 20:48 Dose: 300 mg Docusate Sodium (Colace) 100 mg PO BID PRN PRN Reason: Constipation Heparin Sodium (Porcine) (Heparin Sodium) 5,000 units SUBCUT Q8H [facility] Last Admin: 03/15/19 06:26 Dose: 5,000 units Ibuprofen (Motrin) 400 mg PO Q6H PRN PRN Reason: Pain (mild 1-3) Indapamide (Indapamide) 2.5 mg PO DAILY [facility] Last Admin: 03/14/19 09:41 Dose: 2.5 mg Insulin Aspart (Novolog) 0 unit SUBCUT TIDAC [facility]; Protocol Last Admin: 03/14/19 17:16 Dose: 3 units Losartan Potassium (Cozaar) 100 mg PO DAILY [facility] Last Admin: 03/14/19 09:42 Dose: 100 mg Ondansetron HCl (Zofran Odt) 4 mg PO Q6H PRN PRN Reason: nausea, able to take PO Sodium Chloride (Saline Flush) 10 ml FLUSH ASDIRECTED PRN PRN Reason: Keep Vein Open Last Admin: 03/09/19 12:12 Dose: 10 ml Sodium Chloride (Saline Flush) 2.5 ml FLUSH ASDIRECTED PRN PRN Reason: Keep Vein Open Last Admin: 03/09/19 12:12 Dose: 2.5 ml Temazepam (Restoril) 15 mg PO BEDTIME PRN PRN Reason: Sleep Last Admin: 03/13/19 21:06 Dose: 15 mg Discontinued Medications Haloperidol (Haldol) 5 mg PO ONETIME ONE Stop: 03/09/19 15:04 Last Admin: 03/09/19 15:11 Dose: 5 mg Haloperidol (Haldol) 5 mg PO Q6H PRN PRN Reason: Agitation Last Admin: 03/11/19 23:38 Dose: 5 mg Sodium Chloride (Normal Saline) 1,000 mls @ 999 mls/hr IV .Bolus ONE Stop: 03/09/19 12:59 Last Admin: 03/09/19 12:11 Dose: 999 mls/hr Levofloxacin/Dextrose 500 mg/ (Premix) 100 mls @ 100 mls/hr IV ONETIME ONE Stop: 03/09/19 14:32 Last Admin: 03/09/19 13:47 Dose: 100 mls/hr Sodium Chloride (Normal Saline) 1,000 mls @ 75 mls/hr IV ASDIRECTED [facility] Last Admin: 03/11/19 06:41 Dose: 75 mls/hr Ceftriaxone Sodium/Dextrose 1 (gm/ Premix) 50 mls @ 100 mls/hr IV Q24H [facility] Last Admin: 03/11/19 09:03 Dose: 100 mls/hr Insulin Aspart (Novolog) 0 unit SUBCUT ACBREAKFASTANDBED [facility]; Protocol Oxycodone HCl (Oxycodone) 5 mg PO Q4H PRN PRN Reason: Pain (moderate 4-6) - Exam General: Alert, Oriented, Cooperative, No Acute Distress Lungs: Clear to Auscultation, Normal Respiratory Effort Cardiovascular: Regular Rate, Regular Rhythm GI/Abdominal Exam: Normal Bowel Sounds, Soft, Non-Tender, No Organomegaly Extremities: Normal Inspection, Normal Range of Motion, Non-Tender, Pedal Edema Neurological: No New Focal Deficit Psy/Mental Status: Alert, Normal Affect, Normal Mood - Problem List & Annotations (1) UTI (urinary tract infection) SNOMED Code(s): 42019281 Code(s): N39.0 - URINARY TRACT INFECTION, SITE NOT SPECIFIED Status: Acute Current Visit: Yes Qualifiers: Urinary tract infection type: acute cystitis Hematuria presence: without hematuria Qualified Code(s): N30.00 - Acute cystitis without hematuria (2) Delayed emotional development SNOMED Code(s): 770492925 Code(s): F88 - OTHER DISORDERS OF PSYCHOLOGICAL DEVELOPMENT Status: Chronic Priority: High Current Visit: Yes (3) Diabetes mellitus type 2 in obese SNOMED Code(s): 53024431 Code(s): E11.69 - TYPE 2 DIABETES MELLITUS WITH OTHER SPECIFIED COMPLICATION ; E66.9 - OBESITY, UNSPECIFIED Status: Chronic Priority: High Current Visit: Yes - Problem List Review Problem List Initiated/Reviewed/Updated: Yes - Plan Plan:: This 58 year old male admitted with AMS and UTI 1. UTI: Continue Cefdinir. Voiding well, no concerns. No Leukocytosis. 2. DM Type 2: Novolog SSI. Holding Metformin and Victozia. BS stable. 3. PMH developmental delays: Hasn't been good with taking medications at home. Family considering placement in [place] VTE prophylaxis: Heparin. Dispo: Pending placement and further screening for SNF placement. <Karlos Monsalve - Last Filed: 03/16/19 08:52> - General Info Admission Dx/Problem (Free Text): I have seen and examined to patient independently of Jaye Cutler CNP. I have discussed the case for care of this patient with her. I have reviewed and approve of the plan of care as outlined by her. Please see orders. Awaiting placement. - Patient Data Vitals - Most Recent: Last Vital Signs Temp 35.9 C 03/16/19 07:49 Pulse 91 03/16/19 07:49 Resp 14 03/16/19 07:49 BP 149/89 H 03/16/19 08:39 Pulse Ox 97 03/16/19 07:49 I&O - Last 24 Hours: Intake & Output 03/15/19 03/16/19 03/16/19 22:59 06:59 14:59 Intake Total 900 2200 Output Total 0 Balance 900 2200 Lab Results Last 24 Hours: Laboratory Results - last 24 hr 03/15/19 03/15/19 03/16/19 Range/Units 11:31 17:09 06:16 POC Glucose 181 H 204 H 224 H (60-110) mg/dL Med Orders - Current: Current Medications Cefdinir (Omnicef) 300 mg PO BID [facility] Last Admin: 03/16/19 08:39 Dose: 300 mg Docusate Sodium (Colace) 100 mg PO BID PRN PRN Reason: Constipation Heparin Sodium (Porcine) (Heparin Sodium) 5,000 units SUBCUT Q8H [facility] Last Admin: 03/16/19 06:11 Dose: 5,000 units Ibuprofen (Motrin) 400 mg PO Q6H PRN PRN Reason: Pain (mild 1-3) Indapamide (Indapamide) 2.5 mg PO DAILY [facility] Last Admin: 03/16/19 08:40 Dose: 2.5 mg Insulin Aspart (Novolog) 0 unit SUBCUT TIDAC [facility]; Protocol Last Admin: 03/16/19 08:41 Dose: 6 units Losartan Potassium (Cozaar) 100 mg PO DAILY [facility] Last Admin: 03/16/19 08:39 Dose: 100 mg Ondansetron HCl (Zofran Odt) 4 mg PO Q6H PRN PRN Reason: nausea, able to take PO Sodium Chloride (Saline Flush) 10 ml FLUSH ASDIRECTED PRN PRN Reason: Keep Vein Open Last Admin: 03/09/19 12:12 Dose: 10 ml Sodium Chloride (Saline Flush) 2.5 ml FLUSH ASDIRECTED PRN PRN Reason: Keep Vein Open Last Admin: 03/09/19 12:12 Dose: 2.5 ml Temazepam (Restoril) 15 mg PO BEDTIME PRN PRN Reason: Sleep Last Admin: 03/13/19 21:06 Dose: 15 mg Discontinued Medications Haloperidol (Haldol) 5 mg PO ONETIME ONE Stop: 03/09/19 15:04 Last Admin: 03/09/19 15:11 Dose: 5 mg Haloperidol (Haldol) 5 mg PO Q6H PRN PRN Reason: Agitation Last Admin: 03/11/19 23:38 Dose: 5 mg Sodium Chloride (Normal Saline) 1,000 mls @ 999 mls/hr IV .Bolus ONE Stop: 03/09/19 12:59 Last Admin: 03/09/19 12:11 Dose: 999 mls/hr Levofloxacin/Dextrose 500 mg/ (Premix) 100 mls @ 100 mls/hr IV ONETIME ONE Stop: 03/09/19 14:32 Last Admin: 03/09/19 13:47 Dose: 100 mls/hr Sodium Chloride (Normal Saline) 1,000 mls @ 75 mls/hr IV ASDIRECTED [facility] Last Admin: 03/11/19 06:41 Dose: 75 mls/hr Ceftriaxone Sodium/Dextrose 1 (gm/ Premix) 50 mls @ 100 mls/hr IV Q24H [facility] Last Admin: 03/11/19 09:03 Dose: 100 mls/hr Insulin Aspart (Novolog) 0 unit SUBCUT ACBREAKFASTANDBED [facility]; Protocol Oxycodone HCl (Oxycodone) 5 mg PO Q4H PRN PRN Reason: Pain (moderate 4-6) - Problem List & Annotations (1) Altered mental status SNOMED Code(s): 786787266 Code(s): R41.82 - ALTERED MENTAL STATUS, UNSPECIFIED Status: Acute Priority: High Current Visit: Yes Qualifiers: Altered mental status type: unspecified Qualified Code(s): R41.82 - Altered mental status, unspecified (2) Delayed emotional development SNOMED Code(s): 084213816 Code(s): F88 - OTHER DISORDERS OF PSYCHOLOGICAL DEVELOPMENT Status: Chronic Priority: High Current Visit: Yes (3) Diabetes mellitus type 2 in obese SNOMED Code(s): 30856244 Code(s): E11.69 - TYPE 2 DIABETES MELLITUS WITH OTHER SPECIFIED COMPLICATION ; E66.9 - OBESITY, UNSPECIFIED Status: Chronic Priority: High Current Visit: Yes (4) Noncompliance SNOMED Code(s): 2727140 Code(s): Z91.19 - PATIENT'S NONCOMPLIANCE W OTH MEDICAL TREATMENT AND REGIMEN Status: Chronic Priority: Medium Current Visit: Yes (5) Total self-care deficit SNOMED Code(s): 57489040 Code(s): R41.89 - OTH SYMPTOMS AND SIGNS W COGNITIVE FUNCTIONS AND AWARENESS Status: Chronic Priority: High Current Visit: Yes
[2019-03-15] MEDS: Insulin Aspart 100 Units/ML 3 ML Pen SUBCUT SCH ×3 (08:12→17:12)
[2019-03-15] MEDS: Losartan 50 MG Tab PO SCH (08:57)
[2019-03-15] MEDS: Cefdinir 300 MG Cap PO SCH ×2 (08:57→20:18)
[2019-03-16] MEDS: Heparin Sodium 5,000 Units/ML Vial SUBCUT SCH ×3 (06:11→22:54)
--- NOTE | 2019-03-16 07:25 | PCM.PN ---
- General Info Date of Service: 03/16/19 Admission Dx/Problem (Free Text): Admitted secondary to altered mental status as well as inability to care for self at home. Subjective Update: The patient is a 58-year-old gentleman who had been admitted on March 09, 2019 secondary to altered mental status. The patient previously at home and had been exhibiting bizarre behavior and the family was wanting the patient to considered for [facility]. Last night the patient disappeared for approximately 1 hour and multiple resources were mobilized to find the patient. The patient had a wander alert bracelet. The patient was found in a nearby room. It's uncertain where the patient had been. Functional Status: Reports: Pain Controlled - Review of Systems General: Reports: No Symptoms HEENT: Reports: No Symptoms Pulmonary: Reports: No Symptoms Cardiovascular: Reports: No Symptoms Gastrointestinal: Reports: No Symptoms Genitourinary: Reports: No Symptoms Musculoskeletal: Reports: No Symptoms Skin: Reports: No Symptoms Neurological: Reports: No Symptoms Psychiatric: Reports: No Symptoms Systems Review Comment:: Review of systems not reliable. - Patient Data Vitals - Most Recent: Last Vital Signs Temp 36.4 C 03/16/19 04:16 Pulse 112 H 03/16/19 04:16 Resp 20 03/16/19 04:16 BP 164/97 H 03/16/19 04:16 Pulse Ox 95 03/16/19 04:16 Weight - Most Recent: 108.862 kg I&O - Last 24 Hours: Intake & Output 03/15/19 03/16/19 03/16/19 22:59 06:59 14:59 Intake Total 900 2200 Output Total 0 Balance 900 2200 Lab Results Last 24 Hours: Laboratory Results - last 24 hr 03/15/19 03/15/19 03/16/19 Range/Units 11:31 17:09 06:16 POC Glucose 181 H 204 H 224 H (60-110) mg/dL Med Orders - Current: Current Medications Cefdinir (Omnicef) 300 mg PO BID [facility] Last Admin: 03/15/19 20:18 Dose: 300 mg Docusate Sodium (Colace) 100 mg PO BID PRN PRN Reason: Constipation Heparin Sodium (Porcine) (Heparin Sodium) 5,000 units SUBCUT Q8H [facility] Last Admin: 03/16/19 06:11 Dose: 5,000 units Ibuprofen (Motrin) 400 mg PO Q6H PRN PRN Reason: Pain (mild 1-3) Indapamide (Indapamide) 2.5 mg PO DAILY [facility] Last Admin: 03/15/19 08:58 Dose: 2.5 mg Insulin Aspart (Novolog) 0 unit SUBCUT TIDAC [facility]; Protocol Last Admin: 03/15/19 17:12 Dose: 6 units Losartan Potassium (Cozaar) 100 mg PO DAILY [facility] Last Admin: 03/15/19 08:57 Dose: 100 mg Ondansetron HCl (Zofran Odt) 4 mg PO Q6H PRN PRN Reason: nausea, able to take PO Sodium Chloride (Saline Flush) 10 ml FLUSH ASDIRECTED PRN PRN Reason: Keep Vein Open Last Admin: 03/09/19 12:12 Dose: 10 ml Sodium Chloride (Saline Flush) 2.5 ml FLUSH ASDIRECTED PRN PRN Reason: Keep Vein Open Last Admin: 03/09/19 12:12 Dose: 2.5 ml Temazepam (Restoril) 15 mg PO BEDTIME PRN PRN Reason: Sleep Last Admin: 03/13/19 21:06 Dose: 15 mg Discontinued Medications Haloperidol (Haldol) 5 mg PO ONETIME ONE Stop: 03/09/19 15:04 Last Admin: 03/09/19 15:11 Dose: 5 mg Haloperidol (Haldol) 5 mg PO Q6H PRN PRN Reason: Agitation Last Admin: 03/11/19 23:38 Dose: 5 mg Sodium Chloride (Normal Saline) 1,000 mls @ 999 mls/hr IV .Bolus ONE Stop: 03/09/19 12:59 Last Admin: 03/09/19 12:11 Dose: 999 mls/hr Levofloxacin/Dextrose 500 mg/ (Premix) 100 mls @ 100 mls/hr IV ONETIME ONE Stop: 03/09/19 14:32 Last Admin: 03/09/19 13:47 Dose: 100 mls/hr Sodium Chloride (Normal Saline) 1,000 mls @ 75 mls/hr IV ASDIRECTED [facility] Last Admin: 03/11/19 06:41 Dose: 75 mls/hr Ceftriaxone Sodium/Dextrose 1 (gm/ Premix) 50 mls @ 100 mls/hr IV Q24H [facility] Last Admin: 03/11/19 09:03 Dose: 100 mls/hr Insulin Aspart (Novolog) 0 unit SUBCUT ACBREAKFASTANDBED [facility]; Protocol Oxycodone HCl (Oxycodone) 5 mg PO Q4H PRN PRN Reason: Pain (moderate 4-6) - Exam Quality Assessment: Supplemental Oxygen General: Alert, Cooperative, No Acute Distress. No: Oriented HEENT: Pupils Equal, Pupils Reactive, EOMI, Mucous Membr. Moist/[place] (Dry) Neck: Supple, Trachea Midline Lungs: Clear to Auscultation, Normal Respiratory Effort Cardiovascular: Regular Rate, Regular Rhythm GI/Abdominal Exam: Normal Bowel Sounds, Soft, No Distention Back Exam: Normal Inspection Extremities: Normal Inspection, No Pedal Edema Skin: Warm, Dry, Intact Neurological: No New Focal Deficit, Normal Gait Psy/Mental Status: Alert, Normal Affect, Normal Mood - Problem List & Annotations (1) Altered mental status SNOMED Code(s): 391079400 Code(s): R41.82 - ALTERED MENTAL STATUS, UNSPECIFIED Status: Acute Priority: High Current Visit: Yes Qualifiers: Altered mental status type: unspecified Qualified Code(s): R41.82 - Altered mental status, unspecified (2) Delayed emotional development SNOMED Code(s): 323695720 Code(s): F88 - OTHER DISORDERS OF PSYCHOLOGICAL DEVELOPMENT Status: Chronic Priority: High Current Visit: Yes (3) Diabetes mellitus type 2 in obese SNOMED Code(s): 40703416 Code(s): E11.69 - TYPE 2 DIABETES MELLITUS WITH OTHER SPECIFIED COMPLICATION ; E66.9 - OBESITY, UNSPECIFIED Status: Chronic Priority: High Current Visit: Yes (4) Noncompliance SNOMED Code(s): 4787255 Code(s): Z91.19 - PATIENT'S NONCOMPLIANCE W OTH MEDICAL TREATMENT AND REGIMEN Status: Chronic Priority: Medium Current Visit: Yes (5) Total self-care deficit SNOMED Code(s): 84694919 Code(s): R41.89 - OTH SYMPTOMS AND SIGNS W COGNITIVE FUNCTIONS AND AWARENESS Status: Chronic Priority: High Current Visit: Yes - Problem List Review Problem List Initiated/Reviewed/Updated: Yes - Plan Plan:: This 58 year old male admitted with AMS and UTI 1. UTI: Continue Cefdinir. Voiding well, no concerns. No Leukocytosis. 2. DM Type 2: Novolog SSI. Holding Metformin and Victozia. BS stable. 3. PMH developmental delays: Hasn't been good with taking medications at home. Family considering placement in [place] VTE prophylaxis: Heparin. Dispo: Pending placement and further screening for SNF placement. The patient is a 58-year-old gentleman who is currently awaiting placement. The patient's UTIs essentially resolved. We'll continue on antibiotics. He is also a type II diabetic and he will be kept on appropriate ADA diet as well as Accu- Cheks before meals and at bedtime. The patient will be continued on DVT prophylaxis. Continue to monitor closely to ensure patient does not elope.
[2019-03-16] MEDS: Losartan 50 MG Tab PO SCH (08:39)
[2019-03-16] MEDS: Cefdinir 300 MG Cap PO SCH ×2 (08:39→20:29)
[2019-03-16] MEDS: Insulin Aspart 100 Units/ML 3 ML Pen SUBCUT SCH ×3 (08:41→18:26)
[2019-03-16] MEDS ORDERED: Haloperidol 5 MG Tab PO ONE (13:52)
[2019-03-16] MEDS ORDERED: Haloperidol Lactate 5 MG/ML SDV IM ONE (14:16)
[2019-03-16] MEDS ORDERED: LORazepam 2 MG/ML SDV IM ONE (14:56)
[2019-03-16] MEDS: Temazepam 15 MG Cap PO PRN (20:29)
[2019-03-17] MEDS: Heparin Sodium 5,000 Units/ML Vial SUBCUT SCH ×3 (05:33→21:15)
--- NOTE | 2019-03-17 07:32 | PCM.PN ---
- General Info Date of Service: 03/17/19 Admission Dx/Problem (Free Text): Admitted secondary to altered mental status as well as inability to care for self at home. Subjective Update: The patient is a 58-year-old gentleman was admitted secondary to altered mental status as well as not being able to care for himself at home. Patient does have some developmental issues. The patient has had issues overnight with wandering, agitation, not taking oral medications and had required IM sedation with Haldol and Ativan yesterday. The patient is alert but disoriented. Functional Status: Reports: Pain Controlled - Review of Systems General: Reports: No Symptoms HEENT: Reports: No Symptoms Pulmonary: Reports: No Symptoms Cardiovascular: Reports: No Symptoms Gastrointestinal: Reports: No Symptoms Genitourinary: Reports: No Symptoms Musculoskeletal: Reports: No Symptoms Skin: Reports: No Symptoms Neurological: Reports: No Symptoms Psychiatric: Reports: No Symptoms Systems Review Comment:: Not reliable - Patient Data Vitals - Most Recent: Last Vital Signs Temp 36.6 C 03/17/19 07:20 Pulse 98 03/17/19 07:20 Resp 18 03/16/19 20:53 BP 128/89 03/17/19 07:20 Pulse Ox 98 03/17/19 07:20 Weight - Most Recent: 108.862 kg I&O - Last 24 Hours: Intake & Output 03/16/19 03/17/19 03/17/19 22:59 06:59 14:59 Intake Total 1120 1180 Output Total 1750 Balance 1120 -570 Lab Results Last 24 Hours: Laboratory Results - last 24 hr 03/16/19 03/16/19 03/17/19 Range/Units 11:19 20:56 06:02 POC Glucose 212 H 308 H 221 H (60-110) mg/dL Med Orders - Current: Current Medications Cefdinir (Omnicef) 300 mg PO BID [facility] Last Admin: 03/16/19 20:29 Dose: 300 mg Docusate Sodium (Colace) 100 mg PO BID PRN PRN Reason: Constipation Heparin Sodium (Porcine) (Heparin Sodium) 5,000 units SUBCUT Q8H [facility] Last Admin: 03/17/19 05:33 Dose: 5,000 units Ibuprofen (Motrin) 400 mg PO Q6H PRN PRN Reason: Pain (mild 1-3) Indapamide (Indapamide) 2.5 mg PO DAILY [facility] Last Admin: 03/16/19 08:40 Dose: 2.5 mg Insulin Aspart (Novolog) 0 unit SUBCUT TIDAC [facility]; Protocol Last Admin: 03/16/19 18:26 Dose: Not Given Losartan Potassium (Cozaar) 100 mg PO DAILY [facility] Last Admin: 03/16/19 08:39 Dose: 100 mg Ondansetron HCl (Zofran Odt) 4 mg PO Q6H PRN PRN Reason: nausea, able to take PO Sodium Chloride (Saline Flush) 10 ml FLUSH ASDIRECTED PRN PRN Reason: Keep Vein Open Last Admin: 03/09/19 12:12 Dose: 10 ml Sodium Chloride (Saline Flush) 2.5 ml FLUSH ASDIRECTED PRN PRN Reason: Keep Vein Open Last Admin: 03/09/19 12:12 Dose: 2.5 ml Temazepam (Restoril) 15 mg PO BEDTIME PRN PRN Reason: Sleep Last Admin: 03/16/19 20:29 Dose: 15 mg Discontinued Medications Haloperidol (Haldol) 5 mg PO ONETIME ONE Stop: 03/09/19 15:04 Last Admin: 03/09/19 15:11 Dose: 5 mg Haloperidol (Haldol) 5 mg PO Q6H PRN PRN Reason: Agitation Last Admin: 03/11/19 23:38 Dose: 5 mg Haloperidol (Haldol) 10 mg PO ONETIME ONE Stop: 03/16/19 13:53 Last Admin: 03/16/19 14:22 Dose: Not Given Haloperidol Lactate (Haldol) 5 mg IM ONETIME ONE Stop: 03/16/19 14:17 Last Admin: 03/16/19 14:22 Dose: 5 mg Sodium Chloride (Normal Saline) 1,000 mls @ 999 mls/hr IV .Bolus ONE Stop: 03/09/19 12:59 Last Admin: 03/09/19 12:11 Dose: 999 mls/hr Levofloxacin/Dextrose 500 mg/ (Premix) 100 mls @ 100 mls/hr IV ONETIME ONE Stop: 03/09/19 14:32 Last Admin: 03/09/19 13:47 Dose: 100 mls/hr Sodium Chloride (Normal Saline) 1,000 mls @ 75 mls/hr IV ASDIRECTED [facility] Last Admin: 03/11/19 06:41 Dose: 75 mls/hr Ceftriaxone Sodium/Dextrose 1 (gm/ Premix) 50 mls @ 100 mls/hr IV Q24H [facility] Last Admin: 03/11/19 09:03 Dose: 100 mls/hr Insulin Aspart (Novolog) 0 unit SUBCUT ACBREAKFASTANDBED [facility]; Protocol Lorazepam (Ativan) 2 mg IM ONETIME ONE Stop: 03/16/19 14:57 Last Admin: 03/16/19 15:04 Dose: 2 mg Oxycodone HCl (Oxycodone) 5 mg PO Q4H PRN PRN Reason: Pain (moderate 4-6) - Exam Quality Assessment: No: Supplemental Oxygen General: Alert, Other (Agitated). No: Oriented HEENT: Pupils Equal, Pupils Reactive, EOMI Neck: Supple, Trachea Midline Lungs: Clear to Auscultation, Normal Respiratory Effort Cardiovascular: Regular Rate, Regular Rhythm GI/Abdominal Exam: Normal Bowel Sounds, Soft, No Distention Back Exam: Normal Inspection, Full Range of Motion Extremities: Normal Inspection, No Pedal Edema Skin: Warm, Dry, Intact Neurological: No New Focal Deficit, Normal Gait Psy/Mental Status: Alert, Anxious, Agitated. No: Normal Affect, Normal Mood - Problem List & Annotations (1) Altered mental status SNOMED Code(s): 753156744 Code(s): R41.82 - ALTERED MENTAL STATUS, UNSPECIFIED Status: Acute Priority: High Current Visit: Yes Qualifiers: Altered mental status type: unspecified Qualified Code(s): R41.82 - Altered mental status, unspecified (2) Delayed emotional development SNOMED Code(s): 120757554 Code(s): F88 - OTHER DISORDERS OF PSYCHOLOGICAL DEVELOPMENT Status: Chronic Priority: High Current Visit: Yes (3) Diabetes mellitus type 2 in obese SNOMED Code(s): 85209241 Code(s): E11.69 - TYPE 2 DIABETES MELLITUS WITH OTHER SPECIFIED COMPLICATION ; E66.9 - OBESITY, UNSPECIFIED Status: Chronic Priority: High Current Visit: Yes (4) Noncompliance SNOMED Code(s): 8297803 Code(s): Z91.19 - PATIENT'S NONCOMPLIANCE W OTH MEDICAL TREATMENT AND REGIMEN Status: Chronic Priority: Medium Current Visit: Yes (5) Total self-care deficit SNOMED Code(s): 53109652 Code(s): R41.89 - OTH SYMPTOMS AND SIGNS W COGNITIVE FUNCTIONS AND AWARENESS Status: Chronic Priority: High Current Visit: Yes - Problem List Review Problem List Initiated/Reviewed/Updated: Yes - My Orders Last 24 Hours: My Active Orders 03/16/19 21:00 Vital Signs [RC] Q12HR - Plan Plan:: The patient is a 58-year-old gentleman who is currently awaiting placement. The patient's behavior has been good other than his agitation, tendency to wander and not taking his medications. I've ordered Ativan 2 mg IM every 6 hours as needed for agitation. The patient is currently on monitoring bracelet to prevent wandering away. The patient will be continued on DVT prophylaxis. Patient will also be kept on appropriate ADA diet. Currently awaiting placement.
[2019-03-17] MEDS: Insulin Aspart 100 Units/ML 3 ML Pen SUBCUT SCH ×3 (07:44→16:50)
[2019-03-17] MEDS: Cefdinir 300 MG Cap PO SCH ×4 (08:00→20:55)
[2019-03-17] MEDS: Losartan 50 MG Tab PO SCH ×3 (08:01→08:23)
[2019-03-17] MEDS: LORazepam 2 MG/ML SDV IM PRN ×2 (09:12→23:55)
[2019-03-17] MEDS: Temazepam 15 MG Cap PO PRN (20:56)
[2019-03-18] MEDS: Heparin Sodium 5,000 Units/ML Vial SUBCUT SCH ×3 (06:46→21:01)
--- NOTE | 2019-03-18 08:26 | PCM.PN ---
<Jaye Cutler M - Last Filed: 03/18/19 09:26> - General Info Date of Service: 03/18/19 Admission Dx/Problem (Free Text): Inability to care for self Subjective Update: Sitting on the edge of the bed, eating breakfast. Sitter at bedside. No complaints this morning. Alert. Functional Status: Reports: Pain Controlled, Tolerating Diet, Ambulating, Urinating - Review of Systems General: Reports: No Symptoms. Denies: Fever, Weakness, Fatigue HEENT: Reports: No Symptoms. Denies: Headaches, Sore Throat Pulmonary: Reports: No Symptoms. Denies: Shortness of Breath Cardiovascular: Reports: No Symptoms. Denies: Chest Pain Gastrointestinal: Reports: No Symptoms. Denies: Abdominal Pain, Nausea, Vomiting Skin: Reports: No Symptoms Neurological: Reports: No Symptoms Psychiatric: Reports: No Symptoms - Patient Data Vitals - Most Recent: Last Vital Signs Temp 96.6 F 03/18/19 07:18 Pulse 82 03/18/19 07:18 Resp 16 03/18/19 07:18 BP 124/78 03/18/19 07:18 Pulse Ox 95 03/18/19 07:18 Weight - Most Recent: 97.069 kg I&O - Last 24 Hours: Intake & Output 03/17/19 03/18/19 03/18/19 22:59 06:59 14:59 Intake Total 2700 3020 Output Total 1470 Balance 1230 3020 Lab Results Last 24 Hours: Laboratory Results - last 24 hr 03/17/19 03/17/19 03/17/19 Range/Units 11:03 16:16 21:13 POC Glucose 206 H 256 H 221 H (60-110) mg/dL Med Orders - Current: Current Medications Cefdinir (Omnicef) 300 mg PO BID [facility] Last Admin: 03/17/19 20:55 Dose: 300 mg Docusate Sodium (Colace) 100 mg PO BID PRN PRN Reason: Constipation Heparin Sodium (Porcine) (Heparin Sodium) 5,000 units SUBCUT Q8H [facility] Last Admin: 03/18/19 06:46 Dose: 5,000 units Ibuprofen (Motrin) 400 mg PO Q6H PRN PRN Reason: Pain (mild 1-3) Indapamide (Indapamide) 2.5 mg PO DAILY [facility] Last Admin: 03/17/19 08:22 Dose: 2.5 mg Insulin Aspart (Novolog) 0 unit SUBCUT TIDAC [facility]; Protocol Last Admin: 03/17/19 16:50 Dose: 9 units Lorazepam (Ativan) 2 mg IM Q6H PRN PRN Reason: Agitation Last Admin: 03/17/19 23:55 Dose: 2 mg Losartan Potassium (Cozaar) 100 mg PO DAILY [facility] Last Admin: 03/17/19 08:23 Dose: 100 mg Ondansetron HCl (Zofran Odt) 4 mg PO Q6H PRN PRN Reason: nausea, able to take PO Sodium Chloride (Saline Flush) 10 ml FLUSH ASDIRECTED PRN PRN Reason: Keep Vein Open Last Admin: 03/09/19 12:12 Dose: 10 ml Sodium Chloride (Saline Flush) 2.5 ml FLUSH ASDIRECTED PRN PRN Reason: Keep Vein Open Last Admin: 03/09/19 12:12 Dose: 2.5 ml Temazepam (Restoril) 15 mg PO BEDTIME PRN PRN Reason: Sleep Last Admin: 03/17/19 20:56 Dose: 15 mg Discontinued Medications Haloperidol (Haldol) 5 mg PO ONETIME ONE Stop: 03/09/19 15:04 Last Admin: 03/09/19 15:11 Dose: 5 mg Haloperidol (Haldol) 5 mg PO Q6H PRN PRN Reason: Agitation Last Admin: 03/11/19 23:38 Dose: 5 mg Haloperidol (Haldol) 10 mg PO ONETIME ONE Stop: 03/16/19 13:53 Last Admin: 03/16/19 14:22 Dose: Not Given Haloperidol Lactate (Haldol) 5 mg IM ONETIME ONE Stop: 03/16/19 14:17 Last Admin: 03/16/19 14:22 Dose: 5 mg Sodium Chloride (Normal Saline) 1,000 mls @ 999 mls/hr IV .Bolus ONE Stop: 03/09/19 12:59 Last Admin: 03/09/19 12:11 Dose: 999 mls/hr Levofloxacin/Dextrose 500 mg/ (Premix) 100 mls @ 100 mls/hr IV ONETIME ONE Stop: 03/09/19 14:32 Last Admin: 03/09/19 13:47 Dose: 100 mls/hr Sodium Chloride (Normal Saline) 1,000 mls @ 75 mls/hr IV ASDIRECTED [facility] Last Admin: 03/11/19 06:41 Dose: 75 mls/hr Ceftriaxone Sodium/Dextrose 1 (gm/ Premix) 50 mls @ 100 mls/hr IV Q24H [facility] Last Admin: 03/11/19 09:03 Dose: 100 mls/hr Insulin Aspart (Novolog) 0 unit SUBCUT ACBREAKFASTANDBED [facility]; Protocol Lorazepam (Ativan) 2 mg IM ONETIME ONE Stop: 03/16/19 14:57 Last Admin: 03/16/19 15:04 Dose: 2 mg Oxycodone HCl (Oxycodone) 5 mg PO Q4H PRN PRN Reason: Pain (moderate 4-6) - Exam General: Alert, Oriented, Cooperative, No Acute Distress Lungs: Clear to Auscultation, Normal Respiratory Effort Cardiovascular: Regular Rate, Regular Rhythm GI/Abdominal Exam: Normal Bowel Sounds, Soft, Non-Tender Extremities: Normal Inspection, Normal Range of Motion, Pedal Edema (+1 edema, non pitting) Neurological: No New Focal Deficit Psy/Mental Status: Alert, Normal Affect, Normal Mood - Problem List & Annotations (1) UTI (urinary tract infection) SNOMED Code(s): 07528099 Code(s): N39.0 - URINARY TRACT INFECTION, SITE NOT SPECIFIED Status: Acute Current Visit: Yes Qualifiers: Urinary tract infection type: acute cystitis Hematuria presence: without hematuria Qualified Code(s): N30.00 - Acute cystitis without hematuria (2) Delayed emotional development SNOMED Code(s): 088890872 Code(s): F88 - OTHER DISORDERS OF PSYCHOLOGICAL DEVELOPMENT Status: Chronic Priority: High Current Visit: Yes (3) Diabetes mellitus type 2 in obese SNOMED Code(s): 88069374 Code(s): E11.69 - TYPE 2 DIABETES MELLITUS WITH OTHER SPECIFIED COMPLICATION ; E66.9 - OBESITY, UNSPECIFIED Status: Chronic Priority: High Current Visit: Yes - Problem List Review Problem List Initiated/Reviewed/Updated: Yes - Plan Plan:: This 58 year old male admitted with AMS and UTI 1. UTI: Will discontinued Cefdinir, treatment course complete. 2. DM Type 2: Novolog SSI. Holding Metformin and Victozia. BS stable. 3. PMH developmental delays: Has been wandering and not taking oral medications. Ativan IM started over the weekend. Looking at further evaluation of mental health. Ben, social work assisting with possible placement. VTE prophylaxis: Heparin. Dispo: Pending placement and further screening for SNF placement. <Karlos Monsalve - Last Filed: 03/18/19 10:09> - General Info Admission Dx/Problem (Free Text): I have seen and examined to patient independently of Jaye Cutler CNP. I have discussed the case for care of this patient with her. I have reviewed and approve of the plan of care as outlined by her. Please see orders. Awaiting placement. - Patient Data Vitals - Most Recent: Last Vital Signs Temp 35.9 C 03/18/19 07:18 Pulse 82 03/18/19 07:18 Resp 16 03/18/19 07:18 BP 124/78 03/18/19 09:00 Pulse Ox 95 03/18/19 07:18 I&O - Last 24 Hours: Intake & Output 03/17/19 03/18/19 03/18/19 22:59 06:59 14:59 Intake Total 2700 3020 Output Total 1470 Balance 1230 3020 Lab Results Last 24 Hours: Laboratory Results - last 24 hr 03/17/19 03/17/19 03/17/19 Range/Units 11:03 16:16 21:13 POC Glucose 206 H 256 H 221 H (60-110) mg/dL Med Orders - Current: Current Medications Docusate Sodium (Colace) 100 mg PO BID PRN PRN Reason: Constipation Heparin Sodium (Porcine) (Heparin Sodium) 5,000 units SUBCUT Q8H [facility] Last Admin: 03/18/19 06:46 Dose: 5,000 units Ibuprofen (Motrin) 400 mg PO Q6H PRN PRN Reason: Pain (mild 1-3) Indapamide (Indapamide) 2.5 mg PO DAILY [facility] Last Admin: 03/18/19 09:00 Dose: 2.5 mg Insulin Aspart (Novolog) 0 unit SUBCUT TIDAC [facility]; Protocol Last Admin: 03/18/19 08:59 Dose: 6 units Lorazepam (Ativan) 2 mg IM Q6H PRN PRN Reason: Agitation Last Admin: 03/17/19 23:55 Dose: 2 mg Losartan Potassium (Cozaar) 100 mg PO DAILY [facility] Last Admin: 03/18/19 09:00 Dose: 100 mg Ondansetron HCl (Zofran Odt) 4 mg PO Q6H PRN PRN Reason: nausea, able to take PO Sodium Chloride (Saline Flush) 10 ml FLUSH ASDIRECTED PRN PRN Reason: Keep Vein Open Last Admin: 03/09/19 12:12 Dose: 10 ml Sodium Chloride (Saline Flush) 2.5 ml FLUSH ASDIRECTED PRN PRN Reason: Keep Vein Open Last Admin: 03/09/19 12:12 Dose: 2.5 ml Temazepam (Restoril) 15 mg PO BEDTIME PRN PRN Reason: Sleep Last Admin: 03/17/19 20:56 Dose: 15 mg Discontinued Medications Cefdinir (Omnicef) 300 mg PO BID [facility] Last Admin: 03/18/19 09:01 Dose: 300 mg Haloperidol (Haldol) 5 mg PO ONETIME ONE Stop: 03/09/19 15:04 Last Admin: 03/09/19 15:11 Dose: 5 mg Haloperidol (Haldol) 5 mg PO Q6H PRN PRN Reason: Agitation Last Admin: 03/11/19 23:38 Dose: 5 mg Haloperidol (Haldol) 10 mg PO ONETIME ONE Stop: 03/16/19 13:53 Last Admin: 03/16/19 14:22 Dose: Not Given Haloperidol Lactate (Haldol) 5 mg IM ONETIME ONE Stop: 03/16/19 14:17 Last Admin: 03/16/19 14:22 Dose: 5 mg Sodium Chloride (Normal Saline) 1,000 mls @ 999 mls/hr IV .Bolus ONE Stop: 03/09/19 12:59 Last Admin: 03/09/19 12:11 Dose: 999 mls/hr Levofloxacin/Dextrose 500 mg/ (Premix) 100 mls @ 100 mls/hr IV ONETIME ONE Stop: 03/09/19 14:32 Last Admin: 03/09/19 13:47 Dose: 100 mls/hr Sodium Chloride (Normal Saline) 1,000 mls @ 75 mls/hr IV ASDIRECTED [facility] Last Admin: 03/11/19 06:41 Dose: 75 mls/hr Ceftriaxone Sodium/Dextrose 1 (gm/ Premix) 50 mls @ 100 mls/hr IV Q24H [facility] Last Admin: 03/11/19 09:03 Dose: 100 mls/hr Insulin Aspart (Novolog) 0 unit SUBCUT ACBREAKFASTANDBED [facility]; Protocol Lorazepam (Ativan) 2 mg IM ONETIME ONE Stop: 03/16/19 14:57 Last Admin: 03/16/19 15:04 Dose: 2 mg Oxycodone HCl (Oxycodone) 5 mg PO Q4H PRN PRN Reason: Pain (moderate 4-6) - Problem List & Annotations (1) Altered mental status SNOMED Code(s): 457822932 Code(s): R41.82 - ALTERED MENTAL STATUS, UNSPECIFIED Status: Acute Priority: High Current Visit: Yes Qualifiers: Altered mental status type: unspecified Qualified Code(s): R41.82 - Altered mental status, unspecified (2) Delayed emotional development SNOMED Code(s): 864958391 Code(s): F88 - OTHER DISORDERS OF PSYCHOLOGICAL DEVELOPMENT Status: Chronic Priority: High Current Visit: Yes (3) Diabetes mellitus type 2 in obese SNOMED Code(s): 52180830 Code(s): E11.69 - TYPE 2 DIABETES MELLITUS WITH OTHER SPECIFIED COMPLICATION ; E66.9 - OBESITY, UNSPECIFIED Status: Chronic Priority: High Current Visit: Yes (4) Noncompliance SNOMED Code(s): 7562517 Code(s): Z91.19 - PATIENT'S NONCOMPLIANCE W OTH MEDICAL TREATMENT AND REGIMEN Status: Chronic Priority: Medium Current Visit: Yes (5) Total self-care deficit SNOMED Code(s): 40406591 Code(s): R41.89 - OTH SYMPTOMS AND SIGNS W COGNITIVE FUNCTIONS AND AWARENESS Status: Chronic Priority: High Current Visit: Yes
[2019-03-18] MEDS: Insulin Aspart 100 Units/ML 3 ML Pen SUBCUT SCH ×3 (08:59→16:55)
[2019-03-18] MEDS: Losartan 50 MG Tab PO SCH (09:00)
[2019-03-18] MEDS: Cefdinir 300 MG Cap PO SCH (09:01)
--- NOTE | 2019-03-18 11:53 | PCM.SN ---
<Jaye Cutler M - Last Filed: 03/18/19 11:50> - Free Text/Narrative Note: Spoke with Dr Anthony MD in acute psychiatric unit at [facility]. She feels this is more acute delirium vs psychiatric concern and did not accept patient for transfer. [facility] as no beds available and the same with [facility] in [place]. Updated Ben, Social work, who will reach out to Human Services, who recommended inpatient psychiatric evaluation. <Karlos Monsalve M - Last Filed: 03/18/19 17:21> - Free Text/Narrative Note: I have seen and examined to patient independently of Jaye Cutler CNP. I have discussed the case for care of this patient with her. I have reviewed and approve of the plan of care as outlined by her. Please see orders. Awaiting placement.
[2019-03-18] MEDS: Temazepam 15 MG Cap PO PRN (20:49)
[2019-03-19 05:37] LABS: CHLORIDE,CL 97 mmol/L (98-107); SODIUM,NA 134 mmol/L (136-148)
[2019-03-19] MEDS: Heparin Sodium 5,000 Units/ML Vial SUBCUT SCH ×3 (06:02→21:37)
[2019-03-19] MEDS: Insulin Aspart 100 Units/ML 3 ML Pen SUBCUT SCH ×3 (06:31→16:44)
[2019-03-19] MEDS: Losartan 50 MG Tab PO SCH (08:56)
--- NOTE | 2019-03-19 09:58 | PCM.PN ---
- General Info Date of Service: 03/19/19 Admission Dx/Problem (Free Text): Self care deficit Subjective Update: Lying in bed Sitter at bedside. No complaints this morning. Alert. Functional Status: Reports: Pain Controlled, Tolerating Diet, Ambulating, Urinating - Review of Systems General: Reports: No Symptoms. Denies: Weakness, Fatigue HEENT: Reports: No Symptoms. Denies: Headaches, Sore Throat Pulmonary: Reports: No Symptoms. Denies: Shortness of Breath Cardiovascular: Reports: No Symptoms. Denies: Chest Pain Gastrointestinal: Reports: No Symptoms. Denies: Abdominal Pain, Nausea, Vomiting Skin: Reports: No Symptoms Neurological: Reports: No Symptoms Psychiatric: Reports: Mood Lability. Denies: Agitation, Hallucinations, Suicidal Ideation, Homicidal Ideation - Patient Data Vitals - Most Recent: Last Vital Signs Temp 97.2 F 03/19/19 07:16 Pulse 76 03/19/19 07:16 Resp 18 03/19/19 07:16 BP 120/69 03/19/19 08:56 Pulse Ox 93 L 03/19/19 07:16 Weight - Most Recent: 97.069 kg I&O - Last 24 Hours: Intake & Output 03/18/19 03/19/19 03/19/19 22:59 06:59 14:59 Intake Total 1000 1000 Balance 1000 1000 Lab Results Last 24 Hours: Laboratory Results - last 24 hr 03/18/19 03/18/19 03/18/19 Range/Units 06:51 11:29 16:17 WBC (4.0-11.0) K/uL RBC (4.50-5.90) M/uL Hgb (13.0-17.0) g/dL Hct (38.0-50.0) % MCV (80.0-98.0) fL MCH (27.0-32.0) pg MCHC (31.0-37.0) g/dL RDW Std Deviation (28.0-62.0) fl RDW Coeff of Mariangel (11.0-15.0) % Plt Count (150-400) K/uL MPV (7.40-12.00) fL Neut % (Auto) (48.0-80.0) % Lymph % (Auto) (16.0-40.0) % Armstrong % (Auto) (0.0-15.0) % Eos % (Auto) (0.0-7.0) % Baso % (Auto) (0.0-1.5) % Neut # (Auto) (1.4-5.7) K/uL Lymph # (Auto) (0.6-2.4) K/uL Armstrong # (Auto) (0.0-0.8) K/uL Eos # (Auto) (0.0-0.7) K/uL Baso # (Auto) (0.0-0.1) K/uL Nucleated RBC % /100WBC Nucleated RBCs # K/uL Sodium (136-148) mmol/L Potassium (3.5-5.1) mmol/L Chloride (98-107) mmol/L Carbon Dioxide (21.0-32.0) mmol/L BUN (7.0-18.0) mg/dL Creatinine (0.8-1.3) mg/dL Est Cr Clr Drug Dosing mL/min Estimated GFR (MDRD) ml/min Glucose (74-106) mg/dL POC Glucose 207 H 237 H 193 H (60-110) mg/dL Calcium (8.5-10.1) mg/dL Vitamin B12 (193-986) pg/mL 03/18/19 03/19/19 03/19/19 Range/Units 22:24 04:50 04:50 WBC 6.21 (4.0-11.0) K/uL RBC 4.07 L (4.50-5.90) M/uL Hgb 12.2 L (13.0-17.0) g/dL Hct 37.5 L (38.0-50.0) % MCV 92.1 (80.0-98.0) fL MCH 30.0 (27.0-32.0) pg MCHC 32.5 (31.0-37.0) g/dL RDW Std Deviation 46.6 (28.0-62.0) fl RDW Coeff of Mariangel 14 (11.0-15.0) % Plt Count 208 (150-400) K/uL MPV 10.20 (7.40-12.00) fL Neut % (Auto) 64.1 (48.0-80.0) % Lymph % (Auto) 22.9 (16.0-40.0) % Armstrong % (Auto) 10.6 (0.0-15.0) % Eos % (Auto) 1.9 (0.0-7.0) % Baso % (Auto) 0.5 (0.0-1.5) % Neut # (Auto) 4.0 (1.4-5.7) K/uL Lymph # (Auto) 1.4 (0.6-2.4) K/uL Armstrong # (Auto) 0.7 (0.0-0.8) K/uL Eos # (Auto) 0.1 (0.0-0.7) K/uL Baso # (Auto) 0.0 (0.0-0.1) K/uL Nucleated RBC % 0.0 /100WBC Nucleated RBCs # 0 K/uL Sodium (136-148) mmol/L Potassium (3.5-5.1) mmol/L Chloride (98-107) mmol/L Carbon Dioxide (21.0-32.0) mmol/L BUN (7.0-18.0) mg/dL Creatinine (0.8-1.3) mg/dL Est Cr Clr Drug Dosing mL/min Estimated GFR (MDRD) ml/min Glucose (74-106) mg/dL POC Glucose 206 H (60-110) mg/dL Calcium (8.5-10.1) mg/dL Vitamin B12 358 (193-986) pg/mL 03/19/19 03/19/19 Range/Units 04:50 06:06 WBC (4.0-11.0) K/uL RBC (4.50-5.90) M/uL Hgb (13.0-17.0) g/dL Hct (38.0-50.0) % MCV (80.0-98.0) fL MCH (27.0-32.0) pg MCHC (31.0-37.0) g/dL RDW Std Deviation (28.0-62.0) fl RDW Coeff of Mariangel (11.0-15.0) % Plt Count (150-400) K/uL MPV (7.40-12.00) fL Neut % (Auto) (48.0-80.0) % Lymph % (Auto) (16.0-40.0) % Armstrong % (Auto) (0.0-15.0) % Eos % (Auto) (0.0-7.0) % Baso % (Auto) (0.0-1.5) % Neut # (Auto) (1.4-5.7) K/uL Lymph # (Auto) (0.6-2.4) K/uL Armstrong # (Auto) (0.0-0.8) K/uL Eos # (Auto) (0.0-0.7) K/uL Baso # (Auto) (0.0-0.1) K/uL Nucleated RBC % /100WBC Nucleated RBCs # K/uL Sodium 134 L (136-148) mmol/L Potassium 3.8 (3.5-5.1) mmol/L Chloride 97 L (98-107) mmol/L Carbon Dioxide 31.2 (21.0-32.0) mmol/L BUN 17 (7.0-18.0) mg/dL Creatinine 0.8 (0.8-1.3) mg/dL Est Cr Clr Drug Dosing 94.10 mL/min Estimated GFR (MDRD) > 60.0 ml/min Glucose 179 H (74-106) mg/dL POC Glucose 185 H (60-110) mg/dL Calcium 9.0 (8.5-10.1) mg/dL Vitamin B12 (193-986) pg/mL Med Orders - Current: Current Medications Docusate Sodium (Colace) 100 mg PO BID PRN PRN Reason: Constipation Heparin Sodium (Porcine) (Heparin Sodium) 5,000 units SUBCUT Q8H [facility] Last Admin: 03/19/19 06:02 Dose: 5,000 units Ibuprofen (Motrin) 400 mg PO Q6H PRN PRN Reason: Pain (mild 1-3) Indapamide (Indapamide) 2.5 mg PO DAILY [facility] Last Admin: 03/19/19 08:55 Dose: 2.5 mg Insulin Aspart (Novolog) 0 unit SUBCUT TIDAC [facility]; Protocol Last Admin: 03/19/19 06:31 Dose: 3 units Lorazepam (Ativan) 2 mg IM Q6H PRN PRN Reason: Agitation Last Admin: 03/17/19 23:55 Dose: 2 mg Losartan Potassium (Cozaar) 100 mg PO DAILY [facility] Last Admin: 03/19/19 08:56 Dose: 100 mg Ondansetron HCl (Zofran Odt) 4 mg PO Q6H PRN PRN Reason: nausea, able to take PO Sodium Chloride (Saline Flush) 10 ml FLUSH ASDIRECTED PRN PRN Reason: Keep Vein Open Last Admin: 03/09/19 12:12 Dose: 10 ml Sodium Chloride (Saline Flush) 2.5 ml FLUSH ASDIRECTED PRN PRN Reason: Keep Vein Open Last Admin: 03/09/19 12:12 Dose: 2.5 ml Temazepam (Restoril) 15 mg PO BEDTIME PRN PRN Reason: Sleep Last Admin: 03/18/19 20:49 Dose: 15 mg Discontinued Medications Cefdinir (Omnicef) 300 mg PO BID [facility] Last Admin: 03/18/19 09:01 Dose: 300 mg Haloperidol (Haldol) 5 mg PO ONETIME ONE Stop: 03/09/19 15:04 Last Admin: 03/09/19 15:11 Dose: 5 mg Haloperidol (Haldol) 5 mg PO Q6H PRN PRN Reason: Agitation Last Admin: 03/11/19 23:38 Dose: 5 mg Haloperidol (Haldol) 10 mg PO ONETIME ONE Stop: 03/16/19 13:53 Last Admin: 03/16/19 14:22 Dose: Not Given Haloperidol Lactate (Haldol) 5 mg IM ONETIME ONE Stop: 03/16/19 14:17 Last Admin: 03/16/19 14:22 Dose: 5 mg Sodium Chloride (Normal Saline) 1,000 mls @ 999 mls/hr IV .Bolus ONE Stop: 03/09/19 12:59 Last Admin: 03/09/19 12:11 Dose: 999 mls/hr Levofloxacin/Dextrose 500 mg/ (Premix) 100 mls @ 100 mls/hr IV ONETIME ONE Stop: 03/09/19 14:32 Last Admin: 03/09/19 13:47 Dose: 100 mls/hr Sodium Chloride (Normal Saline) 1,000 mls @ 75 mls/hr IV ASDIRECTED [facility] Last Admin: 03/11/19 06:41 Dose: 75 mls/hr Ceftriaxone Sodium/Dextrose 1 (gm/ Premix) 50 mls @ 100 mls/hr IV Q24H [facility] Last Admin: 03/11/19 09:03 Dose: 100 mls/hr Insulin Aspart (Novolog) 0 unit SUBCUT ACBREAKFASTANDBED [facility]; Protocol Lorazepam (Ativan) 2 mg IM ONETIME ONE Stop: 03/16/19 14:57 Last Admin: 03/16/19 15:04 Dose: 2 mg Oxycodone HCl (Oxycodone) 5 mg PO Q4H PRN PRN Reason: Pain (moderate 4-6) - Exam General: Alert, Oriented, Cooperative, No Acute Distress Lungs: Clear to Auscultation, Normal Respiratory Effort Cardiovascular: Regular Rate, Regular Rhythm GI/Abdominal Exam: Normal Bowel Sounds, Soft, Non-Tender, No Organomegaly Extremities: Normal Inspection, Normal Range of Motion, Non-Tender, No Pedal Edema Neurological: No New Focal Deficit Psy/Mental Status: Alert, Normal Affect, Normal Mood - Problem List & Annotations (1) UTI (urinary tract infection) SNOMED Code(s): 14866458 Code(s): N39.0 - URINARY TRACT INFECTION, SITE NOT SPECIFIED Status: Acute Current Visit: Yes Qualifiers: Urinary tract infection type: acute cystitis Hematuria presence: without hematuria Qualified Code(s): N30.00 - Acute cystitis without hematuria (2) Delayed emotional development SNOMED Code(s): 648563677 Code(s): F88 - OTHER DISORDERS OF PSYCHOLOGICAL DEVELOPMENT Status: Chronic Priority: High Current Visit: Yes (3) Diabetes mellitus type 2 in obese SNOMED Code(s): 07416597 Code(s): E11.69 - TYPE 2 DIABETES MELLITUS WITH OTHER SPECIFIED COMPLICATION ; E66.9 - OBESITY, UNSPECIFIED Status: Chronic Priority: High Current Visit: Yes - Problem List Review Problem List Initiated/Reviewed/Updated: Yes - Plan Plan:: This 58 year old male admitted with AMS and UTI 1. DM Type 2: Novolog SSI. Holding Metformin and Victozia. BS stable. 2. PMH developmental delays: Has been wandering and not taking oral medications. Ativan IM . Looking at further evaluation of mental health. Ben, social work assisting with possible placement. VTE prophylaxis: Heparin. Dispo: Pending placement and further screening for SNF placement.
[2019-03-20] MEDS: Heparin Sodium 5,000 Units/ML Vial SUBCUT SCH ×3 (06:26→22:02)
[2019-03-20] MEDS: Insulin Aspart 100 Units/ML 3 ML Pen SUBCUT SCH ×3 (07:38→17:09)
--- NOTE | 2019-03-20 08:16 | PCM.PN ---
- General Info Date of Service: 03/20/19 Admission Dx/Problem (Free Text): Self care deficit Subjective Update: Feeling good this morning. No other concerns. Sitter at bedside. Functional Status: Reports: Pain Controlled, Tolerating Diet, Ambulating, Urinating - Review of Systems General: Reports: No Symptoms. Denies: Weakness, Fatigue, Malaise HEENT: Reports: No Symptoms Pulmonary: Reports: No Symptoms. Denies: Shortness of Breath Cardiovascular: Reports: No Symptoms. Denies: Chest Pain Gastrointestinal: Reports: No Symptoms. Denies: Abdominal Pain, Nausea, Vomiting Musculoskeletal: Reports: No Symptoms Skin: Reports: No Symptoms Neurological: Reports: No Symptoms Psychiatric: Reports: No Symptoms - Patient Data Vitals - Most Recent: Last Vital Signs Temp 97.0 F 03/20/19 08:00 Pulse 81 03/20/19 08:00 Resp 18 03/20/19 08:00 BP 145/95 H 03/20/19 08:00 Pulse Ox 96 03/20/19 08:00 Weight - Most Recent: 97.069 kg I&O - Last 24 Hours: Intake & Output 03/19/19 03/20/19 03/20/19 22:59 06:59 14:59 Intake Total 2190 3400 Output Total 0 Balance 2190 3400 Lab Results Last 24 Hours: Laboratory Results - last 24 hr 03/19/19 03/19/19 03/19/19 Range/Units 11:01 16:09 21:43 POC Glucose 192 H 251 H 139 H (60-110) mg/dL 03/20/19 Range/Units 06:28 POC Glucose 152 H (60-110) mg/dL Med Orders - Current: Current Medications Docusate Sodium (Colace) 100 mg PO BID PRN PRN Reason: Constipation Heparin Sodium (Porcine) (Heparin Sodium) 5,000 units SUBCUT Q8H REPLACED BY [facility] Last Admin: 03/20/19 06:26 Dose: 5,000 units Ibuprofen (Motrin) 400 mg PO Q6H PRN PRN Reason: Pain (mild 1-3) Indapamide (Indapamide) 2.5 mg PO DAILY REPL[facility] BY [facility] Last Admin: 03/19/19 08:55 Dose: 2.5 mg Insulin Aspart (Novolog) 0 unit SUBCUT TIDAC REPLACED BY [facility]; Protocol Last Admin: 03/20/19 07:38 Dose: 3 units Lorazepam (Ativan) 2 mg IM Q6H PRN PRN Reason: Agitation Last Admin: 03/17/19 23:55 Dose: 2 mg Losartan Potassium (Cozaar) 100 mg PO DAILY REPLACED BY [facility] Last Admin: 03/19/19 08:56 Dose: 100 mg Ondansetron HCl (Zofran Odt) 4 mg PO Q6H PRN PRN Reason: nausea, able to take PO Sodium Chloride (Saline Flush) 10 ml FLUSH ASDIRECTED PRN PRN Reason: Keep Vein Open Last Admin: 03/09/19 12:12 Dose: 10 ml Sodium Chloride (Saline Flush) 2.5 ml FLUSH ASDIRECTED PRN PRN Reason: Keep Vein Open Last Admin: 03/09/19 12:12 Dose: 2.5 ml Temazepam (Restoril) 15 mg PO BEDTIME PRN PRN Reason: Sleep Last Admin: 03/18/19 20:49 Dose: 15 mg Discontinued Medications Cefdinir (Omnicef) 300 mg PO BID REPLACED BY [facility] Last Admin: 03/18/19 09:01 Dose: 300 mg Haloperidol (Haldol) 5 mg PO ONETIME ONE Stop: 03/09/19 15:04 Last Admin: 03/09/19 15:11 Dose: 5 mg Haloperidol (Haldol) 5 mg PO Q6H PRN PRN Reason: Agitation Last Admin: 03/11/19 23:38 Dose: 5 mg Haloperidol (Haldol) 10 mg PO ONETIME ONE Stop: 03/16/19 13:53 Last Admin: 03/16/19 14:22 Dose: Not Given Haloperidol Lactate (Haldol) 5 mg IM ONETIME ONE Stop: 03/16/19 14:17 Last Admin: 03/16/19 14:22 Dose: 5 mg Sodium Chloride (Normal Saline) 1,000 mls @ 999 mls/hr IV .Bolus ONE Stop: 03/09/19 12:59 Last Admin: 03/09/19 12:11 Dose: 999 mls/hr Levofloxacin/Dextrose 500 mg/ (Premix) 100 mls @ 100 mls/hr IV ONETIME ONE Stop: 03/09/19 14:32 Last Admin: 03/09/19 13:47 Dose: 100 mls/hr Sodium Chloride (Normal Saline) 1,000 mls @ 75 mls/hr IV ASDIRECTED REPLACED BY [facility] Last Admin: 03/11/19 06:41 Dose: 75 mls/hr Ceftriaxone Sodium/Dextrose 1 (gm/ Premix) 50 mls @ 100 mls/hr IV Q24H REPLACED BY [facility] Last Admin: 03/11/19 09:03 Dose: 100 mls/hr Insulin Aspart (Novolog) 0 unit SUBCUT ACBREAKFASTANDBED REPLACED BY [facility]; Protocol Lorazepam (Ativan) 2 mg IM ONETIME ONE Stop: 03/16/19 14:57 Last Admin: 03/16/19 15:04 Dose: 2 mg Oxycodone HCl (Oxycodone) 5 mg PO Q4H PRN PRN Reason: Pain (moderate 4-6) - Exam General: Alert, Oriented, Cooperative, No Acute Distress Lungs: Clear to Auscultation, Normal Respiratory Effort Cardiovascular: Regular Rate, Regular Rhythm GI/Abdominal Exam: Normal Bowel Sounds, Soft, Non-Tender, No Organomegaly Extremities: Normal Inspection, Normal Range of Motion, Non-Tender, No Pedal Edema Neurological: No New Focal Deficit Psy/Mental Status: Alert, Normal Affect, Normal Mood - Problem List & Annotations (1) UTI (urinary tract infection) SNOMED Code(s): 95844546 Code(s): N39.0 - URINARY TRACT INFECTION, SITE NOT SPECIFIED Status: Resolved Current Visit: Yes Qualifiers: Urinary tract infection type: acute cystitis Hematuria presence: without hematuria Qualified Code(s): N30.00 - Acute cystitis without hematuria (2) Delayed emotional development SNOMED Code(s): 214797820 Code(s): F88 - OTHER DISORDERS OF PSYCHOLOGICAL DEVELOPMENT Status: Chronic Priority: High Current Visit: Yes (3) Diabetes mellitus type 2 in obese SNOMED Code(s): 41680629 Code(s): E11.69 - TYPE 2 DIABETES MELLITUS WITH OTHER SPECIFIED COMPLICATION ; E66.9 - OBESITY, UNSPECIFIED Status: Chronic Priority: High Current Visit: Yes - Problem List Review Problem List Initiated/Reviewed/Updated: Yes - My Orders Last 24 Hours: My Active Orders 03/19/19 15:16 Consult to Physician [CONS] Routine 03/19/19 15:17 Notify Provider Consults [RC] ASDIRECTED - Plan Plan:: This 58 year old male admitted with AMS and UTI 1. DM Type 2: Novolog SSI. Holding Metformin and Victozia. BS stable. 2. PMH developmental delays: Dr Souza to evaluate this afternoon to help with disposition. No recent Ativan, last dos 03/17. Ben, social work assisting with possible placement. [facility] has declined admission at this time. Looking into [facility]. BrotherThomas, is updated via Ben. VTE prophylaxis: Heparin. Dispo: Pending placement and further screening for SNF placement.
[2019-03-20] MEDS: Losartan 50 MG Tab PO SCH (08:27)
[2019-03-21] MEDS: Heparin Sodium 5,000 Units/ML Vial SUBCUT SCH ×3 (05:54→22:01)
[2019-03-21] MEDS: Insulin Aspart 100 Units/ML 3 ML Pen SUBCUT SCH ×3 (06:55→16:37)
[2019-03-21] MEDS: Losartan 50 MG Tab PO SCH (08:44)
--- NOTE | 2019-03-21 11:25 | CONS ---
DATE OF CONSULTATION: 03/20/2019 DATE OF : 1960 PRIMARY CARE PHYSICIAN: None PCP Site where the services are provided, our [facility] in [place], [place]. Site where the services are provided from our offices in [facility]. Length of service for this 60-minute inpatient telemedicine event is 60 minutes. IDENTIFICATION: The patient is a 58-year-old male, who was admitted to the inpatient Med/Surg unit at [facility] in [place], [place]. He is seen for psychiatric evaluation per the request of staff attending, Dr. Abraham and nurse practitioner, Jaye Cutler. CHIEF COMPLAINT: "I have diabetes." HISTORY OF PRESENT ILLNESS: The patient is a 58-year-old male, who states he was admitted "sometime in January" because of complications of diabetes and also because of "surgery on my ankle." He states that he is still in the hospital because he is "awaiting the results" of the tests that have been done and also the procedures that have been done on his ankle noting "they put a brace on him." The patient states his mood is good. He is sleeping well and he does not have any problems with excessive anxiety. Staff is reporting that the patient has been wandering in the halls and the family member he had been living with refused to take him back because they state that they have a hard time managing him at this point in time. He has reported history of MR but staff reporting that some members of the treatment team were concerned if whether the patient was exhibiting psychotic symptoms. Per his report, the patient denies that he has psychotic symptoms, and in fact, he denies any psychotic delusional paranoid symptoms at all. He denies any suicidal or homicidal. Again, states that he is doing well generally, mood typically just gets a little restless being cooked up on the hospital unit. The patient does state that he has good appetite and maintains interest in day-to-day activities particularly in walking the halls of the hospital to stay active. MEDICATIONS: Psychiatric medications prior to admission none. Since admission, the patient has been prescribed p.r.n. Ativan, but he had his last dose on March 17 and he has a p.r.n. dose of Restoril 15 mg p.o. at bedtime. He has not been using this medication for sleep at night. ALLERGIES: 1. Tylenol. 2. Naproxen. 3. Penicillin. PAST MEDICAL HISTORY: 1. Type 2 diabetes. 2. Hypertension. There is no report of surgically repaired ankle from staff. REVIEW OF SYSTEMS: Aside from endocrine and cardiovascular, all other major organ systems are negative at this point in time for acute difficulties or complications. FAMILY PSYCHIATRIC AND CD HISTORY: reported that the patient has a sister who is possibly having mental retardation as well. PAST PSYCHIATRIC AND CD HISTORY: Essentially negative. The patient is denying any psychiatric hospitalizations or chemical dependency treatments. He is a nontobacco user. He denies any past psychiatric medication history. SOCIAL HISTORY: The patient was born and raised in [place], [place]. He has 1 sister and 3 brothers. He lives in [place]. He had been living with his sister and a brother. He states he has never been . He has no children. Not involved in any current relationship. He is on social security disability for his mental disability. MENTAL STATUS EXAM: The patient is a 58-year-old soft-spoken white male, in no apparent distress. Speech is regular rate and rhythm, but short duration of utterance overall. The patient is cognitively oriented x3. Psychomotor activities within normal limits. There are no abnormal motor movements or ticks observed. Gait is steady. Station is normal. Mood is good. Affect is cooperative overall for the purposes of the telemedicine evaluation. There is no behavioral or stated evidence of acute suicidal or homicidal ideation or acute psychotic, delusional, or paranoid symptoms. Thought processes are slow, but organized. There are no acute manic symptoms or loose associations evident. Judgment and insight appear impaired secondary to the patient's mental retardation. Motivation for help appears fair to good. VITAL SIGNS: 134/99, 90, 16, 97.1 degrees. IMPRESSION: Collbran I: None. Collbran II: Mental retardation-mild. Collbran III: 1. Diabetes, type 2. 2. Hypertension. Collbran IV: Severe. Collbran V: 55 to 60. PLAN: 1. No psychiatric medications necessary at this point in time since the patient is not displaying any psychiatric pathology. 2. May continue the p.r.n. medications of Ativan for any breakthrough anxiety while on the unit and Restoril for sleep initiation and maintenance again as needed. 3. Would recommend that the patient be transferred to assisted living facility, when medically stable if he is unable to go back to live with family because of care constraints. This patient does appear to be a good candidate for an assisted living facility as he is not displaying any acute psychiatric pathology and he is cooperative and the main issue for the patient is his mental retardation. 4. We will continue to follow up with the patient on an as needed basis while he remains on the inpatient medical unit. 5. We will follow with the patient sooner if any complications in the interim. If the patient does have any breakthrough symptoms while on the med unit, we will revisit the issue of the need for psychiatric medications again at this point in time. Do not see any indication for psychiatric medications from antipsychotic or antidepressant modality. 6. Crisis plan is in place. DAX WALLACE /[id number]
--- NOTE | 2019-03-21 11:48 | PCM.PN ---
- General Info Date of Service: 03/21/19 Admission Dx/Problem (Free Text): Self care deficit Subjective Update: Feeling good today, talkative. No concerns. No pain. Functional Status: Reports: Pain Controlled, Tolerating Diet, Ambulating, Urinating - Review of Systems General: Reports: No Symptoms. Denies: Weakness, Fatigue HEENT: Reports: No Symptoms Pulmonary: Reports: No Symptoms. Denies: Shortness of Breath Cardiovascular: Reports: No Symptoms. Denies: Chest Pain Gastrointestinal: Reports: No Symptoms. Denies: Abdominal Pain, Nausea, Vomiting Genitourinary: Reports: No Symptoms. Denies: Dysuria, Frequency, Burning Musculoskeletal: Reports: No Symptoms Skin: Reports: No Symptoms Neurological: Reports: No Symptoms Psychiatric: Reports: No Symptoms - Patient Data Vitals - Most Recent: Last Vital Signs Temp 97.3 F 03/21/19 08:00 Pulse 81 03/21/19 08:00 Resp 17 03/21/19 08:00 BP 132/79 03/21/19 08:44 Pulse Ox 98 03/21/19 08:00 Weight - Most Recent: 97.069 kg I&O - Last 24 Hours: Intake & Output 03/20/19 03/21/19 03/21/19 22:59 06:59 14:59 Intake Total 2300 2300 Output Total 0 Balance 2300 2300 Lab Results Last 24 Hours: Laboratory Results - last 24 hr 03/20/19 03/20/19 03/21/19 Range/Units 16:46 21:15 06:07 POC Glucose 222 H 151 H 238 H (60-110) mg/dL 03/21/19 Range/Units 11:11 POC Glucose 159 H (60-110) mg/dL Med Orders - Current: Current Medications Docusate Sodium (Colace) 100 mg PO BID PRN PRN Reason: Constipation Heparin Sodium (Porcine) (Heparin Sodium) 5,000 units SUBCUT Q8H [facility] Last Admin: 03/21/19 05:54 Dose: 5,000 units Ibuprofen (Motrin) 400 mg PO Q6H PRN PRN Reason: Pain (mild 1-3) Indapamide (Indapamide) 2.5 mg PO DAILY [facility] Last Admin: 03/21/19 08:48 Dose: 2.5 mg Insulin Aspart (Novolog) 0 unit SUBCUT TIDAC [facility]; Protocol Last Admin: 03/21/19 11:35 Dose: 3 units Lorazepam (Ativan) 2 mg IM Q6H PRN PRN Reason: Agitation Last Admin: 03/17/19 23:55 Dose: 2 mg Losartan Potassium (Cozaar) 100 mg PO DAILY [facility] Last Admin: 03/21/19 08:44 Dose: 100 mg Ondansetron HCl (Zofran Odt) 4 mg PO Q6H PRN PRN Reason: nausea, able to take PO Sodium Chloride (Saline Flush) 10 ml FLUSH ASDIRECTED PRN PRN Reason: Keep Vein Open Last Admin: 03/09/19 12:12 Dose: 10 ml Sodium Chloride (Saline Flush) 2.5 ml FLUSH ASDIRECTED PRN PRN Reason: Keep Vein Open Last Admin: 03/09/19 12:12 Dose: 2.5 ml Temazepam (Restoril) 15 mg PO BEDTIME PRN PRN Reason: Sleep Last Admin: 03/18/19 20:49 Dose: 15 mg Discontinued Medications Cefdinir (Omnicef) 300 mg PO BID [facility] Last Admin: 03/18/19 09:01 Dose: 300 mg Haloperidol (Haldol) 5 mg PO ONETIME ONE Stop: 03/09/19 15:04 Last Admin: 03/09/19 15:11 Dose: 5 mg Haloperidol (Haldol) 5 mg PO Q6H PRN PRN Reason: Agitation Last Admin: 03/11/19 23:38 Dose: 5 mg Haloperidol (Haldol) 10 mg PO ONETIME ONE Stop: 03/16/19 13:53 Last Admin: 03/16/19 14:22 Dose: Not Given Haloperidol Lactate (Haldol) 5 mg IM ONETIME ONE Stop: 03/16/19 14:17 Last Admin: 03/16/19 14:22 Dose: 5 mg Sodium Chloride (Normal Saline) 1,000 mls @ 999 mls/hr IV .Bolus ONE Stop: 03/09/19 12:59 Last Admin: 03/09/19 12:11 Dose: 999 mls/hr Levofloxacin/Dextrose 500 mg/ (Premix) 100 mls @ 100 mls/hr IV ONETIME ONE Stop: 03/09/19 14:32 Last Admin: 03/09/19 13:47 Dose: 100 mls/hr Sodium Chloride (Normal Saline) 1,000 mls @ 75 mls/hr IV ASDIRECTED [facility] Last Admin: 03/11/19 06:41 Dose: 75 mls/hr Ceftriaxone Sodium/Dextrose 1 (gm/ Premix) 50 mls @ 100 mls/hr IV Q24H [facility] Last Admin: 03/11/19 09:03 Dose: 100 mls/hr Insulin Aspart (Novolog) 0 unit SUBCUT ACBREAKFASTANDBED [facility]; Protocol Lorazepam (Ativan) 2 mg IM ONETIME ONE Stop: 03/16/19 14:57 Last Admin: 03/16/19 15:04 Dose: 2 mg Oxycodone HCl (Oxycodone) 5 mg PO Q4H PRN PRN Reason: Pain (moderate 4-6) - Exam General: Alert, Oriented, Cooperative, No Acute Distress Lungs: Clear to Auscultation, Normal Respiratory Effort Cardiovascular: Regular Rate, Regular Rhythm GI/Abdominal Exam: Normal Bowel Sounds, Soft, Non-Tender, No Organomegaly Extremities: Normal Inspection, Normal Range of Motion, Non-Tender, No Pedal Edema Skin: Warm, Dry Wound/Incisions: Dressing Dry and Intact (abrasion to elbow, bandaid intact no s /s infection) Psy/Mental Status: Alert, Normal Affect, Normal Mood - Problem List & Annotations (1) Delayed emotional development SNOMED Code(s): 702262334 Code(s): F88 - OTHER DISORDERS OF PSYCHOLOGICAL DEVELOPMENT Status: Chronic Priority: High Current Visit: Yes (2) Diabetes mellitus type 2 in obese SNOMED Code(s): 78232498 Code(s): E11.69 - TYPE 2 DIABETES MELLITUS WITH OTHER SPECIFIED COMPLICATION ; E66.9 - OBESITY, UNSPECIFIED Status: Chronic Priority: High Current Visit: Yes - Problem List Review Problem List Initiated/Reviewed/Updated: Yes - Plan Plan:: This 58 year old male admitted with AMS and UTI 1. DM Type 2: Novolog SSI. Holding Metformin and Victozia. BS stable. 2. PMH developmental delays: Dr Souza evaluated yesterday afternoon to help with disposition, no concerns regariding psychiatric. Feels he is a perfect canidate for SNF. Ben, social work assisting with possible placement. [facility] has declined admission at this time. Looking into [place]. Brother, Thomas, is updated via Ben. VTE prophylaxis: Heparin. Dispo: Pending placement and further screening for SNF placement.
[2019-03-21] MEDS: LORazepam 2 MG/ML SDV IM PRN (18:09)
[2019-03-21] MEDS ORDERED: Haloperidol Lactate 5 MG/ML SDV ONE (18:18)
[2019-03-21] MEDS ORDERED: Haloperidol Lactate 5 MG/ML SDV IM ONE (18:21)
[2019-03-21] MEDS ORDERED: Haloperidol Lactate 5 MG/ML SDV IM PRN (18:23)
[2019-03-22] MEDS: Heparin Sodium 5,000 Units/ML Vial SUBCUT SCH ×2 (06:03→14:03)
[2019-03-22] MEDS: Insulin Aspart 100 Units/ML 3 ML Pen SUBCUT SCH ×2 (07:18→11:56)
[2019-03-22] MEDS: Losartan 50 MG Tab PO SCH (08:08)
[2019-03-22 08:09] VITALS: BP 147/97
--- NOTE | 2019-03-22 08:33 | PCM.DCSUM1 ---
Discharge Summary - Hospital Course Brief History: This 58-year-old gentleman with pmh of DM Type 2, HTN and developmental delay who presented to the emergency department with his family out of concern for his altered mental status, bizarre behavior and not taking any of his medications. The patient was previously admitted in January 2019. The patient does have a history of trying to escape at times from his previous hospitalization. The patient's family says that they cannot take care of him anymore at home. Further, the patient's family says that he has been warding urine in jars under his bed as well as not being able to take care of his medications to adequately take care of himself. The patient himself is alert and mostly oriented although he is somewhat vague in his answers and does not know how he got here. A review of records and indicate the patient had been driving erratically and had been picked up by the police department. The patient has admitted to his family that he would like to go to [facility]. Diagnosis: Stroke: No - Discharge Data Discharge Date: 03/22/19 Discharge Disposition: Home, Self-Care 01 Condition: Stable - Discharge Diagnosis/Problem(s) (1) Delayed emotional development SNOMED Code(s): 703878471 ICD Code: F88 - OTHER DISORDERS OF PSYCHOLOGICAL DEVELOPMENT Status: Chronic Priority: High Current Visit: Yes (2) Diabetes mellitus type 2 in obese SNOMED Code(s): 41248437 ICD Code: E11.69 - TYPE 2 DIABETES MELLITUS WITH OTHER SPECIFIED COMPLICATION ; E66.9 - OBESITY, UNSPECIFIED Status: Chronic Priority: High Current Visit: Yes - Patient Summary/Data Consults: Consultations 03/19/19 15:16 Consult to Physician [CONS] Routine - Patient Instructions Diet: Diabetic Diet Activity: As Tolerated Driving: Do Not Drive Showering/Bathing: January Shower Notify Provider of: Fever, Increased Pain, Swelling and Redness, Drainage, Nausea and/or Vomiting - Discharge Plan *PRESCRIPTION DRUG MONITORING PROGRAM REVIEWED*: No *COPY OF PRESCRIPTION DRUG MONITORING REPORT IN PATIENT MARTIN: No Home Medications: Home Meds metFORMIN [Glucophage] 1,000 mg PO BID 12/09/16 [History] Indapamide 2.5 mg PO DAILY 03/09/19 [History] Insuln Asp Prot/Insulin Aspart [NovoLOG Mix 70-30] 64 units SQ BID 03/09/19 [ History] Liraglutide [Victoza] 1.8 mg SQ BEDTIME 03/09/19 [History] Losartan [Cozaar] 100 mg PO DAILY 03/09/19 [History] atorvaSTATin [Lipitor] 20 mg PO DAILY 03/11/19 [History] Oxygen Therapy Mode: Room Air Referrals: Felipe Miranda MD [Ordering Only Provider] - (follow up in 1 week) - Discharge Summary/Plan Comment DC Time >30 min.: No Discharge Summary/Plan Comment: Admitting diagnoses: AMS UTI Discharge Diagnoses: Developmental delay UTI- fully treated. Other PMH DM Type 2 HTN Eddie was admitted and found to have UTI, likely causing some AMS. After treatment of UTI was initiated, Eddie became more and clear near baseline. Brother continued to want him placed in nursing facility as he felt they could no longer take care of him. He was evaluated and [facility] declined admission. Ant R[facility]os was consulted for further evaluation and felt there were no acute psychiatric issues with Eddie at this time. is attempting to get guardianship but currently there is none in place. Eddie is requesting to go home. did fill out [facility] home application, which is pending. Thomas, brother, will take Eddie home today. he is to continue his home medication as previously prescribed. He will have follow up with PCP, Dr Miranda in 1 week. - General Info Date of Service: 03/22/19 Admission Dx/Problem (Free Text: Self care deficit Subjective Update: Sitting on edge of bed, feeling good. Finished breakfast. Eager to go home. No concerns. Functional Status: Reports: Pain Controlled, Tolerating Diet, Ambulating, Urinating - Review of Systems General: Reports: No Symptoms. Denies: Weakness HEENT: Reports: No Symptoms. Denies: Sore Throat, Rhinitis Pulmonary: Reports: No Symptoms. Denies: Shortness of Breath Cardiovascular: Reports: No Symptoms. Denies: Chest Pain Gastrointestinal: Reports: No Symptoms. Denies: Abdominal Pain, Nausea, Vomiting Genitourinary: Reports: No Symptoms Musculoskeletal: Reports: No Symptoms Skin: Reports: No Symptoms Neurological: Reports: No Symptoms Psychiatric: Reports: No Symptoms - Patient Data Vitals - Most Recent: Last Vital Signs Temp 98.0 F 03/22/19 08:00 Pulse 117 H 03/22/19 08:00 Resp 16 03/22/19 08:00 BP 147/97 H 03/22/19 08:08 Pulse Ox 96 03/22/19 08:00 Weight - Most Recent: 97.069 kg I&O - Last 24 hours: Intake & Output 03/21/19 03/22/19 03/22/19 22:59 06:59 14:59 Intake Total 1000 1050 360 Output Total 0 Balance 1000 1050 360 Lab Results - Last 24 hrs: Laboratory Results - last 24 hr 03/21/19 03/21/19 03/21/19 Range/Units 11:11 15:53 21:02 POC Glucose 159 H 219 H 192 H (60-110) mg/dL Med Orders - Current: Current Medications Docusate Sodium (Colace) 100 mg PO BID PRN PRN Reason: Constipation Heparin Sodium (Porcine) (Heparin Sodium) 5,000 units SUBCUT Q8H [facility] Last Admin: 03/22/19 06:03 Dose: 5,000 units Ibuprofen (Motrin) 400 mg PO Q6H PRN PRN Reason: Pain (mild 1-3) Indapamide (Indapamide) 2.5 mg PO DAILY [facility] Last Admin: 03/22/19 08:08 Dose: 2.5 mg Insulin Aspart (Novolog) 0 unit SUBCUT TIDAC [facility]; Protocol Last Admin: 03/22/19 07:18 Dose: 15 units Losartan Potassium (Cozaar) 100 mg PO DAILY [facility] Last Admin: 03/22/19 08:08 Dose: 100 mg Ondansetron HCl (Zofran Odt) 4 mg PO Q6H PRN PRN Reason: nausea, able to take PO Sodium Chloride (Saline Flush) 10 ml FLUSH ASDIRECTED PRN PRN Reason: Keep Vein Open Last Admin: 03/09/19 12:12 Dose: 10 ml Sodium Chloride (Saline Flush) 2.5 ml FLUSH ASDIRECTED PRN PRN Reason: Keep Vein Open Last Admin: 03/09/19 12:12 Dose: 2.5 ml Temazepam (Restoril) 15 mg PO BEDTIME PRN PRN Reason: Sleep Last Admin: 03/18/19 20:49 Dose: 15 mg Discontinued Medications Cefdinir (Omnicef) 300 mg PO BID [facility] Last Admin: 03/18/19 09:01 Dose: 300 mg Haloperidol (Haldol) 5 mg PO ONETIME ONE Stop: 03/09/19 15:04 Last Admin: 03/09/19 15:11 Dose: 5 mg Haloperidol (Haldol) 5 mg PO Q6H PRN PRN Reason: Agitation Last Admin: 03/11/19 23:38 Dose: 5 mg Haloperidol (Haldol) 10 mg PO ONETIME ONE Stop: 03/16/19 13:53 Last Admin: 03/16/19 14:22 Dose: Not Given Haloperidol Lactate (Haldol) 5 mg IM ONETIME ONE Stop: 03/16/19 14:17 Last Admin: 03/16/19 14:22 Dose: 5 mg Haloperidol Lactate (Haldol) Confirm Administered Dose 5 mg .ROUTE .STK-MED ONE Stop: 03/21/19 18:19 Last Admin: 03/21/19 18:22 Dose: 5 mg Haloperidol Lactate (Haldol) 5 mg IM ONETIME ONE Stop: 03/21/19 18:22 Last Admin: 03/21/19 18:52 Dose: Not Given Haloperidol Lactate (Haldol) 5 mg IM Q8H PRN PRN Reason: Agitation Last Admin: 03/21/19 22:34 Dose: 5 mg Sodium Chloride (Normal Saline) 1,000 mls @ 999 mls/hr IV .Bolus ONE Stop: 03/09/19 12:59 Last Admin: 03/09/19 12:11 Dose: 999 mls/hr Levofloxacin/Dextrose 500 mg/ (Premix) 100 mls @ 100 mls/hr IV ONETIME ONE Stop: 03/09/19 14:32 Last Admin: 03/09/19 13:47 Dose: 100 mls/hr Sodium Chloride (Normal Saline) 1,000 mls @ 75 mls/hr IV ASDIRECTED [facility] Last Admin: 03/11/19 06:41 Dose: 75 mls/hr Ceftriaxone Sodium/Dextrose 1 (gm/ Premix) 50 mls @ 100 mls/hr IV Q24H [facility] Last Admin: 03/11/19 09:03 Dose: 100 mls/hr Insulin Aspart (Novolog) 0 unit SUBCUT ACBREAKFASTANDBED [facility]; Protocol Lorazepam (Ativan) 2 mg IM ONETIME ONE Stop: 03/16/19 14:57 Last Admin: 03/16/19 15:04 Dose: 2 mg Lorazepam (Ativan) 2 mg IM Q6H PRN PRN Reason: Agitation Last Admin: 03/21/19 18:09 Dose: 2 mg Oxycodone HCl (Oxycodone) 5 mg PO Q4H PRN PRN Reason: Pain (moderate 4-6) - Exam General: Reports: Alert, Oriented, Cooperative, No Acute Distress Neck: Reports: Supple Lungs: Reports: Clear to Auscultation, Normal Respiratory Effort Cardiovascular: Reports: Regular Rate, Regular Rhythm GI/Abdominal Exam: Normal Bowel Sounds, Soft, Non-Tender, No Distention Extremities: Normal Inspection, Normal Range of Motion, Non-Tender, No Pedal Edema Neurological: Reports: No New Focal Deficit Psy/Mental Status: Reports: Alert, Normal Affect, Normal Mood. Denies: Agitated
== END 2019-03-22 15:00 | disposition home health service (06) | DRG 690 ==
LOC: MW.ED 11:57 → MW.MS 13:44 → OBSVTOIN 14:52 → MW.MS 03-16 15:02
PROVIDERS: ADMIT Internal Medicine; ATTEND Internal Medicine
DX: N30.00 Acute cystitis without hematuria (principal); R41.82 Altered mental status, unspecified; S00.81XA Abrasion of other part of head, initial encounter; F88 Other disorders of psychological development; R41.89 Other symptoms and signs involving cognitive functions and awareness; F70 Mild intellectual disabilities; S60.512A Abrasion of left hand, initial encounter; X58.XXXA Exposure to other specified factors, initial encounter; Z88.0 Allergy status to penicillin; Z91.19 Patient's noncompliance with other medical treatment and regimen; Z88.8 Allergy status to other drugs, medicaments and biological substances; Z79.4 Long term (current) use of insulin; Z79.899 Other long term (current) drug therapy; I10 Essential (primary) hypertension; E11.9 Type 2 diabetes mellitus without complications; R46.0 Very low level of personal hygiene
CPT/HCPCS: 36415; 70450; 70450-26; 72125; 72125-26; 80048; 80053; 80061; 81001; 82607; 82962; 83036; 85025; 87086; 87088; 87186; 93005; 96360; 96361; 99284; 99285-25; A4217; A9270-GY; J0696; J1630; J1644; J1815-GY; J1956; J2060; J7040

== ENCOUNTER 2019-04-11 19:27 | Emergency (ER) | payer MEDICARE, MEDICAID ==
--- NOTE | 2019-04-11 19:35 | EDM.PDOC ---
ED HPI GENERAL MEDICAL PROBLEM - General Chief Complaint: General Stated Complaint: MEDICAL CLEARANCE Time Seen by Provider: 04/11/19 19:29 Source of Information: Reports: Patient History Limitations: Reports: No Limitations - History of Present Illness INITIAL COMMENTS - FREE TEXT/NARRATIVE: HISTORY AND PHYSICAL: History of present illness: Patient is a 59-year-old male who presents to the emergency room with law- enforcement for medical clearance. Law enforcement has arranged for this patient to be seen in [place] for an involuntary committal. Present to the emergency room for medical clearance and standard lab work. Reportedly the patient had missed mandatory behavioral meetings and has not taken his medications. Patient denies any current thoughts of self-harm or homicidal thoughts. Past medical history of diabetes, hypertension and elevated cholesterol. He states he is otherwise in good health and has no current complaints or concerns. Review of systems: As per history of present illness and below otherwise all systems reviewed and negative. Past medical history: As per history of present illness and as reviewed below otherwise noncontributory. Surgical history: As per history of present illness and as reviewed below otherwise noncontributory. Social history: See social history for further information Family history: As per history of present illness and as reviewed below otherwise noncontributory. Physical exam: General: Well-developed and well-nourished 59-year-old male. Alert and oriented. Slightly unkempt, nontoxic appearing and in no acute distress. Vital signs are stable and have been reviewed by me. Currently in custody of law- enforcement. HEENT: Atraumatic, normocephalic, pupils equal and reactive bilaterally, negative for conjunctival pallor or scleral icterus, mucous membranes moist, trachea midline. No drooling or trismus noted. No meningeal signs. No hot potato voice noted. Lungs: Clear to auscultation, breath sounds equal bilaterally, chest nontender. Heart: S1S2, regular rate and rhythm without overt murmur Abdomen: Soft, nondistended, nontender. Negative for masses. Negative for costovertebral tenderness. Pelvis: Stable nontender. Skin: Intact, warm, dry. No lesions or rashes noted. Extremities: Atraumatic, moves all extremities per self without difficulty or deficits, negative for cords or calf pain. Neurovascular unremarkable. Neuro: Awake, alert, oriented. Cranial nerves II through XII unremarkable. Cerebellum unremarkable. Motor and sensory unremarkable throughout. Exam nonfocal. Notes: Patient is agreeable to diagnostics. His vital signs are stable. Law enforcement does have an emergency committal papers filled out, they will be transporting patient to [facility] in [place]. Dr Greenwood (psychologist) will review this paperwork for law enforcement. Lab work is unremarkable. Vital signs remain stable. Patient will be transported via law enforcement by their services. Supportive care measures were reviewed and discussed. Voices understanding and is agreeable to plan of care. Neither patient or law enforcement have any further questions or concerns at this time. Diagnostics: CBC, CMP, TSH, UA, urine drug screen, acetaminophen, salicylate, ETOH Therapeutics: None Prescription: None Impression: Encounter for medical screening exam - Related Data Allergies Allergy/AdvReac Type Severity Reaction Status Date / Time acetaminophen [From Tylenol] Allergy Facial Verified 04/11/19 19:41 Swelling naproxen [From Aleve] Allergy Cannot Verified 04/11/19 19:41 Remember Penicillins Allergy Facial Verified 04/11/19 19:41 Swelling Home Meds: Home Meds metFORMIN [Glucophage] 1,000 mg PO BID 12/09/16 [History] Indapamide 2.5 mg PO DAILY 03/09/19 [History] Insuln Asp Prot/Insulin Aspart [NovoLOG Mix 70-30] 64 units SQ BID 03/09/19 [ History] Liraglutide [Victoza] 1.8 mg SQ BEDTIME 03/09/19 [History] Losartan [Cozaar] 100 mg PO DAILY 03/09/19 [History] atorvaSTATin [Lipitor] 20 mg PO DAILY 03/11/19 [History] Past Medical History HEENT History: Reports: None Cardiovascular History: Reports: Hypertension Respiratory History: Reports: None Gastrointestinal History: Reports: None Genitourinary History: Reports: None Musculoskeletal History: Reports: None Neurological History: Reports: None Psychiatric History: Reports: None Endocrine/Metabolic History: Reports: Diabetes, Type II Hematologic History: Reports: None Immunologic History: Reports: None Oncologic (Cancer) History: Reports: None Dermatologic History: Reports: None - Infectious Disease History Infectious Disease History: Reports: Chicken Pox, Measles, Mumps - Past Surgical History Head Surgeries/Procedures: Reports: None HEENT Surgical History: Reports: None Cardiovascular Surgical History: Reports: None Respiratory Surgical History: Reports: None GI Surgical History: Reports: None Male Surgical History: Reports: None Endocrine Surgical History: Reports: None Neurological Surgical History: Reports: None Other Musculoskeletal Surgeries/Procedures:: ORIF of Right Foot. Brace in place Oncologic Surgical History: Reports: None Dermatological Surgical History: Reports: None Social & Family History - Family History Family Medical History: Noncontributory - Caffeine Use Caffeine Use: Reports: Soda - Living Situation & Occupation Living situation: Reports: with Family, Single Occupation: Disabled ED ROS GENERAL - Review of Systems Review Of Systems: ROS reveals no pertinent complaints other than HPI. ED EXAM, GENERAL - Physical Exam Exam: See Below (See dictation) Course - Vital Signs Last Recorded V/S: Last Vital Signs Temp 98.2 F 04/11/19 19:41 Pulse 101 H 04/11/19 19:41 Resp 16 04/11/19 19:41 BP 143/91 H 04/11/19 19:41 Pulse Ox 18 L 04/11/19 19:41 - Orders/Labs/Meds Orders: Active Orders 24 hr Category Date Time Status CULTURE URINE [RM] Stat Lab 04/11/19 19:45 Received Azithromycin [Zithromax] Med 04/11/19 21:00 Active 1,000 mg PO Q24H Medication Orders Azithromycin (Zithromax) 1,000 mg PO Q24H TATYANA Last Admin: 04/11/19 21:04 Dose: 1,000 mg Labs: Laboratory Tests 04/11/19 04/11/19 04/11/19 Range/Units 19:45 19:45 19:52 WBC 7.90 (4.0-11.0) K/uL RBC 4.03 L (4.50-5.90) M/uL Hgb 12.1 L (13.0-17.0) g/dL Hct 38.2 (38.0-50.0) % MCV 94.8 (80.0-98.0) fL MCH 30.0 (27.0-32.0) pg MCHC 31.7 (31.0-37.0) g/dL RDW Std Deviation 48.2 (28.0-62.0) fl RDW Coeff of Mariangel 14 (11.0-15.0) % Plt Count 224 (150-400) K/uL MPV 10.00 (7.40-12.00) fL Neut % (Auto) 71.2 (48.0-80.0) % Lymph % (Auto) 15.7 L (16.0-40.0) % [place] % (Auto) 10.3 (0.0-15.0) % Eos % (Auto) 2.3 (0.0-7.0) % Baso % (Auto) 0.5 (0.0-1.5) % Neut # (Auto) 5.6 (1.4-5.7) K/uL Lymph # (Auto) 1.2 (0.6-2.4) K/uL [place] # (Auto) 0.8 (0.0-0.8) K/uL Eos # (Auto) 0.2 (0.0-0.7) K/uL Baso # (Auto) 0.0 (0.0-0.1) K/uL Nucleated RBC % 0.0 /100WBC Nucleated RBCs # 0 K/uL Sodium (136-148) mmol/L Potassium (3.5-5.1) mmol/L Chloride (98-107) mmol/L Carbon Dioxide (21.0-32.0) mmol/L BUN (7.0-18.0) mg/dL Creatinine (0.8-1.3) mg/dL Est Cr Clr Drug Dosing mL/min Estimated GFR (MDRD) ml/min Glucose (74-106) mg/dL Calcium (8.5-10.1) mg/dL Total Bilirubin (0.2-1.0) mg/dL AST (15-37) IU/L ALT (14-63) IU/L Alkaline Phosphatase (46-116) U/L Total Protein (6.4-8.2) g/dL Albumin (3.4-5.0) g/dL Globulin (2.6-4.0) g/dL Albumin/Globulin Ratio (0.9-1.6) TSH 3rd Generation (0.36-3.74) uIU/mL Urine Color YELLOW Urine Appearance CLOUDY Urine pH 5.5 (5.0-8.0) Ur Specific [place] >= 1.030 (1.001-1.035) Urine Protein 100 H (NEGATIVE) mg/dL Urine Glucose (UA) 100 H (NEGATIVE) mg/dL Urine Ketones NEGATIVE (NEGATIVE) mg/dL Urine Occult Blood LARGE H (NEGATIVE) Urine Nitrite POSITIVE H (NEGATIVE) Urine Bilirubin NEGATIVE (NEGATIVE) Urine Urobilinogen 0.2 (<2.0) EU/dL Ur Leukocyte Esterase NEGATIVE (NEGATIVE) Urine RBC 3-5 (0-2/HPF) Urine WBC 4-6 (0-5/HPF) Ur Epithelial Cells FEW (NONE-FEW) Urine Bacteria 1+ H (NEGATIVE) Urine Mucus HEAVY (NONE-MOD) Salicylates (0-20) mg/dL Urine Opiates Screen NEGATIVE (NEGATIVE) Ur Oxycodone Screen NEGATIVE (NEGATIVE) Urine Methadone Screen NEGATIVE (NEGATIVE) Acetaminophen ug/mL Ur Barbiturates Screen NEGATIVE (NEGATIVE) Ur Phencyclidine Scrn NEGATIVE (NEGATIVE) Ur Amphetamine Screen NEGATIVE (NEGATIVE) U Methamphetamines Scrn NEGATIVE (NEGATIVE) U Benzodiazepines Scrn NEGATIVE (NEGATIVE) U Cocaine Metab Screen NEGATIVE (NEGATIVE) U Marijuana (THC) Screen NEGATIVE (NEGATIVE) Ethyl Alcohol mg/dL 04/11/19 Range/Units 19:52 WBC (4.0-11.0) K/uL RBC (4.50-5.90) M/uL Hgb (13.0-17.0) g/dL Hct (38.0-50.0) % MCV (80.0-98.0) fL MCH (27.0-32.0) pg MCHC (31.0-37.0) g/dL RDW Std Deviation (28.0-62.0) fl RDW Coeff of Mariangel (11.0-15.0) % Plt Count (150-400) K/uL MPV (7.40-12.00) fL Neut % (Auto) (48.0-80.0) % Lymph % (Auto) (16.0-40.0) % [place] % (Auto) (0.0-15.0) % Eos % (Auto) (0.0-7.0) % Baso % (Auto) (0.0-1.5) % Neut # (Auto) (1.4-5.7) K/uL Lymph # (Auto) (0.6-2.4) K/uL [place] # (Auto) (0.0-0.8) K/uL Eos # (Auto) (0.0-0.7) K/uL Baso # (Auto) (0.0-0.1) K/uL Nucleated RBC % /100WBC Nucleated RBCs # K/uL Sodium 136 (136-148) mmol/L Potassium 3.7 (3.5-5.1) mmol/L Chloride 102 (98-107) mmol/L Carbon Dioxide 25.7 (21.0-32.0) mmol/L BUN 23 H (7.0-18.0) mg/dL Creatinine 0.8 (0.8-1.3) mg/dL Est Cr Clr Drug Dosing 96.19 mL/min Estimated GFR (MDRD) > 60.0 ml/min Glucose 209 H (74-106) mg/dL Calcium 8.9 (8.5-10.1) mg/dL Total Bilirubin 0.7 (0.2-1.0) mg/dL AST 36 (15-37) IU/L ALT 38 (14-63) IU/L Alkaline Phosphatase 75 (46-116) U/L Total Protein 7.4 (6.4-8.2) g/dL Albumin 3.4 (3.4-5.0) g/dL Globulin 4.0 (2.6-4.0) g/dL Albumin/Globulin Ratio 0.9 (0.9-1.6) TSH 3rd Generation 1.60 (0.36-3.74) uIU/mL Urine Color Urine Appearance Urine pH (5.0-8.0) Ur Specific [place] (1.001-1.035) Urine Protein (NEGATIVE) mg/dL Urine Glucose (UA) (NEGATIVE) mg/dL Urine Ketones (NEGATIVE) mg/dL Urine Occult Blood (NEGATIVE) Urine Nitrite (NEGATIVE) Urine Bilirubin (NEGATIVE) Urine Urobilinogen (<2.0) EU/dL Ur Leukocyte Esterase (NEGATIVE) Urine RBC (0-2/HPF) Urine WBC (0-5/HPF) Ur Epithelial Cells (NONE-FEW) Urine Bacteria (NEGATIVE) Urine Mucus (NONE-MOD) Salicylates 0.9 (0-20) mg/dL Urine Opiates Screen (NEGATIVE) Ur Oxycodone Screen (NEGATIVE) Urine Methadone Screen (NEGATIVE) Acetaminophen <2.0 ug/mL Ur Barbiturates Screen (NEGATIVE) Ur Phencyclidine Scrn (NEGATIVE) Ur Amphetamine Screen (NEGATIVE) U Methamphetamines Scrn (NEGATIVE) U Benzodiazepines Scrn (NEGATIVE) U Cocaine Metab Screen (NEGATIVE) U Marijuana (THC) Screen (NEGATIVE) Ethyl Alcohol < 3.0 mg/dL Meds: Medications Generic Name Dose Route Start Last Admin Trade Name Freq PRN Reason Stop Dose Admin Azithromycin 1,000 mg 04/11/19 21:00 04/11/19 21:04 Zithromax PO 1,000 mg Q24H TATYANA Administration Discontinued Medications Generic Name Dose Route Start Last Admin Trade Name Jacqueline PRN Reason Stop Dose Admin Ceftriaxone Sodium 250 mg/ 1 mls @ 1 mls/sec 04/11/19 20:56 04/11/19 21:05 Lidocaine HCl IM 04/11/19 20:57 1 mls/sec ONETIME ONE Administration Lidocaine HCl 2 ml 04/11/19 20:56 04/11/19 21:07 Xylocaine-Mpf 1% INJECT 04/11/19 20:57 Not Given ONETIME ONE Departure - Departure Time of Disposition: 21:16 Disposition: DC/Tfer to Other 70 Clinical Impression: Encounter for medical screening examination - Discharge Information Referrals: PCP,None [Primary Care Provider] - Forms: ED Department Discharge Additional Instructions: The following information is given to patients seen in the emergency department who are being discharged to home. This information is to outline your options for follow-up care. We provide all patients seen in our emergency department with a follow-up referral. The need for follow-up, as well as the timing and circumstances, are variable depending upon the specifics of your emergency department visit. If you don't have a primary care physician on staff, we will provide you with a referral. We always advise you to contact your personal physician following an emergency department visit to inform them of the circumstance of the visit and for follow-up with them and/or the need for any referrals to a consulting specialist. The emergency department will also refer you to a specialist when appropriate. This referral assures that you have the opportunity for follow-up care with a specialist. All of these measure are taken in an effort to provide you with optimal care, which includes your follow-up. Under all circumstances we always encourage you to contact your private physician who remains a resource for coordinating your care. When calling for follow-up care, please make the office aware that this follow-up is from your recent emergency room visit. If for any reason you are refused follow-up, please contact the [facility] at and asked to speak to the emergency department charge nurse. [facility] [address] [place] [id number] [id number] - My Orders Last 24 Hours: My Active Orders 04/11/19 19:45 CULTURE URINE [RM] Stat 04/11/19 21:00 Azithromycin [Zithromax] 1,000 mg PO Q24H - Assessment/Plan Last 24 Hours: My Active Orders 04/11/19 19:45 CULTURE URINE [RM] Stat 04/11/19 21:00 Azithromycin [Zithromax] 1,000 mg PO Q24H
[2019-04-11 20:19] LABS: ACETAMINOPHEN <2.0 ug/mL
[2019-04-11 20:26] LABS: CHLORIDE,CL 102 mmol/L (98-107); SODIUM,NA 136 mmol/L (136-148)
[2019-04-11] MEDS ORDERED: Lidocaine 1% PF 2 ML SDV INJECT ONE (20:56)
[2019-04-11] MEDS ORDERED: cefTRIAXone 250 MG in Lidocaine 1% 1 ML IM ONE (20:56)
[2019-04-11] MEDS ORDERED: Azithromycin 250 MG Tab PO SCH (21:00)
[2019-04-11 21:25] VITALS: BP 166/90
== END 2019-04-11 22:32 | disposition other institution (70) ==
LOC: MW.ED 19:27
DX: Z02.89 Encounter for other administrative examinations (principal); I10 Essential (primary) hypertension; E11.9 Type 2 diabetes mellitus without complications; Z88.0 Allergy status to penicillin; Z88.8 Allergy status to other drugs, medicaments and biological substances; Z79.4 Long term (current) use of insulin; Z79.899 Other long term (current) drug therapy
CPT/HCPCS: 36415; 80053; 80305; 81001; 84443; 85025; 87086; 96372; 99283; A9270; G0480; J0696; J2001